=== PATIENT | female | born 1950 | race Asian ===

== ENCOUNTER 2016-12-03 19:16 | Inpatient (IN) | payer MEDICARE ==
[~2016-12-03] VITALS: Ht 165.1 cm; Wt 74.8 kg
[2016-12-04] VITALS: BP 133/72
[2016-12-04] MEDS ORDERED: TYLENOL EXTRA500 MG ORAL (02:49)
[2016-12-04] MEDS ORDERED: HYDROCORTISON28.4 G5 RC (02:49)
[2016-12-04] MEDS: D5 1/2NS w/KCl 20mEq 1,000 ML IV SCH ×3 (03:45→22:49)
[2016-12-04 04:00] VITALS: BP 123/64
[2016-12-04 07:41] LABS: MEAN CORPUSCULAR HEMOGLOBIN 27.9 PG (27.0-31.0); MEAN CORPUSCULAR HGB CONC 31.7 G/DL (32.0-36.0); MEAN CORPUSCULAR VOLUME 88 FL (80-99); MEAN PLATELET VOLUME 5.6 FL (6.5-10.1); PLATELET COUNT 205 K/UL (150-450); RED CELL DISTRIBUTION WIDTH 14.2 % (11.6-14.8); WHITE BLOOD COUNT 4.5 K/UL (4.8-10.8)
[2016-12-04 07:55] VITALS: BP 113/67
[2016-12-04 07:58] LABS: INR 1.1 (0.9-1.1); PROTHROMBIN TIME 10.9 SEC (9.30-11.50)
[2016-12-04 08:12] LABS: ALANINE AMINOTRANSFERASE 8 U/L (3-33); ALBUMIN/GLOBULIN RATIO 1.7 (1.0-2.7); ANION GAP 11 (5-15); ASPARTATE AMINO TRANSFERASE 11 U/L (5-40); CALCIUM 7.8 mg/dL (8.6-10.2); CARBON DIOXIDE 25 mEQ/L (20-30); CHLORIDE 109 mEQ/L (98-107); CREATININE 0.6 mg/dL (0.5-0.9); GLOMERULAR FILTRATION RATE > 60 mL/min (>60); HEMOLYSIS 6; MAGNESIUM 2.2 mg/dL (1.7-2.5); PHOSPHORUS 3.2 mg/dL (2.5-4.8); POTASSIUM 3.5 mEQ/L (3.4-4.9); SODIUM 145 mEQ/L (135-145); TOTAL PROTEIN 4.6 g/dL (6.6-8.7)
[2016-12-04] MEDS: Hydrocortisone 1% Cr 15gm TOPIC SCH ×2 (08:20→18:25)
[2016-12-04 09:39] LABS: BAND NEUTROPHILS % (MANUAL) 0 % (0-8); BASOPHILS % (MANUAL) 0 % (0-2); EOSINOPHILS % (MANUAL) 0 % (0-3); LYMPHOCYTES % (MANUAL) 36 % (20-45); NEUTROPHILS % (MANUAL) 61 % (45-75); PLATELET ESTIMATE ADEQUATE; PLATELET MORPHOLOGY NORMAL; TOTAL CELLS COUNTED 100
[2016-12-04 09:40] LABS: ANISOCYTOSIS 1+; HYPOCHROMASIA 1+
[2016-12-04 12:06] VITALS: BP 125/80
--- NOTE | 2016-12-04 13:20 | Consultation ---
History of Present Illness General Date patient seen: Dec 04, 2016 Chief Complaint: dizzines Referring physician: Dr. Corrigan Reason for Consultation: Inpatient management Present Illness HPI 66 year old female with hx of PUD, was taken to [facility] with CC of dizziness and bright red blood per rectum. After initial work-up she was transferred [place] [facility] [place]. Pt is currently asymptomatic and receiving blood. Allergies: Coded Allergies: No Known Allergies (Unverified , 12/04/16) Medication History Scheduled Hydrocortisone 1% cream (Hydrocortisone 1% cream), 28 GM RC TWICE A DAY, ( Reported) Scheduled PRN Acetaminophen* (Tylenol Extra Strength*), 500 MG ORAL Q8H PRN for Prn Headache/ Temp > 101, (Reported) Patient History Healthcare decision maker Resuscitation status Full Code Advanced Directive on File Past Medical/Surgical History Past Medical/Surgical History: (1) PUD (peptic ulcer disease) (2) Ex-smoker Review of Systems All Other Systems: negative except mentioned in HPI Physical Exam General Appearance: WD/WN, no apparent distress Lines, tubes and drains: peripheral HEENT: normocephalic, atraumatic Neck: non-tender, normal alignment Respiratory/Chest: chest wall non-tender, lungs clear Cardiovascular/Chest: normal peripheral pulses, normal rate Abdomen: non tender Genitourinary/Rectal: normal genital exam Last 24 Hour Vital Signs Date Time Temp Pulse Resp B/P Pulse Ox O2 Delivery O2 Flow Rate FiO2 12/04/16 12:06 97.5 84 18 125/80 100 Room Air 12/04/16 11:56 87 12/04/16 08:01 129 12/04/16 07:55 97.7 88 18 113/67 98 Room Air 12/04/16 04:00 97.4 87 18 123/64 99 Room Air 12/04/16 04:00 94 12/04/16 00:00 98.2 94 18 133/72 99 Room Air 12/04/16 00:00 99 Intake and Output 12/03/16 12/04/16 19:00 07:00 Intake Total 225 ml Balance 225 ml Intake IV Total 225 ml # Voids 1 # Bowel Movements 1 Laboratory Tests Test 12/04/16 06:05 White Blood Count 4.5 K/UL (4.8-10.8) L Red Blood Count 2.60 M/UL (4.20-5.40) L Hemoglobin 7.2 G/DL (12.0-16.0) L Hematocrit 22.8 % (37.0-47.0) L Mean Corpuscular Volume 88 FL (80-99) Mean Corpuscular Hemoglobin 27.9 PG (27.0-31.0) Mean Corpuscular Hemoglobin Concent 31.7 G/DL (32.0-36.0) L Red Cell Distribution Width 14.2 % (11.6-14.8) Platelet Count 205 K/UL (150-450) Mean Platelet Volume 5.6 FL (6.5-10.1) L Neutrophils (%) (Auto) % (45.0-75.0) Lymphocytes (%) (Auto) % (20.0-45.0) Monocytes (%) (Auto) % (1.0-10.0) Eosinophils (%) (Auto) % (0.0-3.0) Basophils (%) (Auto) % (0.0-2.0) Differential Total Cells Counted 100 Neutrophils % (Manual) 61 % (45-75) Lymphocytes % (Manual) 36 % (20-45) Monocytes % (Manual) 3 % (1-10) Eosinophils % (Manual) 0 % (0-3) Basophils % (Manual) 0 % (0-2) Band Neutrophils 0 % (0-8) Platelet Estimate Adequate Platelet Morphology Normal Hypochromasia 1+ Anisocytosis 1+ Prothrombin Time 10.9 SEC (9.30-11.50) Prothromb Time International Ratio 1.1 (0.9-1.1) Activated Partial Thromboplast Time 24 SEC (23-33) Sodium Level 145 mEQ/L (135-145) Potassium Level 3.5 mEQ/L (3.4-4.9) Chloride Level 109 mEQ/L (98-107) H Carbon Dioxide Level 25 mEQ/L (20-30) Anion Gap 11 (5-15) Blood Urea Nitrogen 12 mg/dL (7-23) Creatinine 0.6 mg/dL (0.5-0.9) Estimat Glomerular Filtration Rate > 60 mL/min (>60) Glucose Level 121 mg/dL (74-106) H Calcium Level 7.8 mg/dL (8.6-10.2) L Phosphorus Level 3.2 mg/dL (2.5-4.8) Magnesium Level 2.2 mg/dL (1.7-2.5) Total Bilirubin 0.3 mg/dL (0.0-1.2) Aspartate Amino Transf (AST/SGOT) 11 U/L (5-40) Alanine Aminotransferase (ALT/SGPT) 8 U/L (3-33) Alkaline Phosphatase 33 U/L (35-104) L Total Protein 4.6 g/dL (6.6-8.7) L Albumin 2.9 g/dL (3.5-5.2) L Globulin 1.7 g/dL Albumin/Globulin Ratio 1.7 (1.0-2.7) Height (Feet): 5 Height (Inches): 6.00 Weight (Pounds): 165 Medications Current Medications Medications (Trade) Dose Ordered Sig/Betty Route PRN Reason Start Time Stop Time Status Last Admin Dose Admin Acetaminophen (Tylenol) 650 mg Q6H PRN ORAL Mild Pain/Temp > 100.5 12/04/16 01:30 01/03/17 01:29 Dextrose (Dextrose 50%) STAT PRN IV Hypoglycemia 12/04/16 01:30 01/03/17 01:29 Dextrose/ Electrolytes (D5 0.45%NS W/ KCl 20mEq) 1,000 ml @ 75 mls/hr [id number] IV 12/04/16 03:00 01/03/17 02:59 12/04/16 03:45 Hydrocortisone (Hydrocortisone) 1 applic TWICE A DAY TOPIC 12/04/16 09:00 12/10/16 18:00 12/04/16 08:20 Ondansetron HCl (Zofran) 4 mg Q4H PRN IVP Nausea & Vomiting 12/04/16 01:30 01/03/17 01:29 Pantoprazole (Protonix) 40 mg BID ORAL 12/04/16 09:00 01/03/17 08:59 12/04/16 08:20 Assessment/Plan Problem List: (1) Symptomatic anemia ICD Codes: D64.9 - Anemia, unspecified SNOMED: 251264265 (2) GIB (gastrointestinal bleeding) ICD Codes: K92.2 - Gastrointestinal hemorrhage, unspecified SNOMED: 12949055 (3) PUD (peptic ulcer disease) ICD Codes: K27.9 - Peptic ulcer, site unspecified, unspecified as acute or chronic, without hemorrhage or perforation SNOMED: 98704625 (4) Ex-smoker ICD Codes: Z87.891 - Personal history of nicotine dependence SNOMED: 1833415 Assessment/Plan NPO IV hydration prbc prn anemia w/u GI evaluation dvt prophylaxis. TREVOR GONSALES Dec 04, 2016 13:20
[2016-12-04 13:29] LABS: PATH BLOOD SMEAR/OMC SENT TO PATHOLOGIST
--- NOTE | 2016-12-04 13:57 | History & Physical ---
History and Physical History & Physicial Dictated for Int Med-Dr Sánchez no. [id number]. MENDEZ YEUNG Dec 04, 2016 13:57
[2016-12-04 14:07] LABS: RETICULOCYTE COUNT 1.2 % (0.0-2.0)
[2016-12-04 16:15] VITALS: BP 131/67
[2016-12-04 16:57] LABS: EOSINOPHILS % (AUTO) 0.5 % (0.0-3.0); LYMPHOCYTES % (AUTO) 32.5 % (20.0-45.0); MEAN CORPUSCULAR HEMOGLOBIN 29.4 PG (27.0-31.0); MEAN CORPUSCULAR VOLUME 89 FL (80-99); MEAN PLATELET VOLUME 5.5 FL (6.5-10.1); MONOCYTES % (AUTO) 8.7 % (1.0-10.0); NEUTROPHILS % (AUTO) 57.3 % (45.0-75.0); PLATELET COUNT 193 K/UL (150-450); RED BLOOD COUNT 2.76 M/UL (4.20-5.40); RED CELL DISTRIBUTION WIDTH 14.3 % (11.6-14.8); WHITE BLOOD COUNT 4.4 K/UL (4.8-10.8)
[2016-12-04 17:10] LABS: INR 1.1 (0.9-1.1); PROTHROMBIN TIME 10.7 SEC (9.30-11.50)
[2016-12-04] MEDS ORDERED: D5NS 1000ml IV ONE ×2 (17:18→17:23)
[2016-12-04] MEDS ORDERED: Tubing Blood Filter IV ONE ×2 (17:18→17:23)
[2016-12-04] MEDS ORDERED: Sterile Water Irrig 1000ml IRRIG ONE ×2 (17:18→17:23)
[2016-12-04] MEDS ORDERED: NS 275ml ONE (17:23)
[2016-12-04 20:00] VITALS: BP 127/66
--- NOTE | 2016-12-04 21:08 | History and Physical Report ---
DATE OF ADMISSION: 12/03/2016 CHIEF COMPLAINT: The patient is a 66-year-old female, presents with chief complaint of dark stools. HISTORY OF PRESENT ILLNESS: The patient has a history of peptic ulcer disease 10 years ago. The patient states she has had dark stools for approximately two days. The patient was seen at [facility] on 12/01/2016. The patient apparently had a normal hemoglobin and hematocrit at that time. The patient was discharged home to follow up with her primary care physician. The patient states she had another dark stool yesterday, 12/03/2016. The patient presented to [place] emergency room. The patient was found to have a hemoglobin of 7.2. The patient is admitted for severe anemia and rectal bleeding. REVIEW OF SYSTEMS: Constitutional: The patient denies weight loss or weight gain. The patient denies fevers or chills. HEENT: The patient denies ear or throat pain. Cardiovascular: The patient denies palpitations or chest pain. Chest: The patient denies wheezes or shortness of breath. Abdominal: The patient denies nausea, vomiting, diarrhea, or constipation. The patient complains of dark stools as above. Neurologic: The patient denied seizure or generalized weakness. Genitourinary: The patient denies dysuria or increased frequency of urination. PAST MEDICAL HISTORY: Significant for peptic ulcer disease in 2005, status post endoscopy and colonoscopy. PAST SURGICAL HISTORY: The patient denies. CURRENT MEDICATIONS: 1. A p.r.n. Tylenol. 2. Over the counter vitamins. ALLERGIES: No known drug allergies. SOCIAL HISTORY: The patient is single and is retired. The patient denies tobacco use, having quit in 2005. The patient denies alcohol use. PHYSICAL EXAMINATION: VITAL SIGNS: Temperature 98.2 degrees, respirations 18, pulse 94, and blood pressure 133/72. GENERAL: The patient is a well-developed and well-nourished female, in no apparent distress. HEENT: Eyes, pupils are equal and responsive to light and accommodation. Extraocular movements are intact. NECK: Supple without lymphadenopathy. CHEST: Lungs are clear to auscultation bilaterally without wheezes or rales. CARDIOVASCULAR: Regular rhythm and rate. S1, S2 are normal without murmurs, rubs, or gallops. ABDOMEN: Soft, nondistended with positive bowel sounds. No evidence of hepatosplenomegaly. Currently, no rebound or guarding noted. EXTREMITIES: Negative for clubbing, cyanosis, or edema. RECTAL/GENITAL: Refused. NEUROLOGIC: Cranial nerves II through XII are grossly intact without focal deficits. Motor strength is 5/5 bilaterally. Deep tendon reflexes are 2+ plantar. LABORATORY STUDIES: WBC 4.5, hemoglobin 10.2, hematocrit 22.8, and platelets 205,000. Sodium 145, potassium 3.5, chloride 109, CO2 25, BUN 12, creatinine 0.6, and glucose 121. ProTime 10.9, INR 1.1, and PTT 24. ASSESSMENT: This is a 66-year-old female with: 1. Rectal hemorrhage. 2. Syncope. 3. Severe anemia. 4. Peptic ulcer disease. TREATMENT: 1. Rectal hemorrhage. A Gastroenterology consultation was obtained with Dr. Gertrudis Nash. The patient is currently on a clear liquid diet. The patient may need endoscopy and colonoscopy to rule out upper gastrointestinal versus lower gastrointestinal bleeding. We will follow the recommendations of Gastroenterology. 2. Syncope, this is probably secondary to severe anemia. 3. Severe anemia. The patient is currently receiving two units of packed RBCs. Serial hemoglobins will be performed. Transfuse as needed for hemoglobin less than 7. 4. Peptic ulcer disease. The patient has been started empirically on intravenous Protonix. Naeem Corrigan M.D. DR: Ruben JOB#: [id number] CC:
--- NOTE | 2016-12-04 23:22 | Pulmonology Progress Note ---
Assessment/Plan Problems: (1) Symptomatic anemia (2) GIB (gastrointestinal bleeding) (3) PUD (peptic ulcer disease) (4) Ex-smoker Assessment/Plan npo IV fluids check h/h H2 reyna symptomatic treatment Subjective ROS Limited/Unobtainable: No Interval Events: no new complains, no BM Allergies: Coded Allergies: No Known Allergies (Unverified , 12/04/16) Objective Last 24 Hour Vital Signs Date Time Temp Pulse Resp B/P Pulse Ox O2 Delivery O2 Flow Rate FiO2 12/04/16 20:00 76 12/04/16 20:00 97.6 80 19 127/66 97 12/04/16 16:15 98.8 82 20 131/67 100 Room Air 12/04/16 16:07 83 12/04/16 12:06 97.5 84 18 125/80 100 Room Air 12/04/16 11:56 87 12/04/16 08:01 129 12/04/16 07:55 97.7 88 18 113/67 98 Room Air 12/04/16 04:00 97.4 87 18 123/64 99 Room Air 12/04/16 04:00 94 12/04/16 00:00 98.2 94 18 133/72 99 Room Air 12/04/16 00:00 99 Intake and Output 12/03/16 12/04/16 19:00 07:00 Intake Total 225 ml Balance 225 ml Intake IV Total 225 ml # Voids 1 # Bowel Movements 1 General Appearance: WD/WN HEENT: normocephalic, atraumatic Respiratory/Chest: chest wall non-tender, lungs clear Cardiovascular: normal peripheral pulses, normal rate Abdomen: normal bowel sounds, no organomegaly Extremities: no cyanosis, no clubbing Skin: no rash Laboratory Tests 12/04/16 06:05: White Blood Count 4.5L, Red Blood Count 2.60L, Hemoglobin 7.2L, Hematocrit 22.8L , Mean Corpuscular Volume 88, Mean Corpuscular Hemoglobin 27.9, Mean Corpuscular Hemoglobin Concent 31.7L, Red Cell Distribution Width 14.2, Platelet Count 205, Mean Platelet Volume 5.6L, Neutrophils (%) (Auto) , Lymphocytes (%) (Auto) , Monocytes (%) (Auto) , Eosinophils (%) (Auto) , Basophils (%) (Auto) , Differential Total Cells Counted 100, Neutrophils % ( Manual) 61, Lymphocytes % (Manual) 36, Monocytes % (Manual) 3, Eosinophils % ( Manual) 0, Basophils % (Manual) 0, Band Neutrophils 0, Platelet Estimate Adequate, Platelet Morphology Normal, Hypochromasia 1+, Anisocytosis 1+, Erythrocyte Sedimentation Rate 9, Reticulocyte Count 1.2, Prothrombin Time 10.9 , Prothromb Time International Ratio 1.1, Activated Partial Thromboplast Time 24 , Sodium Level 145, Potassium Level 3.5, Chloride Level 109H, Carbon Dioxide Level 25, Anion Gap 11, Blood Urea Nitrogen 12, Creatinine 0.6, Estimat Glomerular Filtration Rate > 60, Glucose Level 121H, Calcium Level 7.8L, Phosphorus Level 3.2, Magnesium Level 2.2, Iron Level 81, Total Iron Binding Capacity 216L, Percent Iron Saturation 38, Unsaturated Iron Binding 135, Total Bilirubin 0.3, Aspartate Amino Transf (AST/SGOT) 11, Alanine Aminotransferase ( ALT/SGPT) 8, Alkaline Phosphatase 33L, Lactate Dehydrogenase 153, Total Protein 4.6L, Albumin 2.9L, Globulin 1.7, Albumin/Globulin Ratio 1.7, Carcinoembryonic Antigen 1.1, Vitamin B12 Level 174L, Folate [Pending] 12/04/16 16:35: White Blood Count 4.4L, Red Blood Count 2.76L, Hemoglobin 8.1L, Hematocrit 24.6L , Mean Corpuscular Volume 89, Mean Corpuscular Hemoglobin 29.4, Mean Corpuscular Hemoglobin Concent 33.0, Red Cell Distribution Width 14.3, Platelet Count 193, Mean Platelet Volume 5.5L, Neutrophils (%) (Auto) 57.3, Lymphocytes ( %) (Auto) 32.5, Monocytes (%) (Auto) 8.7, Eosinophils (%) (Auto) 0.5, Basophils (%) (Auto) 1.0, Prothrombin Time 10.7, Prothromb Time International Ratio 1.1, Activated Partial Thromboplast Time 22L Current Medications Medications (Trade) Dose Ordered Sig/Betty Route PRN Reason Start Time Stop Time Status Last Admin Dose Admin Acetaminophen (Tylenol) 650 mg Q6H PRN ORAL Mild Pain/Temp > 100.5 12/04/16 01:30 01/03/17 01:29 Dextrose (Dextrose 50%) STAT PRN IV Hypoglycemia 12/04/16 01:30 01/03/17 01:29 Dextrose/ Electrolytes (D5 0.45%NS W/ KCl 20mEq) 1,000 ml @ 75 mls/hr [id number] IV 12/04/16 03:00 01/03/17 02:59 12/04/16 22:49 Hydrocortisone (Hydrocortisone) 1 applic TWICE A DAY TOPIC 12/04/16 09:00 12/10/16 18:00 12/04/16 18:25 Ondansetron HCl (Zofran) 4 mg Q4H PRN IVP Nausea & Vomiting 12/04/16 01:30 01/03/17 01:29 Pantoprazole (Protonix) 40 mg BID ORAL 12/04/16 09:00 01/03/17 08:59 12/04/16 18:24 TREVOR GONSALES Dec 04, 2016 23:22
[2016-12-05] VITALS (16 sets, daily range): BP systolic 70–133; BP diastolic 38–73
[2016-12-05 07:14] LABS: INR 1.1 (0.9-1.1); PROTHROMBIN TIME 10.8 SEC (9.30-11.50)
[2016-12-05 07:43] LABS: ALANINE AMINOTRANSFERASE 10 U/L (3-33); ALBUMIN/GLOBULIN RATIO 1.9 (1.0-2.7); ANION GAP 11 (5-15); ASPARTATE AMINO TRANSFERASE 17 U/L (5-40); CALCIUM 7.8 mg/dL (8.6-10.2); CARBON DIOXIDE 27 mEQ/L (20-30); CHLORIDE 107 mEQ/L (98-107); CREATININE 0.6 mg/dL (0.5-0.9); GLOMERULAR FILTRATION RATE > 60 mL/min (>60); HEMOLYSIS 2; MEAN CORPUSCULAR HEMOGLOBIN 29.1 PG (27.0-31.0); MEAN CORPUSCULAR VOLUME 88 FL (80-99); MEAN PLATELET VOLUME 5.6 FL (6.5-10.1); PLATELET COUNT 209 K/UL (150-450); POTASSIUM 3.7 mEQ/L (3.4-4.9); RED BLOOD COUNT 2.64 M/UL (4.20-5.40); RED CELL DISTRIBUTION WIDTH 14.5 % (11.6-14.8); SODIUM 145 mEQ/L (135-145); TOTAL PROTEIN 4.4 g/dL (6.6-8.7); WHITE BLOOD COUNT 4.4 K/UL (4.8-10.8)
[2016-12-05] MEDS: Hydrocortisone 1% Cr 15gm TOPIC SCH ×2 (08:24→17:35)
--- NOTE | 2016-12-05 09:35 | General Progress Note ---
Assessment/Plan Assessment/Plan GI Consult Dictated EGD/Colon in am Thank you Mayte Nash Subjective Allergies: Coded Allergies: No Known Allergies (Unverified , 12/04/16) Objective Last 24 Hour Vital Signs Date Time Temp Pulse Resp B/P Pulse Ox O2 Delivery O2 Flow Rate FiO2 12/05/16 08:27 97.7 87 18 120/73 98 Room Air 12/05/16 04:00 76 12/05/16 04:00 97.7 88 20 126/73 96 Room Air 12/05/16 00:00 98.2 87 20 133/64 97 Room Air 12/05/16 00:00 76 12/04/16 20:00 76 12/04/16 20:00 97.6 80 19 127/66 97 12/04/16 16:15 98.8 82 20 131/67 100 Room Air 12/04/16 16:07 83 12/04/16 12:06 97.5 84 18 125/80 100 Room Air 12/04/16 11:56 87 Intake and Output 12/04/16 12/05/16 19:00 07:00 Intake Total 675 ml 825 ml Output Total 250 ml 100 ml Balance 425 ml 725 ml Intake IV Total 675 ml 825 ml Output Urine Total 200 ml 100 ml Stool Total 50 ml # Voids 3 3 # Bowel Movements 1 2 Laboratory Tests 12/04/16 16:35: White Blood Count 4.4L, Red Blood Count 2.76L, Hemoglobin 8.1L, Hematocrit 24.6L , Mean Corpuscular Volume 89, Mean Corpuscular Hemoglobin 29.4, Mean Corpuscular Hemoglobin Concent 33.0, Red Cell Distribution Width 14.3, Platelet Count 193, Mean Platelet Volume 5.5L, Neutrophils (%) (Auto) 57.3, Lymphocytes ( %) (Auto) 32.5, Monocytes (%) (Auto) 8.7, Eosinophils (%) (Auto) 0.5, Basophils (%) (Auto) 1.0, Prothrombin Time 10.7, Prothromb Time International Ratio 1.1, Activated Partial Thromboplast Time 22L 12/05/16 03:50: Stool Occult Blood [Pending] 12/05/16 05:20: White Blood Count 4.4L, Red Blood Count 2.64L, Hemoglobin 7.7L, Hematocrit 23.3L , Mean Corpuscular Volume 88, Mean Corpuscular Hemoglobin 29.1, Mean Corpuscular Hemoglobin Concent 33.0, Red Cell Distribution Width 14.5, Platelet Count 209, Mean Platelet Volume 5.6L, Neutrophils (%) (Auto) , Lymphocytes (%) ( Auto) , Monocytes (%) (Auto) , Eosinophils (%) (Auto) , Basophils (%) (Auto) , Prothrombin Time 10.8, Prothromb Time International Ratio 1.1, Activated Partial Thromboplast Time 23, Neutrophils % (Manual) [Pending], Lymphocytes % ( Manual) [Pending], Platelet Estimate [Pending], Platelet Morphology [Pending], Sodium Level 145, Potassium Level 3.7, Chloride Level 107, Carbon Dioxide Level 27, Anion Gap 11, Blood Urea Nitrogen 6L, Creatinine 0.6, Estimat Glomerular Filtration Rate > 60, Glucose Level 125H, Calcium Level 7.8L, Phosphorus Level 3.0, Magnesium Level 2.0, Total Bilirubin 0.2, Aspartate Amino Transf (AST/SGOT ) 17, Alanine Aminotransferase (ALT/SGPT) 10, Alkaline Phosphatase 33L, Total Protein 4.4L, Albumin 2.9L, Globulin 1.5, Albumin/Globulin Ratio 1.9 Height (Feet): 5 Height (Inches): 6.00 Weight (Pounds): 165 NINAVINODTRENTANTONELLA Dec 05, 2016 09:35
[2016-12-05] MEDS ORDERED: Nulytely 4L ORAL ONE (10:30)
[2016-12-05] MEDS ORDERED: Bisacodyl EC 5mg tab ORAL ONE (10:30)
[2016-12-05 10:51] LABS: ANISOCYTOSIS 1+; BAND NEUTROPHILS % (MANUAL) 0 % (0-8); BASOPHILS % (MANUAL) 0 % (0-2); EOSINOPHILS % (MANUAL) 1 % (0-3); HYPOCHROMASIA 1+; LYMPHOCYTES % (MANUAL) 24 % (20-45); NEUTROPHILS % (MANUAL) 64 % (45-75); PLATELET ESTIMATE ADEQUATE; PLATELET MORPHOLOGY NORMAL; TOTAL CELLS COUNTED 100
[2016-12-05 12:06] LABS: MEAN CORPUSCULAR HEMOGLOBIN 28.5 PG (27.0-31.0); MEAN CORPUSCULAR HGB CONC 32.4 G/DL (32.0-36.0); MEAN CORPUSCULAR VOLUME 88 FL (80-99); MEAN PLATELET VOLUME 5.5 FL (6.5-10.1); PLATELET COUNT 198 K/UL (150-450); RED BLOOD COUNT 2.34 M/UL (4.20-5.40); RED CELL DISTRIBUTION WIDTH 14.3 % (11.6-14.8); WHITE BLOOD COUNT 5.3 K/UL (4.8-10.8)
[2016-12-05 12:53] LABS: BAND NEUTROPHILS % (MANUAL) 0 % (0-8); BASOPHILS % (MANUAL) 0 % (0-2); EOSINOPHILS % (MANUAL) 0 % (0-3); LYMPHOCYTES % (MANUAL) 15 % (20-45); NEUTROPHILS % (MANUAL) 82 % (45-75); PLATELET ESTIMATE ADEQUATE; PLATELET MORPHOLOGY NORMAL; TOTAL CELLS COUNTED 100
[2016-12-05 12:54] LABS: ANISOCYTOSIS 1+; HYPOCHROMASIA 1+
--- NOTE | 2016-12-05 14:17 | Internal Med Progress Note ---
Subjective Date of Service: Dec 05, 2016 Physician Name Naeem Yeung Attending Physician Brian Sánchez MD Current Medications Medications (Trade) Dose Ordered Sig/Betty Route PRN Reason Start Time Stop Time Status Last Admin Dose Admin Acetaminophen (Tylenol) 650 mg Q6H PRN ORAL Mild Pain/Temp > 100.5 12/05/16 14:00 01/04/17 13:59 Dextrose (Dextrose 50%) STAT PRN IV Hypoglycemia 12/05/16 14:00 01/04/17 13:59 Dextrose/ Electrolytes (D5 0.45%NS W/ KCl 20mEq) 1,000 ml @ 75 mls/hr [id number] IV 12/05/16 14:30 01/04/17 14:29 Hydrocortisone (Hydrocortisone) 1 applic TWICE A DAY TOPIC 12/05/16 18:00 01/04/17 17:59 Ondansetron HCl (Zofran) 4 mg Q4H PRN IVP Nausea & Vomiting 12/05/16 14:00 01/04/17 13:59 Pantoprazole (Protonix) 40 mg BID ORAL 12/05/16 18:00 01/04/17 17:59 Allergies: Coded Allergies: No Known Allergies (Unverified , 12/04/16) ROS Limited/Unobtainable: No Constitutional: Reports: no symptoms HEENT: Reports: no symptoms Cardiovascular: Reports: no symptoms Respiratory: Reports: no symptoms Gastrointestinal/Abdominal: Reports: no symptoms Genitourinary: Reports: no symptoms Neurologic/Psychiatric: Reports: no symptoms Subjective 66 YO F admitted for rectal bleeding. Endoscopy and colonoscopy scheduled for 12/06/16. Objective Last Vital Signs Date Time Temp Pulse Resp B/P Pulse Ox O2 Delivery O2 Flow Rate FiO2 12/05/16 13:30 97.9 89 18 132/71 98 Room Air Laboratory Tests Test 12/04/16 16:35 12/05/16 03:50 12/05/16 05:20 12/05/16 12:00 White Blood Count 4.4 K/UL (4.8-10.8) L 4.4 K/UL (4.8-10.8) L 5.3 K/UL (4.8-10.8) Red Blood Count 2.76 M/UL (4.20-5.40) L 2.64 M/UL (4.20-5.40) L 2.34 M/UL (4.20-5.40) L Hemoglobin 8.1 G/DL (12.0-16.0) L 7.7 G/DL (12.0-16.0) L 6.7 G/DL (12.0-16.0) *L Hematocrit 24.6 % (37.0-47.0) L 23.3 % (37.0-47.0) L 20.6 % (37.0-47.0) L Mean Corpuscular Volume 89 FL (80-99) 88 FL (80-99) 88 FL (80-99) Mean Corpuscular Hemoglobin 29.4 PG (27.0-31.0) 29.1 PG (27.0-31.0) 28.5 PG (27.0-31.0) Mean Corpuscular Hemoglobin Concent 33.0 G/DL (32.0-36.0) 33.0 G/DL (32.0-36.0) 32.4 G/DL (32.0-36.0) Red Cell Distribution Width 14.3 % (11.6-14.8) 14.5 % (11.6-14.8) 14.3 % (11.6-14.8) Platelet Count 193 K/UL (150-450) 209 K/UL (150-450) 198 K/UL (150-450) Mean Platelet Volume 5.5 FL (6.5-10.1) L 5.6 FL (6.5-10.1) L 5.5 FL (6.5-10.1) L Neutrophils (%) (Auto) 57.3 % (45.0-75.0) % (45.0-75.0) % (45.0-75.0) Lymphocytes (%) (Auto) 32.5 % (20.0-45.0) % (20.0-45.0) % (20.0-45.0) Monocytes (%) (Auto) 8.7 % (1.0-10.0) % (1.0-10.0) % (1.0-10.0) Eosinophils (%) (Auto) 0.5 % (0.0-3.0) % (0.0-3.0) % (0.0-3.0) Basophils (%) (Auto) 1.0 % (0.0-2.0) % (0.0-2.0) % (0.0-2.0) Prothrombin Time 10.7 SEC (9.30-11.50) 10.8 SEC (9.30-11.50) Prothromb Time International Ratio 1.1 (0.9-1.1) 1.1 (0.9-1.1) Activated Partial Thromboplast Time 22 SEC (23-33) L 23 SEC (23-33) Stool Occult Blood Positive (NEGATIVE) Differential Total Cells Counted 100 100 Neutrophils % (Manual) 64 % (45-75) 82 % (45-75) H Lymphocytes % (Manual) 24 % (20-45) 15 % (20-45) L Monocytes % (Manual) 11 % (1-10) H 3 % (1-10) Eosinophils % (Manual) 1 % (0-3) 0 % (0-3) Basophils % (Manual) 0 % (0-2) 0 % (0-2) Band Neutrophils 0 % (0-8) 0 % (0-8) Platelet Estimate Adequate Adequate Platelet Morphology Normal Normal Hypochromasia 1+ 1+ Anisocytosis 1+ 1+ Sodium Level 145 mEQ/L (135-145) Potassium Level 3.7 mEQ/L (3.4-4.9) Chloride Level 107 mEQ/L (98-107) Carbon Dioxide Level 27 mEQ/L (20-30) Anion Gap 11 (5-15) Blood Urea Nitrogen 6 mg/dL (7-23) L Creatinine 0.6 mg/dL (0.5-0.9) Estimat Glomerular Filtration Rate > 60 mL/min (>60) Glucose Level 125 mg/dL (74-106) H Calcium Level 7.8 mg/dL (8.6-10.2) L Phosphorus Level 3.0 mg/dL (2.5-4.8) Magnesium Level 2.0 mg/dL (1.7-2.5) Total Bilirubin 0.2 mg/dL (0.0-1.2) Aspartate Amino Transf (AST/SGOT) 17 U/L (5-40) Alanine Aminotransferase (ALT/SGPT) 10 U/L (3-33) Alkaline Phosphatase 33 U/L (35-104) L Total Protein 4.4 g/dL (6.6-8.7) L Albumin 2.9 g/dL (3.5-5.2) L Globulin 1.5 g/dL Albumin/Globulin Ratio 1.9 (1.0-2.7) Intake and Output 12/04/16 12/05/16 19:00 07:00 Intake Total 675 ml 825 ml Output Total 250 ml 100 ml Balance 425 ml 725 ml IV Total 675 ml 825 ml Output Urine Total 200 ml 100 ml Stool Total 50 ml # Voids 3 3 # Bowel Movements 1 2 Objective General: alert, cooperative, no distress, appears stated age Head: normocephalic, without obvious abnormality, atraumatic Eyes: conjunctivae/corneas clear. PERRL, EOM's intact Throat: lips, mucosa, and tongue normal. MMM Neck: supple, symmetrical, trachea midline, and no JVD Lungs: clear to auscultation bilaterally Heart: regular rate and rhythm, S1, S2 normal, no murmur, click, rub or gallop Abdomen: soft, non-tender, non-distended, bowel sounds normal; no masses or organomegaly Extremities: extremities normal, atraumatic, no cyanosis or edema Pulses: 2+ and symmetric Skin: skin color, texture, turgor normal; no rashes or lesions Neurologic: grossly normal, no focal deficits Assessment/Plan Problem List: (1) Hematochezia (2) Severe anemia Assessment & Plan: S/P 3 units PRBC total transfusion. Await endoscopy and colonoscopy on Tue12/06/16 (3) GIB (gastrointestinal bleeding) Assessment & Plan: see GI note. S/P transfusion 1 unit packed red blood cells today (3 total). Endoscopy and colonoscopy Tue12/06/16. (4) PUD (peptic ulcer disease) Status: not improved NAEEM YEUNG Dec 05, 2016 14:17
[2016-12-05] MEDS: D5 1/2NS w/KCl 20mEq 1,000 ML IV SCH (14:49)
--- NOTE | 2016-12-05 21:28 | Consultation ---
DATE OF CONSULTATION: 12/05/2016 GASTROLOGY CONSULTATION CHIEF COMPLAINT: I was asked to see this patient by Dr. Brian Sánchez for evaluation of gastrointestinal bleeding. HISTORY OF PRESENT ILLNESS: The patient is a pleasant 66-year-old woman, who was in her usual state of health until about two days prior to admission when she felt dizzy and lightheaded. She initially was at an outside hospital for concern for bleeding was noted, but her blood levels were apparently normal. She was sent home, but last night and went to [facility] where she was found to have significant bleeding. There was a drop in hematocrit. The patient received a blood transfusion and was sent to [facility] when she received a second unit of blood. She now has had no more bleeding. There has been no nausea, vomiting or abdominal pain. She had an episode of peptic ulcer disease in 2005 and at that time, she underwent endoscopy and colonoscopy. PAST MEDICAL HISTORY: Otherwise, negative except for the history of peptic ulcer disease. MEDICATIONS: None including no use of nonsteroidal antiinflammatory drugs. SOCIAL HISTORY: The patient does not smoke or drink alcohol. She lives here with her sister. FAMILY HISTORY: Noncontributory. REVIEW OF SYSTEMS: Otherwise, negative. PHYSICAL EXAMINATION: GENERAL: This is a pleasant woman, seen in her room. HEENT: Normocephalic and atraumatic. Sclerae anicteric. Oropharynx clear. NECK: Supple. CHEST: Clear to auscultation. CARDIOVASCULAR: Regular rate. ABDOMEN: Soft with good bowel sounds. There is no organomegaly or tenderness. EXTREMITIES: Revealed no edema. NEUROLOGIC: Nonfocal. LABORATORY AND DIAGNOSTIC DATA: Laboratory data was noted. ASSESSMENT: This patient presents with excessive bleeding, which may be upper or lower in nature with a degree of blood loss. The patient should have a third unit of blood to volume and resuscitate her and make sure she has stable hematocrit. The patient will undergo a GI tract preparation and will undergo an endoscopy and colonoscopy tomorrow. Serial CBCs should be done and the patient will be kept on clear liquids today and NPO after midnight. Proton pump inhibitor twice daily has been suggested. RECOMMENDATIONS: Per above discussion and per orders written in the chart. Thank you for asking me to participate in the care of this patient. Gertrudis Nash M.D. DR: BRIANA JOB#: [id number] CC:
[2016-12-06] VITALS (24 sets, daily range): BP systolic 99–137; BP diastolic 0–78
[2016-12-06] MEDS: D5 1/2NS w/KCl 20mEq 1,000 ML IV SCH ×2 (04:14→17:25)
[2016-12-06 05:03] LABS: BASOPHILS % (AUTO) 0.7 % (0.0-2.0); LYMPHOCYTES % (AUTO) 27.7 % (20.0-45.0); MEAN CORPUSCULAR HEMOGLOBIN 29.8 PG (27.0-31.0); MEAN CORPUSCULAR HGB CONC 33.8 G/DL (32.0-36.0); MEAN CORPUSCULAR VOLUME 88 FL (80-99); MEAN PLATELET VOLUME 5.2 FL (6.5-10.1); MONOCYTES % (AUTO) 7.6 % (1.0-10.0); PLATELET COUNT 221 K/UL (150-450); RED BLOOD COUNT 3.13 M/UL (4.20-5.40)
[2016-12-06 05:27] LABS: ANION GAP 12 (5-15); CALCIUM 8.1 mg/dL (8.6-10.2); CARBON DIOXIDE 25 mEQ/L (20-30); CHLORIDE 105 mEQ/L (98-107); CREATININE 0.6 mg/dL (0.5-0.9); GLOMERULAR FILTRATION RATE > 60 mL/min (>60); HEMOLYSIS 3; SODIUM 142 mEQ/L (135-145)
[2016-12-06] MEDS ORDERED: NS 275ml ONE (08:33)
[2016-12-06] MEDS ORDERED: Tubing Blood Filter IV ONE (08:33)
[2016-12-06] MEDS: Hydrocortisone 1% Cr 15gm TOPIC SCH ×2 (08:58→17:25)
--- NOTE | 2016-12-06 10:59 | Pulmonology Progress Note ---
Assessment/Plan Problems: (1) Symptomatic anemia (2) GIB (gastrointestinal bleeding) (3) PUD (peptic ulcer disease) (4) Ex-smoker Assessment/Plan transfer to [facility] pt getting blood right now, npo IV fluids check h/h H2 reyna symptomatic treatment Subjective ROS Limited/Unobtainable: No Interval Events: late note for 12/05/16 Pt seen around noon yesterday. H/H dropping. Allergies: Coded Allergies: No Known Allergies (Unverified , 12/04/16) Objective Last 24 Hour Vital Signs Date Time Temp Pulse Resp B/P Pulse Ox O2 Delivery O2 Flow Rate FiO2 12/06/16 10:00 78 16 101/49 98 Room Air 12/06/16 09:00 81 16 124/57 99 Room Air 12/06/16 08:00 98.0 82 18 106/48 98 Room Air 12/06/16 08:00 90 12/06/16 07:00 74 13 100/50 95 Room Air 12/06/16 06:00 84 18 121/78 98 Room Air 12/06/16 05:00 98.2 75 15 108/50 96 Room Air 12/06/16 04:00 84 18 121/78 98 Room Air 12/06/16 04:00 84 12/06/16 03:00 73 13 115/52 97 Room Air 12/06/16 02:00 72 12 100/48 97 Room Air 12/06/16 01:00 98.6 76 15 129/65 98 Room Air 12/06/16 00:00 72 12 124/48 97 Room Air 12/06/16 00:00 74 12/05/16 23:00 75 14 108/43 97 Room Air 12/05/16 22:00 80 15 89/52 98 Room Air 12/05/16 21:00 79 19 119/47 99 Room Air 12/05/16 20:00 83 12/05/16 20:00 98.8 82 17 110/43 99 Room Air 12/05/16 19:00 81 17 108/54 100 Room Air 12/05/16 18:00 78 17 107/43 100 Room Air 12/05/16 17:00 80 17 101/43 100 Room Air 12/05/16 16:00 98.0 82 16 104/40 100 Room Air 12/05/16 16:00 76 12/05/16 15:00 85 17 104/38 100 Room Air 12/05/16 14:00 86 17 97/43 98 Room Air 12/05/16 13:30 97.9 89 18 132/71 98 Room Air 12/05/16 12:07 88 12/05/16 11:52 97.9 87 18 91/53 95 Room Air 12/05/16 11:30 70/38 Intake and Output 12/05/16 12/06/16 19:00 07:00 Intake Total 965 ml 1116 ml Balance 965 ml 1116 ml Intake Oral 120 ml 0 ml IV Total 595 ml 806 ml Blood Product 250 ml 250 ml Other 60 ml # Voids 1 1 # Bowel Movements 1 General Appearance: WD/WN HEENT: normocephalic, atraumatic Respiratory/Chest: chest wall non-tender, lungs clear Cardiovascular: normal peripheral pulses, normal rate Abdomen: normal bowel sounds, soft, non tender Extremities: no cyanosis, no clubbing Skin: no rash, no lesions Laboratory Tests 12/05/16 12:00: White Blood Count 5.3, Red Blood Count 2.34L, Hemoglobin 6.7*L, Hematocrit 20.6L , Mean Corpuscular Volume 88, Mean Corpuscular Hemoglobin 28.5, Mean Corpuscular Hemoglobin Concent 32.4, Red Cell Distribution Width 14.3, Platelet Count 198, Mean Platelet Volume 5.5L, Neutrophils (%) (Auto) , Lymphocytes (%) ( Auto) , Monocytes (%) (Auto) , Eosinophils (%) (Auto) , Basophils (%) (Auto) , Differential Total Cells Counted 100, Neutrophils % (Manual) 82H, Lymphocytes % (Manual) 15L, Monocytes % (Manual) 3, Eosinophils % (Manual) 0, Basophils % ( Manual) 0, Band Neutrophils 0, Platelet Estimate Adequate, Platelet Morphology Normal, Hypochromasia 1+, Anisocytosis 1+ 12/06/16 04:03: White Blood Count 5.0, Red Blood Count 3.13L, Hemoglobin 9.3#L, Hematocrit 27.6# L, Mean Corpuscular Volume 88, Mean Corpuscular Hemoglobin 29.8, Mean Corpuscular Hemoglobin Concent 33.8, Red Cell Distribution Width 14.0, Platelet Count 221, Mean Platelet Volume 5.2L, Neutrophils (%) (Auto) 63.0, Lymphocytes ( %) (Auto) 27.7, Monocytes (%) (Auto) 7.6, Eosinophils (%) (Auto) 1.0, Basophils (%) (Auto) 0.7, Sodium Level 142, Potassium Level 4.0, Chloride Level 105, Carbon Dioxide Level 25, Anion Gap 12, Blood Urea Nitrogen 4L, Creatinine 0.6, Estimat Glomerular Filtration Rate > 60, Glucose Level 114H, Calcium Level 8.1L Current Medications Medications (Trade) Dose Ordered Sig/Betty Route PRN Reason Start Time Stop Time Status Last Admin Dose Admin Acetaminophen (Tylenol) 650 mg Q6H PRN ORAL Mild Pain/Temp > 100.5 12/05/16 14:00 01/04/17 13:59 Dextrose (Dextrose 50%) STAT PRN IV Hypoglycemia 12/05/16 14:00 01/04/17 13:59 Dextrose/ Electrolytes (D5 0.45%NS W/ KCl 20mEq) 1,000 ml @ 75 mls/hr [id number] IV 12/05/16 14:30 01/04/17 14:29 12/06/16 04:14 Hydrocortisone (Hydrocortisone) 1 applic TWICE A DAY TOPIC 12/05/16 18:00 01/04/17 17:59 12/06/16 08:58 Ondansetron HCl (Zofran) 4 mg Q4H PRN IVP Nausea & Vomiting 12/05/16 14:00 01/04/17 13:59 Pantoprazole (Protonix) 40 mg BID ORAL 12/05/16 18:00 01/04/17 17:59 12/06/16 08:58 TREVOR GONSALES Dec 06, 2016 10:59
--- NOTE | 2016-12-06 11:02 | Pulmonolgy Critical Care Note ---
Critical Care - Asmt/Plan Problems: (1) Hemorrhagic shock (2) GIB (gastrointestinal bleeding) (3) PUD (peptic ulcer disease) (4) Symptomatic anemia Respiratory: monitor respiratory rate, adjust FIO2 Cardiac: continue to monitor HR/BP Renal: F/U I&O, keep IV fluid, check electrolytes Gastrointestinal: hold feedings, other - prep for colonoscopy Endocrine: monitor blood sugar, check HgA1C, continue sliding scale insulin Hematologic: monitor H/H, transfuse if hgb<8.5 Neurologic: PRN Ativan, keep patient comfortable Affect: PRN ativan Prophylaxis: Protonix, Heparin Notes Reviewed: renal Discussed with: nurses, consultants, case work aidefitness services manager - Objective Last 24 Hour Vital Signs Date Time Temp Pulse Resp B/P Pulse Ox O2 Delivery O2 Flow Rate FiO2 12/06/16 10:00 78 16 101/49 98 Room Air 12/06/16 09:00 81 16 124/57 99 Room Air 12/06/16 08:00 98.0 82 18 106/48 98 Room Air 12/06/16 08:00 90 12/06/16 07:00 74 13 100/50 95 Room Air 12/06/16 06:00 84 18 121/78 98 Room Air 12/06/16 05:00 98.2 75 15 108/50 96 Room Air 12/06/16 04:00 84 18 121/78 98 Room Air 12/06/16 04:00 84 12/06/16 03:00 73 13 115/52 97 Room Air 12/06/16 02:00 72 12 100/48 97 Room Air 12/06/16 01:00 98.6 76 15 129/65 98 Room Air 12/06/16 00:00 72 12 124/48 97 Room Air 12/06/16 00:00 74 12/05/16 23:00 75 14 108/43 97 Room Air 12/05/16 22:00 80 15 89/52 98 Room Air 12/05/16 21:00 79 19 119/47 99 Room Air 12/05/16 20:00 83 12/05/16 20:00 98.8 82 17 110/43 99 Room Air 12/05/16 19:00 81 17 108/54 100 Room Air 12/05/16 18:00 78 17 107/43 100 Room Air 12/05/16 17:00 80 17 101/43 100 Room Air 12/05/16 16:00 98.0 82 16 104/40 100 Room Air 12/05/16 16:00 76 12/05/16 15:00 85 17 104/38 100 Room Air 12/05/16 14:00 86 17 97/43 98 Room Air 12/05/16 13:30 97.9 89 18 132/71 98 Room Air 12/05/16 12:07 88 12/05/16 11:52 97.9 87 18 91/53 95 Room Air 12/05/16 11:30 70/38 Status: awake Condition: critical HEENT: normocephalic Lungs: clear, chest wall tender Heart: HR/BP stable Abdomen: soft, non-tender Extremities: no C/C/E, edema Decubiti: location Critical Care - Subjective ROS Limited/Unobtainable: No ICU Day: 2, transferred to ICU because of dropping H/H Condition: critical Fluids: d5 1/2 K 20 at 75 cc.hour I&O: Intake and Output 12/05/16 12/06/16 19:00 07:00 Intake Total 965 ml 1116 ml Balance 965 ml 1116 ml Intake Oral 120 ml 0 ml IV Total 595 ml 806 ml Blood Product 250 ml 250 ml Other 60 ml # Voids 1 1 # Bowel Movements 1 CXR: negative Labs: Laboratory Tests Test 12/05/16 12:00 12/06/16 04:03 White Blood Count 5.3 K/UL (4.8-10.8) 5.0 K/UL (4.8-10.8) Red Blood Count 2.34 M/UL (4.20-5.40) L 3.13 M/UL (4.20-5.40) L Hemoglobin 6.7 G/DL (12.0-16.0) *L 9.3 G/DL (12.0-16.0) #L Hematocrit 20.6 % (37.0-47.0) L 27.6 % (37.0-47.0) #L Mean Corpuscular Volume 88 FL (80-99) 88 FL (80-99) Mean Corpuscular Hemoglobin 28.5 PG (27.0-31.0) 29.8 PG (27.0-31.0) Mean Corpuscular Hemoglobin Concent 32.4 G/DL (32.0-36.0) 33.8 G/DL (32.0-36.0) Red Cell Distribution Width 14.3 % (11.6-14.8) 14.0 % (11.6-14.8) Platelet Count 198 K/UL (150-450) 221 K/UL (150-450) Mean Platelet Volume 5.5 FL (6.5-10.1) L 5.2 FL (6.5-10.1) L Neutrophils (%) (Auto) % (45.0-75.0) 63.0 % (45.0-75.0) Lymphocytes (%) (Auto) % (20.0-45.0) 27.7 % (20.0-45.0) Monocytes (%) (Auto) % (1.0-10.0) 7.6 % (1.0-10.0) Eosinophils (%) (Auto) % (0.0-3.0) 1.0 % (0.0-3.0) Basophils (%) (Auto) % (0.0-2.0) 0.7 % (0.0-2.0) Differential Total Cells Counted 100 Neutrophils % (Manual) 82 % (45-75) H Lymphocytes % (Manual) 15 % (20-45) L Monocytes % (Manual) 3 % (1-10) Eosinophils % (Manual) 0 % (0-3) Basophils % (Manual) 0 % (0-2) Band Neutrophils 0 % (0-8) Platelet Estimate Adequate Platelet Morphology Normal Hypochromasia 1+ Anisocytosis 1+ Sodium Level 142 mEQ/L (135-145) Potassium Level 4.0 mEQ/L (3.4-4.9) Chloride Level 105 mEQ/L (98-107) Carbon Dioxide Level 25 mEQ/L (20-30) Anion Gap 12 (5-15) Blood Urea Nitrogen 4 mg/dL (7-23) L Creatinine 0.6 mg/dL (0.5-0.9) Estimat Glomerular Filtration Rate > 60 mL/min (>60) Glucose Level 114 mg/dL (74-106) H Calcium Level 8.1 mg/dL (8.6-10.2) L TREVOR GONSALES Dec 06, 2016 11:02
[2016-12-06] MEDS ORDERED: Propofol 10mg/ml 20ml IV ONE (11:45)
[2016-12-06] MEDS ORDERED: Ketamine 500mg Inj ONE (11:45)
[2016-12-06] MEDS ORDERED: Alfentanil 2ml Inj ONE (11:45)
[2016-12-06] MEDS ORDERED: Lidocaine 1% MPF 10mg/ml 5ml ONE (11:45)
[2016-12-06] MEDS ORDERED: Midazolam 2mg/2ml Inj ONE (11:45)
[2016-12-06] MEDS ORDERED: NS 550ML IV ONE (11:52)
[2016-12-06] MEDS ORDERED: Meperidine 25mg/ml Inj IV PRN (12:00)
[2016-12-06] MEDS ORDERED: Ketorolac 60mg Inj IV PRN (12:00)
[2016-12-06] MEDS ORDERED: LR 1000ml 1,000 ML IVLG SCH (12:00)
[2016-12-06] MEDS ORDERED: Hydromorphone 0.5mg/0.5ml inj IVP PRN (12:00)
[2016-12-06] MEDS ORDERED: Ketorolac 30mg Inj IV PRN (12:00)
[2016-12-06] MEDS ORDERED: Oxycodone/Acetaminophen 5-325 ORAL PRN (12:00)
[2016-12-06] MEDS ORDERED: fentaNYL 100 mcg/2 mL IV PRN (12:00)
[2016-12-06] MEDS ORDERED: Midazolam 2mg/2ml Inj IVP PRN (12:00)
[2016-12-06] MEDS ORDERED: Norco 5mg/325mg tab ORAL PRN (12:00)
[2016-12-06] MEDS ORDERED: LORazepam Inj 2mg/ml 1ml IV PRN (12:00)
[2016-12-06] MEDS ORDERED: Atropine Inj 1mg/10ml Syr IV PRN (12:00)
[2016-12-06] MEDS ORDERED: Labetalol 5mg/ml 20ml vial IV PRN (12:00)
[2016-12-06] MEDS ORDERED: Metoclopramide 10mg/2ml Inj IVP PRN (12:00)
[2016-12-06] MEDS ORDERED: DiphenhydrAMINE 50mg/ml Inj IVP PRN (12:00)
[2016-12-06] MEDS ORDERED: Norco 7.5mg/325mg tab ORAL PRN (12:00)
--- NOTE | 2016-12-06 12:00 | Anethesia Preoperative Eval ---
Anesthesia Pre-op PMH/ROS General Date of Evaluation: Dec 06, 2016 Time of Evaluation: 11:41 Anesthesiologist: Nicole ASA Score: ASA 3 Mallampati Score Class I : Soft palate, uvula, fauces, pillars visible Class II: Soft palate, uvula, fauces visible Class III: Soft palate, base of uvula visible Class IV: Only hard plate visible Mallampati Classification: Class II Surgeon: Saad Diagnosis: Acute GI Bleed Surgical Procedure: EGD Anesthesia History: none Social History: smoking Family History: no anesthesia problems Allergies: Coded Allergies: No Known Allergies (Unverified , 12/04/16) Medications: see eMAR Past Medical History Pulmonary: Reports: COPD - Emphysema Gastrointestinal/Genitourinary: Reports: other - GI Bleed HEENT: Reports: other - Macular Degeneration Hematology/Immune: Reports: anemia Anesthesia Pre-op Phys. Exam Physician Exam Last Vital Signs Date Time Temp Pulse Resp B/P Pulse Ox O2 Delivery O2 Flow Rate FiO2 12/06/16 11:00 77 16 115/53 99 Room Air 12/06/16 08:00 98.0 Constitutional: NAD Neurologic: CN 2-12 intact Cardiovascular: RRR Respiratory: CTA Gastrointestinal: S/NT/ND Airway Exam Mallampati Score: Class II MO: limited ROM: limited Teeth: intact Anesthesia Pre-op A/P Labs Hematology Test 12/05/16 12:00 12/06/16 04:03 White Blood Count 5.3 K/UL (4.8-10.8) 5.0 K/UL (4.8-10.8) Red Blood Count 2.34 M/UL (4.20-5.40) L 3.13 M/UL (4.20-5.40) L Hemoglobin 6.7 G/DL (12.0-16.0) *L 9.3 G/DL (12.0-16.0) #L Hematocrit 20.6 % (37.0-47.0) L 27.6 % (37.0-47.0) #L Mean Corpuscular Volume 88 FL (80-99) 88 FL (80-99) Mean Corpuscular Hemoglobin 28.5 PG (27.0-31.0) 29.8 PG (27.0-31.0) Mean Corpuscular Hemoglobin Concent 32.4 G/DL (32.0-36.0) 33.8 G/DL (32.0-36.0) Red Cell Distribution Width 14.3 % (11.6-14.8) 14.0 % (11.6-14.8) Platelet Count 198 K/UL (150-450) 221 K/UL (150-450) Mean Platelet Volume 5.5 FL (6.5-10.1) L 5.2 FL (6.5-10.1) L Neutrophils (%) (Auto) % (45.0-75.0) 63.0 % (45.0-75.0) Lymphocytes (%) (Auto) % (20.0-45.0) 27.7 % (20.0-45.0) Monocytes (%) (Auto) % (1.0-10.0) 7.6 % (1.0-10.0) Eosinophils (%) (Auto) % (0.0-3.0) 1.0 % (0.0-3.0) Basophils (%) (Auto) % (0.0-2.0) 0.7 % (0.0-2.0) Differential Total Cells Counted 100 Neutrophils % (Manual) 82 % (45-75) H Lymphocytes % (Manual) 15 % (20-45) L Monocytes % (Manual) 3 % (1-10) Eosinophils % (Manual) 0 % (0-3) Basophils % (Manual) 0 % (0-2) Band Neutrophils 0 % (0-8) Platelet Estimate Adequate Platelet Morphology Normal Hypochromasia 1+ Anisocytosis 1+ Chemistry Test 12/06/16 04:03 Sodium Level 142 mEQ/L (135-145) Potassium Level 4.0 mEQ/L (3.4-4.9) Chloride Level 105 mEQ/L (98-107) Carbon Dioxide Level 25 mEQ/L (20-30) Anion Gap 12 (5-15) Blood Urea Nitrogen 4 mg/dL (7-23) L Creatinine 0.6 mg/dL (0.5-0.9) Estimat Glomerular Filtration Rate > 60 mL/min (>60) Glucose Level 114 mg/dL (74-106) H Calcium Level 8.1 mg/dL (8.6-10.2) L Risk Assessment & Plan Assessment: ASA 3 Plan: GA Status Change Before Surgery: Joey Tanner MD Dec 06, 2016 12:00
--- NOTE | 2016-12-06 12:02 | Immediate Post-Op Evaluation ---
Immediate Post-Op Evalulation Immediate Post-Op Evalulation Procedure: EGD Date of Evaluation: Dec 06, 2016 Time of Evaluation: 12:45 IV Fluids: 500 NS Blood Products: 0 Estimated Blood Loss: 1 Urinary Output: 0 Blood Pressure Systolic: 134 Blood Pressure Diastolic: 78 Pulse Rate: 88 Respiratory Rate: 16 O2 Sat by Pulse Oximetry: 99 Temperature (Fahrenheit): 98.6 Pain Score (1-10): 1 Nausea: No Vomiting: No Complications 0 Patient Status: awake, reacts, patent, none Hydration Status: adequate Joey Rivera MD Dec 06, 2016 12:02
--- NOTE | 2016-12-06 12:03 | 48 Hour Post Anesthesia Eval ---
Post Anesthesia Evaluation Procedure: EGD Date of Evaluation: Dec 06, 2016 Time of Evaluation: 14:54 Blood Pressure Systolic: 145 0: 82 Pulse Rate: 89 Respiratory Rate: 18 Temperature (Fahrenheit): 98.6 O2 Sat by Pulse Oximetry: 99 Airway: patent Nausea: No Vomiting: No Pain Intensity: 1 Hydration Status: adequate Cardiopulmonary Status: Stable Mental Status/LOC: patient returned to baseline Follow-up Care/Observations: 0 Post-Anesthesia Complications: 0 Follow-up care needed: N/A Joey Rivera MD Dec 06, 2016 12:03
--- NOTE | 2016-12-06 12:04 | General Progress Note ---
Assessment/Plan Assessment/Plan GI Consult Dictated EGD/Colon in am Thank you Mayte Nash Subjective Allergies: Coded Allergies: No Known Allergies (Unverified , 12/04/16) Objective Last 24 Hour Vital Signs Date Time Temp Pulse Resp B/P Pulse Ox O2 Delivery O2 Flow Rate FiO2 12/06/16 11:00 77 16 115/53 99 Room Air 12/06/16 10:00 78 16 101/49 98 Room Air 12/06/16 09:00 81 16 124/57 99 Room Air 12/06/16 08:00 98.0 82 18 106/48 98 Room Air 12/06/16 08:00 90 12/06/16 07:00 74 13 100/50 95 Room Air 12/06/16 06:00 84 18 121/78 98 Room Air 12/06/16 05:00 98.2 75 15 108/50 96 Room Air 12/06/16 04:00 84 18 121/78 98 Room Air 12/06/16 04:00 84 12/06/16 03:00 73 13 115/52 97 Room Air 12/06/16 02:00 72 12 100/48 97 Room Air 12/06/16 01:00 98.6 76 15 129/65 98 Room Air 12/06/16 00:00 72 12 124/48 97 Room Air 12/06/16 00:00 74 12/05/16 23:00 75 14 108/43 97 Room Air 12/05/16 22:00 80 15 89/52 98 Room Air 12/05/16 21:00 79 19 119/47 99 Room Air 12/05/16 20:00 83 12/05/16 20:00 98.8 82 17 110/43 99 Room Air 12/05/16 19:00 81 17 108/54 100 Room Air 12/05/16 18:00 78 17 107/43 100 Room Air 12/05/16 17:00 80 17 101/43 100 Room Air 12/05/16 16:00 98.0 82 16 104/40 100 Room Air 12/05/16 16:00 76 12/05/16 15:00 85 17 104/38 100 Room Air 12/05/16 14:00 86 17 97/43 98 Room Air 12/05/16 13:30 97.9 89 18 132/71 98 Room Air 12/05/16 12:07 88 Intake and Output 12/05/16 12/06/16 19:00 07:00 Intake Total 965 ml 1116 ml Balance 965 ml 1116 ml Intake Oral 120 ml 0 ml IV Total 595 ml 806 ml Blood Product 250 ml 250 ml Other 60 ml # Voids 1 1 # Bowel Movements 1 Laboratory Tests 12/06/16 04:03: White Blood Count 5.0, Red Blood Count 3.13L, Hemoglobin 9.3#L, Hematocrit 27.6# L, Mean Corpuscular Volume 88, Mean Corpuscular Hemoglobin 29.8, Mean Corpuscular Hemoglobin Concent 33.8, Red Cell Distribution Width 14.0, Platelet Count 221, Mean Platelet Volume 5.2L, Neutrophils (%) (Auto) 63.0, Lymphocytes ( %) (Auto) 27.7, Monocytes (%) (Auto) 7.6, Eosinophils (%) (Auto) 1.0, Basophils (%) (Auto) 0.7, Sodium Level 142, Potassium Level 4.0, Chloride Level 105, Carbon Dioxide Level 25, Anion Gap 12, Blood Urea Nitrogen 4L, Creatinine 0.6, Estimat Glomerular Filtration Rate > 60, Glucose Level 114H, Calcium Level 8.1L Height (Feet): 5 Height (Inches): 6.00 Weight (Pounds): 165 ANTON NASH Dec 06, 2016 12:04
--- NOTE | 2016-12-06 12:04 | Pre-Procedure Note/Attestation ---
Pre-Procedure Note/Attestation Complete Prior to Procedure Planned Procedure: not applicable Procedure Narrative: egd Indications for Procedure Pre-Operative Diagnosis: gib Attestation I attest that I discussed the nature of the procedure; its benefits; risks and complications; and alternatives (and the risks and benefits of such alternatives ), prior to the procedure, with the patient (or the patient's legal patient account representative). I attest that, if there was a reasonable possibility of needing a blood transfusion, the patient (or the patient's legal patient account representative) was given the [facility] standardized written summary, pursuant to the Marcio George Blood Safety Act ([place] Health and Safety Code # 1645, as amended). I attest that I re-evaluated the patient just prior to the surgery and that there has been no change in the patient's H&P, except as documented below: ANTON WYATT Dec 06, 2016 12:04
--- NOTE | 2016-12-06 12:19 | Endoscopy Procedure Note ---
Endoscopy Procedure Note Indication for Procedure: UGIB Procedures Performed: EGD Operative Findings/Diagnosis: old mid body scar, Specimen: yes Pt Tolerated Procedure Well: Yes Estimated Blood Loss: none Anesthesia: MAC Medication Given: see anesthesia record Implant(s) used?: No 50 yrs or older w/o bx or poly: Not Applicable 10yrs. F/U not recommended: Not Applicable If not recommended, why?: ANTON WYATT Dec 06, 2016 12:19
--- NOTE | 2016-12-06 12:21 | Brief Operative Note ---
Immediate Post Operative Note Operative Note Chief Complaint: GIB Pre-op Diagnosis: gib Procedure: EGD Post-op Diagnosis: scar Additional Surgeons: martine Anesthesia: MAC, moderate sedation Specimen: yes Complications: none Estimated Blood Loss: none Drains: none Implant(s) used?: No ANTON WYATT Dec 06, 2016 12:20
[2016-12-06] MEDS ORDERED: Nulytely 4L ORAL ONE (13:00)
--- NOTE | 2016-12-06 17:25 | General Progress Note ---
Assessment/Plan Assessment/Plan Assessment - GIB - anemia - EGD negative except for a scar from an old/healed ulcer Recommendations - GI prep today - Colonoscopy in am Subjective Allergies: Coded Allergies: No Known Allergies (Unverified , 12/04/16) Subjective patient seen in GI lab prior to EGD golytely prep not given by staff psychologist NPO for EGD no abd pain Objective Last 24 Hour Vital Signs Date Time Temp Pulse Resp B/P Pulse Ox O2 Delivery O2 Flow Rate FiO2 12/06/16 17:00 75 20 115/44 100 Room Air 12/06/16 16:00 98.0 87 18 128/58 100 Room Air 12/06/16 16:00 80 12/06/16 15:00 99 20 137/60 100 Room Air 12/06/16 14:00 77 20 135/60 100 Room Air 12/06/16 13:00 97.9 82 16 109/53 99 Room Air 12/06/16 12:28 89 18 99 12/06/16 12:27 88 16 99 12/06/16 12:00 82 12/06/16 11:00 77 16 115/53 99 Room Air 12/06/16 10:00 78 16 101/49 98 Room Air 12/06/16 09:00 81 16 124/57 99 Room Air 12/06/16 08:00 98.0 82 18 106/48 98 Room Air 12/06/16 08:00 90 12/06/16 07:00 74 13 100/50 95 Room Air 12/06/16 06:00 84 18 121/78 98 Room Air 12/06/16 05:00 98.2 75 15 108/50 96 Room Air 12/06/16 04:00 84 18 121/78 98 Room Air 12/06/16 04:00 84 12/06/16 03:00 73 13 115/52 97 Room Air 12/06/16 02:00 72 12 100/48 97 Room Air 12/06/16 01:00 98.6 76 15 129/65 98 Room Air 12/06/16 00:00 72 12 124/48 97 Room Air 12/06/16 00:00 74 12/05/16 23:00 75 14 108/43 97 Room Air 12/05/16 22:00 80 15 89/52 98 Room Air 12/05/16 21:00 79 19 119/47 99 Room Air 12/05/16 20:00 83 12/05/16 20:00 98.8 82 17 110/43 99 Room Air 12/05/16 19:00 81 17 108/54 100 Room Air 12/05/16 18:00 78 17 107/43 100 Room Air Intake and Output 12/05/16 12/06/16 19:00 07:00 Intake Total 965 ml 1116 ml Balance 965 ml 1116 ml Intake Oral 120 ml 0 ml IV Total 595 ml 806 ml Blood Product 250 ml 250 ml Other 60 ml # Voids 1 1 # Bowel Movements 1 Laboratory Tests 12/06/16 04:03: White Blood Count 5.0, Red Blood Count 3.13L, Hemoglobin 9.3#L, Hematocrit 27.6# L, Mean Corpuscular Volume 88, Mean Corpuscular Hemoglobin 29.8, Mean Corpuscular Hemoglobin Concent 33.8, Red Cell Distribution Width 14.0, Platelet Count 221, Mean Platelet Volume 5.2L, Neutrophils (%) (Auto) 63.0, Lymphocytes ( %) (Auto) 27.7, Monocytes (%) (Auto) 7.6, Eosinophils (%) (Auto) 1.0, Basophils (%) (Auto) 0.7, Sodium Level 142, Potassium Level 4.0, Chloride Level 105, Carbon Dioxide Level 25, Anion Gap 12, Blood Urea Nitrogen 4L, Creatinine 0.6, Estimat Glomerular Filtration Rate > 60, Glucose Level 114H, Calcium Level 8.1L Height (Feet): 5 Height (Inches): 6.00 Weight (Pounds): 165 Objective WDWN NCAT supple CTA RRR soft ND NT no edema non focal ANTON WYATT Dec 06, 2016 17:25
--- NOTE | 2016-12-06 17:50 | Internal Med Progress Note ---
Subjective Date of Service: Dec 06, 2016 Physician Name Naeem Yeung Attending Physician Brian Sánchez MD Current Medications Medications (Trade) Dose Ordered Sig/Betty Route PRN Reason Start Time Stop Time Status Last Admin Dose Admin Acetaminophen (Tylenol) 650 mg Q6H PRN ORAL Mild Pain/Temp > 100.5 12/05/16 14:00 01/04/17 13:59 Dextrose (Dextrose 50%) STAT PRN IV Hypoglycemia 12/05/16 14:00 01/04/17 13:59 Dextrose/ Electrolytes (D5 0.45%NS W/ KCl 20mEq) 1,000 ml @ 75 mls/hr [id number] IV 12/05/16 14:30 01/04/17 14:29 12/06/16 17:25 Hydrocortisone (Hydrocortisone) 1 applic TWICE A DAY TOPIC 12/05/16 18:00 01/04/17 17:59 12/06/16 17:25 Ondansetron HCl (Zofran) 4 mg Q4H PRN IVP Nausea & Vomiting 12/05/16 14:00 01/04/17 13:59 Pantoprazole (Protonix) 40 mg BID ORAL 12/05/16 18:00 01/04/17 17:59 12/06/16 17:25 Allergies: Coded Allergies: No Known Allergies (Unverified , 12/04/16) ROS Limited/Unobtainable: No Constitutional: Reports: no symptoms HEENT: Reports: no symptoms Cardiovascular: Reports: no symptoms Respiratory: Reports: no symptoms Gastrointestinal/Abdominal: Reports: rectal bleeding Genitourinary: Reports: no symptoms Neurologic/Psychiatric: Reports: no symptoms Subjective 66 YO F admitted for rectal bleeding. Cover for Int Med-Dr Sánchez. ICU. S/P Endoscopy 12/06/16. Objective Last Vital Signs Date Time Temp Pulse Resp B/P Pulse Ox O2 Delivery O2 Flow Rate FiO2 12/06/16 17:00 75 20 115/44 100 Room Air 12/06/16 16:00 98.0 Laboratory Tests Test 12/06/16 04:03 White Blood Count 5.0 K/UL (4.8-10.8) Red Blood Count 3.13 M/UL (4.20-5.40) L Hemoglobin 9.3 G/DL (12.0-16.0) #L Hematocrit 27.6 % (37.0-47.0) #L Mean Corpuscular Volume 88 FL (80-99) Mean Corpuscular Hemoglobin 29.8 PG (27.0-31.0) Mean Corpuscular Hemoglobin Concent 33.8 G/DL (32.0-36.0) Red Cell Distribution Width 14.0 % (11.6-14.8) Platelet Count 221 K/UL (150-450) Mean Platelet Volume 5.2 FL (6.5-10.1) L Neutrophils (%) (Auto) 63.0 % (45.0-75.0) Lymphocytes (%) (Auto) 27.7 % (20.0-45.0) Monocytes (%) (Auto) 7.6 % (1.0-10.0) Eosinophils (%) (Auto) 1.0 % (0.0-3.0) Basophils (%) (Auto) 0.7 % (0.0-2.0) Sodium Level 142 mEQ/L (135-145) Potassium Level 4.0 mEQ/L (3.4-4.9) Chloride Level 105 mEQ/L (98-107) Carbon Dioxide Level 25 mEQ/L (20-30) Anion Gap 12 (5-15) Blood Urea Nitrogen 4 mg/dL (7-23) L Creatinine 0.6 mg/dL (0.5-0.9) Estimat Glomerular Filtration Rate > 60 mL/min (>60) Glucose Level 114 mg/dL (74-106) H Calcium Level 8.1 mg/dL (8.6-10.2) L Intake and Output 12/05/16 12/06/16 19:00 07:00 Intake Total 965 ml 1116 ml Balance 965 ml 1116 ml Intake Oral 120 ml 0 ml IV Total 595 ml 806 ml Blood Product 250 ml 250 ml Other 60 ml # Voids 1 1 # Bowel Movements 1 Objective General: alert, cooperative, no distress, appears stated age Head: normocephalic, without obvious abnormality, atraumatic Eyes: conjunctivae/corneas clear. PERRL, EOM's intact Throat: lips, mucosa, and tongue normal. MMM Neck: supple, symmetrical, trachea midline, and no JVD Lungs: clear to auscultation bilaterally Heart: regular rate and rhythm, S1, S2 normal, no murmur, click, rub or gallop Abdomen: soft, non-tender, non-distended, bowel sounds normal; no masses or organomegaly Extremities: extremities normal, atraumatic, no cyanosis or edema Pulses: 2+ and symmetric Skin: skin color, texture, turgor normal; no rashes or lesions Neurologic: grossly normal, no focal deficits Assessment/Plan Problem List: (1) Hematochezia (2) Severe anemia Assessment & Plan: S/P 3 units PRBC total transfusion. S/P endoscopy Mon . Colonoscopy not performed due to Poor prep. See GI note (3) GIB (gastrointestinal bleeding) Assessment & Plan: see GI note. S/P transfusion 1 unit packed red blood cells today (3 total). Endoscopy and colonoscopy Tue12/06/16. (4) PUD (peptic ulcer disease) Assessment & Plan: Cont protonix. Status: not improved NAEEM YEUNG Dec 06, 2016 17:50
--- NOTE | 2016-12-06 21:18 | Operative Note - Dictated ---
GASTROENTEROLOGY PROCEDURE REPORT: DATE OF PROCEDURE: 12/06/2016 PROCEDURE: Upper gastroendoscopy with biopsy. SURGEON: Gertrudis Nash M.D. ANESTHESIA: Please see the separate anesthesiologist's notes for details. PRE-ENDOSCOPIC DIAGNOSIS: Gastrointestinal bleeding. POST-ENDOSCOPIC DIAGNOSES: 1. Scar like deformity in the mid body of the stomach consistent with an old healed ulcer in that location status post biopsy. 2. Otherwise normal endoscopy. PROCEDURE: The procedure, its risks, indications, alternatives, and possible complications were explained to the patient. Informed consent was obtained. The patient was then sedated. A diagnostic upper endoscope was introduced through the oropharynx and advanced to the duodenum without difficulty. The endoscope was then gradually withdrawn. The mucosa examined carefully. Examination of the upper gastric mucosa was notable for a bowel abnormalities. The endoscope was removed. biopsy was obtained and the patient was sent to recovery in good condition. COMPLICATIONS: None. RECOMMENDATIONS: 1. Continue clear liquid diet. 2. Gastrointestinal tract preparation. 3. Colonoscopy tomorrow. Gertrudis Nash M.D. DR: Annalise JOB#: [id number] CC:
[2016-12-07] VITALS (13 sets, daily range): BP systolic 92–123; BP diastolic 40–71
[2016-12-07 05:19] LABS: MEAN CORPUSCULAR HEMOGLOBIN 29.9 PG (27.0-31.0); MEAN CORPUSCULAR HGB CONC 33.1 G/DL (32.0-36.0); MEAN CORPUSCULAR VOLUME 90 FL (80-99); MEAN PLATELET VOLUME 5.8 FL (6.5-10.1); PLATELET COUNT 212 K/UL (150-450); RED BLOOD COUNT 2.58 M/UL (4.20-5.40); RED CELL DISTRIBUTION WIDTH 15.1 % (11.6-14.8); WHITE BLOOD COUNT 5.2 K/UL (4.8-10.8)
[2016-12-07 05:28] LABS: PROTHROMBIN TIME 10.6 SEC (9.30-11.50)
[2016-12-07 05:43] LABS: ALANINE AMINOTRANSFERASE 21 U/L (3-33); ALBUMIN/GLOBULIN RATIO 1.5 (1.0-2.7); ANION GAP 10 (5-15); ASPARTATE AMINO TRANSFERASE 18 U/L (5-40); CALCIUM 7.8 mg/dL (8.6-10.2); CARBON DIOXIDE 25 mEQ/L (20-30); CHLORIDE 109 mEQ/L (98-107); CREATININE 0.5 mg/dL (0.5-0.9); GLOMERULAR FILTRATION RATE > 60 mL/min (>60); HEMOLYSIS 4; MAGNESIUM 1.7 mg/dL (1.7-2.5); PHOSPHORUS 3.3 mg/dL (2.5-4.8); POTASSIUM 3.7 mEQ/L (3.4-4.9); SODIUM 144 mEQ/L (135-145); TOTAL PROTEIN 4.3 g/dL (6.6-8.7)
[2016-12-07] MEDS: D5 1/2NS w/KCl 20mEq 1,000 ML IV SCH ×2 (06:11→18:50)
[2016-12-07] MEDS ORDERED: NS 550ML IV ONE (06:52)
[2016-12-07] MEDS ORDERED: Propofol 10mg/ml 20ml IV ONE (07:00)
[2016-12-07] MEDS ORDERED: NS 110ml ONE (07:00)
[2016-12-07] MEDS ORDERED: Midazolam 2mg/2ml Inj ONE (07:00)
--- NOTE | 2016-12-07 07:19 | Anethesia Preoperative Eval ---
Anesthesia Pre-op PMH/ROS General Date of Evaluation: Dec 07, 2016 Time of Evaluation: 06:52 Anesthesiologist: Maria Elena ASA Score: ASA 2 Mallampati Score Class I : Soft palate, uvula, fauces, pillars visible Class II: Soft palate, uvula, fauces visible Class III: Soft palate, base of uvula visible Class IV: Only hard plate visible Mallampati Classification: Class II Surgeon: Bon Diagnosis: GI bleed Surgical Procedure: Colonoscopy Anesthesia History: none Social History: smoking - h/o Allergies: Coded Allergies: No Known Allergies (Unverified , 12/04/16) Medications: see eMAR Past Medical History Cardiovascular: Reports: HTN - borderline, Denies: CAD, [place], arrhythmia, other, valve dz Pulmonary: Denies: COPD, CATY, asthma, other Gastrointestinal/Genitourinary: Reports: GERD, Denies: CRI, ESRD, other Neurologic/Psychiatric: Denies: CVA, TIA, dementia, depression/anxiety, other Endocrine: Denies: DM, hypothyroidism, other, steroids HEENT: Denies: ALTURAS (L), ALTURAS (R), cataract (L), cataract (R), glaucoma, other Hematology/Immune: Reports: anemia, Denies: DVT, bleeding disorder, other Musculoskeletal/Integumentary: Reports: DJD, Denies: DDD, OA, RA, edema, other PMH Narrative: as above PSxH Narrative: upper GI Anesthesia Pre-op Phys. Exam Physician Exam Last Vital Signs Date Time Temp Pulse Resp B/P Pulse Ox O2 Delivery O2 Flow Rate FiO2 12/07/16 04:00 98.0 108 18 112/48 100 Room Air Constitutional: NAD Neurologic: CN 2-12 intact Cardiovascular: RRR, no M/R/G Respiratory: CTA Gastrointestinal: S/NT/ND Airway Exam Mallampati Score: Class II MO: limited Neck: stiff ROM: limited Teeth: missing Dentures: lower, upper Anesthesia Pre-op A/P Labs Hematology Test 12/07/16 03:44 White Blood Count 5.2 K/UL (4.8-10.8) Red Blood Count 2.58 M/UL (4.20-5.40) L Hemoglobin 7.7 G/DL (12.0-16.0) L Hematocrit 23.3 % (37.0-47.0) L Mean Corpuscular Volume 90 FL (80-99) Mean Corpuscular Hemoglobin 29.9 PG (27.0-31.0) Mean Corpuscular Hemoglobin Concent 33.1 G/DL (32.0-36.0) Red Cell Distribution Width 15.1 % (11.6-14.8) H Platelet Count 212 K/UL (150-450) Mean Platelet Volume 5.8 FL (6.5-10.1) L Neutrophils (%) (Auto) % (45.0-75.0) Lymphocytes (%) (Auto) % (20.0-45.0) Monocytes (%) (Auto) % (1.0-10.0) Eosinophils (%) (Auto) % (0.0-3.0) Basophils (%) (Auto) % (0.0-2.0) Neutrophils % (Manual) Pending Lymphocytes % (Manual) Pending Platelet Estimate Pending Platelet Morphology Pending Coagulation Test 12/07/16 03:44 Prothrombin Time 10.6 SEC (9.30-11.50) Prothromb Time International Ratio 1.0 (0.9-1.1) Activated Partial Thromboplast Time 24 SEC (23-33) Chemistry Test 12/07/16 03:44 Sodium Level 144 mEQ/L (135-145) Potassium Level 3.7 mEQ/L (3.4-4.9) Chloride Level 109 mEQ/L (98-107) H Carbon Dioxide Level 25 mEQ/L (20-30) Anion Gap 10 (5-15) Blood Urea Nitrogen 3 mg/dL (7-23) L Creatinine 0.5 mg/dL (0.5-0.9) Estimat Glomerular Filtration Rate > 60 mL/min (>60) Glucose Level 117 mg/dL (74-106) H Calcium Level 7.8 mg/dL (8.6-10.2) L Phosphorus Level 3.3 mg/dL (2.5-4.8) Magnesium Level 1.7 mg/dL (1.7-2.5) Total Bilirubin 0.3 mg/dL (0.0-1.2) Aspartate Amino Transf (AST/SGOT) 18 U/L (5-40) Alanine Aminotransferase (ALT/SGPT) 21 U/L (3-33) Alkaline Phosphatase 34 U/L (35-104) L Total Protein 4.3 g/dL (6.6-8.7) L Albumin 2.6 g/dL (3.5-5.2) L Globulin 1.7 g/dL Albumin/Globulin Ratio 1.5 (1.0-2.7) Studies Pre-op Studies: EKG - NR Risk Assessment & Plan Assessment: ASA 2 Plan: MAC Status Change Before Surgery: No Pre-Antibiotics Drug: none IVANA CARCAMO M.D. Dec 07, 2016 07:19
[2016-12-07] MEDS ORDERED: DiphenhydrAMINE 50mg/ml Inj IVP PRN (07:30)
[2016-12-07] MEDS ORDERED: fentaNYL 100 mcg/2 mL IV PRN (07:30)
--- NOTE | 2016-12-07 07:47 | Pre-Procedure Note/Attestation ---
Pre-Procedure Note/Attestation Complete Prior to Procedure Planned Procedure: not applicable Procedure Narrative: colonoscopy Indications for Procedure Pre-Operative Diagnosis: gib Attestation I attest that I discussed the nature of the procedure; its benefits; risks and complications; and alternatives (and the risks and benefits of such alternatives ), prior to the procedure, with the patient (or the patient's legal small business representative). I attest that, if there was a reasonable possibility of needing a blood transfusion, the patient (or the patient's legal small business representative) was given the [facility] standardized written summary, pursuant to the Marcio George Blood Safety Act ([place] Health and Safety Code # 1645, as amended). I attest that I re-evaluated the patient just prior to the surgery and that there has been no change in the patient's H&P, except as documented below: ANTON WYATT Dec 07, 2016 07:47
--- NOTE | 2016-12-07 07:51 | Brief Operative Note ---
Immediate Post Operative Note Operative Note Chief Complaint: GIB Pre-op Diagnosis: gib Procedure: Colon Post-op Diagnosis: scar Post-op Diagnosis: same as pre-op plus Surgeon: martine Anesthesiologist: see report Anesthesia: MAC Specimen: yes Condition: stable Estimated Blood Loss: none Drains: none Implant(s) used?: No ANTON WYATT Dec 07, 2016 07:51
--- NOTE | 2016-12-07 07:51 | Endoscopy Procedure Note ---
Endoscopy Procedure Note Indication for Procedure: GIB Procedures Performed: colonoscopy Operative Findings/Diagnosis: fresh blood entire colon , no TI blood, pancol tics , 8 mm polyp @ 20 in si Specimen: none Pt Tolerated Procedure Well: Yes Estimated Blood Loss: none Anesthesia: MAC Medication Given: see anesthesia record 50 yrs or older w/o bx or poly: Not Applicable 10yrs. F/U not recommended: Not Applicable If not recommended, why?: ANTON WYATT Dec 07, 2016 07:51
--- NOTE | 2016-12-07 07:57 | General Progress Note ---
Assessment/Plan Assessment/Plan Assessment - Lower GIB - likely diverticular, location unknown - anemia - EGD negative except for a scar from an old/healed ulcer - Colon - extensive diverticulosis and pedunculated polyp Recommendations - clear liquids - monitor CBC - bleeding scan - consider surgical opinion Subjective Allergies: Coded Allergies: No Known Allergies (Unverified , 12/04/16) Subjective patient seen in GI lab prior to colonoscopy (+) red blood clots per rectum overnight Colonoscopy this am: - extensive diverticulosis, L>R colon - one 8 mm pedunculated polyp seen in sigmoid at 20 - not removed due to active GI Bleed - mild internal hemorrhoids - likely diverticular bleeding, but site not clear Objective Last 24 Hour Vital Signs Date Time Temp Pulse Resp B/P Pulse Ox O2 Delivery O2 Flow Rate FiO2 12/07/16 04:00 98.0 108 18 112/48 100 Room Air 12/07/16 04:00 101 12/07/16 03:00 72 18 96/40 100 Room Air 12/07/16 02:00 81 18 105/42 100 Room Air 12/07/16 01:00 89 18 114/62 100 Room Air 12/07/16 00:00 111 12/07/16 00:00 98.0 111 18 98/45 100 Room Air 12/06/16 23:00 89 18 99/47 100 Room Air 12/06/16 22:00 82 18 100/40 100 Room Air 12/06/16 21:00 81 18 118/59 100 Room Air 12/06/16 20:00 98.3 85 18 124/58 100 Room Air 12/06/16 20:00 81 12/06/16 19:00 72 18 136/58 100 Room Air 12/06/16 18:00 94 20 134/73 100 Room Air 12/06/16 17:00 75 20 115/44 100 Room Air 12/06/16 16:00 98.0 87 18 128/58 100 Room Air 12/06/16 16:00 80 12/06/16 15:00 99 20 137/60 100 Room Air 12/06/16 14:00 77 20 135/60 100 Room Air 12/06/16 13:00 97.9 82 16 109/53 99 Room Air 12/06/16 12:28 89 18 99 12/06/16 12:27 88 16 99 12/06/16 12:00 82 12/06/16 11:00 77 16 115/53 99 Room Air 12/06/16 10:00 78 16 101/49 98 Room Air 12/06/16 09:00 81 16 124/57 99 Room Air 12/06/16 08:00 98.0 82 18 106/48 98 Room Air 12/06/16 08:00 90 Intake and Output 12/06/16 12/07/16 19:00 07:00 Intake Total 3030 ml 675 ml Balance 3030 ml 675 ml Intake Oral 0 ml 0 ml IV Total 900 ml 675 ml Other 2130 ml # Voids 10 7 # Bowel Movements 3 10 Laboratory Tests 12/07/16 03:44: White Blood Count 5.2, Red Blood Count 2.58L, Hemoglobin 7.7L, Hematocrit 23.3L , Mean Corpuscular Volume 90, Mean Corpuscular Hemoglobin 29.9, Mean Corpuscular Hemoglobin Concent 33.1, Red Cell Distribution Width 15.1H, Platelet Count 212, Mean Platelet Volume 5.8L, Neutrophils (%) (Auto) , Lymphocytes (%) (Auto) , Monocytes (%) (Auto) , Eosinophils (%) (Auto) , Basophils (%) (Auto) , Neutrophils % (Manual) [Pending], Lymphocytes % (Manual) [Pending], Platelet Estimate [Pending], Platelet Morphology [Pending], Prothrombin Time 10.6, Prothromb Time International Ratio 1.0, Activated Partial Thromboplast Time 24, Sodium Level 144, Potassium Level 3.7, Chloride Level 109H, Carbon Dioxide Level 25, Anion Gap 10, Blood Urea Nitrogen 3L, Creatinine 0.5, Estimat Glomerular Filtration Rate > 60, Glucose Level 117H, Calcium Level 7.8L, Phosphorus Level 3.3, Magnesium Level 1.7, Total Bilirubin 0.3, Aspartate Amino Transf (AST/SGOT) 18, Alanine Aminotransferase (ALT/SGPT) 21, Alkaline Phosphatase 34L, Total Protein 4.3L, Albumin 2.6L, Globulin 1.7, Albumin/Globulin Ratio 1.5 Height (Feet): 5 Height (Inches): 5.00 Weight (Pounds): 165 Objective WDWN NCAT supple CTA RRR soft ND NT no edema non focal ANTON WYATT Dec 07, 2016 07:57
[2016-12-07 08:04] LABS: BAND NEUTROPHILS % (MANUAL) 3 % (0-8); BASOPHILS % (MANUAL) 1 % (0-2); EOSINOPHILS % (MANUAL) 1 % (0-3); LYMPHOCYTES % (MANUAL) 26 % (20-45); NEUTROPHILS % (MANUAL) 62 % (45-75); TOTAL CELLS COUNTED 100
[2016-12-07 08:06] LABS: PLATELET ESTIMATE ADEQUATE; PLATELET MORPHOLOGY NORMAL
[2016-12-07 08:08] LABS: ANISOCYTOSIS 1+; POLYCHROMASIA 1+
[2016-12-07] MEDS ORDERED: Heplock Flush 100 units/ml 3 ml syr IV ONE (08:30)
--- NOTE | 2016-12-07 08:30 | Immediate Post-Op Evaluation ---
Immediate Post-Op Evalulation Immediate Post-Op Evalulation Procedure: Colonoscopy Date of Evaluation: Dec 07, 2016 Time of Evaluation: 07:48 IV Fluids: 300 Blood Products: none Estimated Blood Loss: none Urinary Output: none Blood Pressure Systolic: 104 Blood Pressure Diastolic: 58 Pulse Rate: 72 Respiratory Rate: 20 O2 Sat by Pulse Oximetry: 98 Temperature (Fahrenheit): 97.4 Pain Score (1-10): 1 Nausea: No Vomiting: No Complications none Patient Status: awake, patent, none Hydration Status: adequate IVANA CARCAMO M.D. Dec 07, 2016 08:29
--- NOTE | 2016-12-07 08:31 | 48 Hour Post Anesthesia Eval ---
Post Anesthesia Evaluation Procedure: Colonoscopy Date of Evaluation: Dec 07, 2016 Time of Evaluation: 08:30 Blood Pressure Systolic: 116 0: 61 Pulse Rate: 74 Respiratory Rate: 18 Temperature (Fahrenheit): 97.2 O2 Sat by Pulse Oximetry: 98 Airway: patent Nausea: No Vomiting: No Pain Intensity: 1 Hydration Status: adequate Cardiopulmonary Status: stable Mental Status/LOC: patient returned to baseline Follow-up Care/Observations: n/a Post-Anesthesia Complications: none Follow-up care needed: N/A IVANA CARCAMO M.D. Dec 07, 2016 08:31
[2016-12-07] MEDS: Hydrocortisone 1% Cr 15gm TOPIC SCH ×2 (08:51→18:00)
[2016-12-07] MEDS ORDERED: NS 275ml ONE ×2 (15:36→16:11)
[2016-12-07] MEDS ORDERED: Tubing IV Blood Pump IV ONE (15:36)
--- NOTE | 2016-12-07 15:44 | Internal Med Progress Note ---
Subjective Date of Service: Dec 07, 2016 Physician Name Naeem Yeung Attending Physician Brian Sánchez MD Current Medications Medications (Trade) Dose Ordered Sig/Betty Route PRN Reason Start Time Stop Time Status Last Admin Dose Admin Acetaminophen (Tylenol) 650 mg Q6H PRN ORAL Mild Pain/Temp > 100.5 12/07/16 08:00 01/06/17 07:59 Dextrose (Dextrose 50%) STAT PRN IV Hypoglycemia 12/07/16 14:00 01/06/17 13:59 Dextrose/ Electrolytes (D5 0.45%NS W/ KCl 20mEq) 1,000 ml @ 75 mls/hr [id number] IV 12/07/16 04:45 01/06/17 04:44 12/07/16 06:11 Hydrocortisone (Hydrocortisone) 1 applic TWICE A DAY TOPIC 12/07/16 09:00 01/06/17 08:59 12/07/16 08:51 Ondansetron HCl (Zofran) 4 mg Q4H PRN IVP Nausea & Vomiting 12/07/16 06:00 01/06/17 05:59 Pantoprazole (Protonix) 40 mg BIAC ORAL 12/07/16 06:30 01/06/17 06:29 12/07/16 05:32 Allergies: Coded Allergies: No Known Allergies (Unverified , 12/04/16) ROS Limited/Unobtainable: No Constitutional: Reports: no symptoms HEENT: Reports: no symptoms Cardiovascular: Reports: no symptoms Respiratory: Reports: no symptoms Gastrointestinal/Abdominal: Reports: rectal bleeding Genitourinary: Reports: no symptoms Neurologic/Psychiatric: Reports: no symptoms Subjective 66 YO F admitted for rectal bleeding. Cover for [facility] Med-Dr Sánchez. Telemetry. S/P Endoscopy 12/06/16. S/P colonoscopy on 12/07/16. Objective Last Vital Signs Date Time Temp Pulse Resp B/P Pulse Ox O2 Delivery O2 Flow Rate FiO2 12/07/16 11:50 97.7 73 18 105/71 98 Room Air 12/07/16 08:09 3.0 Laboratory Tests Test 12/07/16 03:44 White Blood Count 5.2 K/UL (4.8-10.8) Red Blood Count 2.58 M/UL (4.20-5.40) L Hemoglobin 7.7 G/DL (12.0-16.0) L Hematocrit 23.3 % (37.0-47.0) L Mean Corpuscular Volume 90 FL (80-99) Mean Corpuscular Hemoglobin 29.9 PG (27.0-31.0) Mean Corpuscular Hemoglobin Concent 33.1 G/DL (32.0-36.0) Red Cell Distribution Width 15.1 % (11.6-14.8) H Platelet Count 212 K/UL (150-450) Mean Platelet Volume 5.8 FL (6.5-10.1) L Neutrophils (%) (Auto) % (45.0-75.0) Lymphocytes (%) (Auto) % (20.0-45.0) Monocytes (%) (Auto) % (1.0-10.0) Eosinophils (%) (Auto) % (0.0-3.0) Basophils (%) (Auto) % (0.0-2.0) Differential Total Cells Counted 100 Neutrophils % (Manual) 62 % (45-75) Lymphocytes % (Manual) 26 % (20-45) Monocytes % (Manual) 7 % (1-10) Eosinophils % (Manual) 1 % (0-3) Basophils % (Manual) 1 % (0-2) Band Neutrophils 3 % (0-8) Platelet Estimate Adequate Platelet Morphology Normal Polychromasia 1+ Anisocytosis 1+ Prothrombin Time 10.6 SEC (9.30-11.50) Prothromb Time International Ratio 1.0 (0.9-1.1) Activated Partial Thromboplast Time 24 SEC (23-33) Sodium Level 144 mEQ/L (135-145) Potassium Level 3.7 mEQ/L (3.4-4.9) Chloride Level 109 mEQ/L (98-107) H Carbon Dioxide Level 25 mEQ/L (20-30) Anion Gap 10 (5-15) Blood Urea Nitrogen 3 mg/dL (7-23) L Creatinine 0.5 mg/dL (0.5-0.9) Estimat Glomerular Filtration Rate > 60 mL/min (>60) Glucose Level 117 mg/dL (74-106) H Calcium Level 7.8 mg/dL (8.6-10.2) L Phosphorus Level 3.3 mg/dL (2.5-4.8) Magnesium Level 1.7 mg/dL (1.7-2.5) Total Bilirubin 0.3 mg/dL (0.0-1.2) Aspartate Amino Transf (AST/SGOT) 18 U/L (5-40) Alanine Aminotransferase (ALT/SGPT) 21 U/L (3-33) Alkaline Phosphatase 34 U/L (35-104) L Total Protein 4.3 g/dL (6.6-8.7) L Albumin 2.6 g/dL (3.5-5.2) L Globulin 1.7 g/dL Albumin/Globulin Ratio 1.5 (1.0-2.7) Intake and Output 12/06/16 12/07/16 19:00 07:00 Intake Total 3030 ml 675 ml Balance 3030 ml 675 ml Intake Oral 0 ml 0 ml IV Total 900 ml 675 ml Other 2130 ml # Voids 10 7 # Bowel Movements 3 10 Objective General: alert, cooperative, no distress, appears stated age Head: normocephalic, without obvious abnormality, atraumatic Eyes: conjunctivae/corneas clear. PERRL, EOM's intact Throat: lips, mucosa, and tongue normal. MMM Neck: supple, symmetrical, trachea midline, and no JVD Lungs: clear to auscultation bilaterally Heart: regular rate and rhythm, S1, S2 normal, no murmur, click, rub or gallop Abdomen: soft, non-tender, non-distended, bowel sounds normal; no masses or organomegaly Extremities: extremities normal, atraumatic, no cyanosis or edema Pulses: 2+ and symmetric Skin: skin color, texture, turgor normal; no rashes or lesions Neurologic: grossly normal, no focal deficits Assessment/Plan Problem List: (1) Hematochezia (2) Severe anemia Assessment & Plan: S/P 4 units PRBC total transfusion. S/P endoscopy Mon . S/P Colonoscopy 12/07/16. See GI note (3) GIB (gastrointestinal bleeding) Assessment & Plan: see GI note. S/P transfusion 1 unit packed red blood cells today (3 total). Endoscopy and colonoscopy 12/06/16. (4) PUD (peptic ulcer disease) Assessment & Plan: Cont protonix. Status: not improved NAEEM YEUNG Dec 07, 2016 15:44
--- NOTE | 2016-12-07 16:26 | Diagnostic Imaging Report ---
Indication: GI bleeding, dark blood clots in stool Technique: Red blood cells labeled with 25.2 mCi technetium UltraTag. Imaging over the abdomen for one hour Comparison: None Findings: Normal blood pool activity is demonstrated. No abnormal tracer accumulation to suggest active GI bleed demonstrated. There is excretion of a small amount of free pertechnetate through the kidneys into the bladder demonstrated. Impression: Negative for evidence of active GI bleed
[2016-12-07 21:48] LABS: RED BLOOD COUNT 2.87 M/UL (4.20-5.40)
[2016-12-07 21:49] LABS: BASOPHILS % (AUTO) 0.8 % (0.0-2.0); EOSINOPHILS % (AUTO) 1.4 % (0.0-3.0); LYMPHOCYTES % (AUTO) 21.8 % (20.0-45.0); MEAN CORPUSCULAR HGB CONC 34.6 G/DL (32.0-36.0); MEAN CORPUSCULAR VOLUME 90 FL (80-99); MEAN PLATELET VOLUME 5.1 FL (6.5-10.1); MONOCYTES % (AUTO) 8.5 % (1.0-10.0); NEUTROPHILS % (AUTO) 67.6 % (45.0-75.0); PLATELET COUNT 201 K/UL (150-450); RED CELL DISTRIBUTION WIDTH 13.9 % (11.6-14.8)
--- NOTE | 2016-12-07 22:23 | Pulmonology Progress Note ---
Assessment/Plan Problems: (1) Symptomatic anemia (2) GIB (gastrointestinal bleeding) (3) PUD (peptic ulcer disease) (4) Ex-smoker Assessment/Plan tolerating diet now h/h stable IV fluids check h/h H2 reyna symptomatic treatment dc planning Subjective ROS Limited/Unobtainable: No Interval Events: h/h stable Allergies: Coded Allergies: No Known Allergies (Unverified , 12/04/16) Objective Last 24 Hour Vital Signs Date Time Temp Pulse Resp B/P Pulse Ox O2 Delivery O2 Flow Rate FiO2 12/07/16 20:00 101 12/07/16 20:00 98.1 99 20 93/58 96 Room Air 12/07/16 16:00 87 12/07/16 15:54 97.0 88 18 123/60 97 Room Air 12/07/16 12:00 73 12/07/16 11:50 97.7 73 18 105/71 98 Room Air 12/07/16 08:31 74 18 98 12/07/16 08:30 97.0 82 18 105/61 96 Room Air 12/07/16 08:29 72 20 98 12/07/16 08:09 97.9 77 15 105/53 100 Nasal Cannula 3.0 12/07/16 08:00 88 12/07/16 07:54 82 13 104/53 100 Nasal Cannula 3.0 12/07/16 07:49 82 19 95/51 100 Nasal Cannula 3.0 12/07/16 07:44 97.7 86 31 92/51 100 Nasal Cannula 3.0 12/07/16 04:00 98.0 108 18 112/48 100 Room Air 12/07/16 04:00 101 12/07/16 03:00 72 18 96/40 100 Room Air 12/07/16 02:00 81 18 105/42 100 Room Air 12/07/16 01:00 89 18 114/62 100 Room Air 12/07/16 00:00 111 12/07/16 00:00 98.0 111 18 98/45 100 Room Air 12/06/16 23:00 89 18 99/47 100 Room Air Intake and Output 12/06/16 12/07/16 19:00 07:00 Intake Total 3030 ml 675 ml Balance 3030 ml 675 ml Intake Oral 0 ml 0 ml IV Total 900 ml 675 ml Other 2130 ml # Voids 10 7 # Bowel Movements 3 10 Objective General Appearance: cachetic HEENT: normocephalic, atraumatic Neck: non-tender, normal alignment Respiratory/Chest: chest wall non-tender, lungs clear Cardiovascular/Chest: normal peripheral pulses, normal rate Abdomen: normal bowel sounds, non tender Extremities: normal range of motion, non-tender Skin Exam: normal pigmentation, cyanotic Laboratory Tests 12/07/16 03:44: White Blood Count 5.2, Red Blood Count 2.58L, Hemoglobin 7.7L, Hematocrit 23.3L , Mean Corpuscular Volume 90, Mean Corpuscular Hemoglobin 29.9, Mean Corpuscular Hemoglobin Concent 33.1, Red Cell Distribution Width 15.1H, Platelet Count 212, Mean Platelet Volume 5.8L, Neutrophils (%) (Auto) , Lymphocytes (%) (Auto) , Monocytes (%) (Auto) , Eosinophils (%) (Auto) , Basophils (%) (Auto) , Differential Total Cells Counted 100, Neutrophils % ( Manual) 62, Lymphocytes % (Manual) 26, Monocytes % (Manual) 7, Eosinophils % ( Manual) 1, Basophils % (Manual) 1, Band Neutrophils 3, Platelet Estimate Adequate, Platelet Morphology Normal, Polychromasia 1+, Anisocytosis 1+, Prothrombin Time 10.6, Prothromb Time International Ratio 1.0, Activated Partial Thromboplast Time 24, Sodium Level 144, Potassium Level 3.7, Chloride Level 109H, Carbon Dioxide Level 25, Anion Gap 10, Blood Urea Nitrogen 3L, Creatinine 0.5, Estimat Glomerular Filtration Rate > 60, Glucose Level 117H, Calcium Level 7.8L, Phosphorus Level 3.3, Magnesium Level 1.7, Total Bilirubin 0.3, Aspartate Amino Transf (AST/SGOT) 18, Alanine Aminotransferase (ALT/SGPT) 21, Alkaline Phosphatase 34L, Total Protein 4.3L, Albumin 2.6L, Globulin 1.7, Albumin/Globulin Ratio 1.5 12/07/16 21:40: White Blood Count 6.0, Red Blood Count 2.87L, Hemoglobin 8.9L, Hematocrit 25.7L , Mean Corpuscular Volume 90, Mean Corpuscular Hemoglobin 31.0, Mean Corpuscular Hemoglobin Concent 34.6, Red Cell Distribution Width 13.9, Platelet Count 201, Mean Platelet Volume 5.1L, Neutrophils (%) (Auto) 67.6, Lymphocytes ( %) (Auto) 21.8, Monocytes (%) (Auto) 8.5, Eosinophils (%) (Auto) 1.4, Basophils (%) (Auto) 0.8 Current Medications Medications (Trade) Dose Ordered Sig/Betty Route PRN Reason Start Time Stop Time Status Last Admin Dose Admin Acetaminophen (Tylenol) 650 mg Q6H PRN ORAL Mild Pain/Temp > 100.5 12/07/16 08:00 01/06/17 07:59 Dextrose (Dextrose 50%) STAT PRN IV Hypoglycemia 12/07/16 14:00 01/06/17 13:59 Dextrose/ Electrolytes (D5 0.45%NS W/ KCl 20mEq) 1,000 ml @ 75 mls/hr [id number] IV 12/07/16 04:45 01/06/17 04:44 12/07/16 06:11 Hydrocortisone (Hydrocortisone) 1 applic TWICE A DAY TOPIC 12/07/16 09:00 01/06/17 08:59 12/07/16 18:00 Ondansetron HCl (Zofran) 4 mg Q4H PRN IVP Nausea & Vomiting 12/07/16 06:00 01/06/17 05:59 Pantoprazole (Protonix) 40 mg BIAC ORAL 12/07/16 06:30 01/06/17 06:29 12/07/16 16:30 TREVOR GONSALES Dec 07, 2016 22:23
[2016-12-08] VITALS (7 sets, daily range): BP systolic 104–130; BP diastolic 53–75
--- NOTE | 2016-12-08 03:58 | Procedure Note ---
DATE OF PROCEDURE: 12/07/2016 PROCEDURE: Colonoscopy. SURGEON: Gertrudis Nash M.D. ANESTHESIA: See the separate anesthesiologist notes. PRE-ENDOSCOPIC DIAGNOSES: Gastrointestinal bleeding. POST-ENDOSCOPIC DIAGNOSES: 1. Fresh red blood seen throughout the stomach and rectum all the way to the cecum. 2. Terminal ileum had no blood in it. Therefore, suggesting colonic source. 3. Mild to moderate scattered diverticulosis throughout the entire colon including the right colon. 4. gastrointestinal bleeding could not be identified. 5. A 7-8 millimeter pedunculated polyps seen in the sigmoid colon , which was not removed. The patient bleeding. PROCEDURE: The procedure, its risks, indications, alternatives, and possible complications including, but not limited to, bleeding, infection, perforation, , and anesthesia complications were explained the patient and informed consent was obtained. The patient was then sedated in left lateral decubitus position. A rectal exam was done. The colonoscope was then introduced in the rectum and advanced to the terminal ileum. The colonoscope was then gradually withdrawn and the mucosa examined carefully. Findings on examination as listed above. Retroflexed view of the rectum was unremarkable. The colonoscope was removed. The patient was sent to recovery in good condition. COMPLICATIONS: None. RECOMMENDATIONS: 1. bleeding. 2. Repeat colonoscopy in a month or two as an outpatient to remove the polyp, which was not removed during this examination. 3. Serial CBC. 4. Transfuse . Gertrudis Nash M.D. DR: BRIANA JOB#: [id number] CC:
[2016-12-08 07:23] LABS: ANION GAP 9 (5-15); CALCIUM 7.7 mg/dL (8.6-10.2); CARBON DIOXIDE 26 mEQ/L (20-30); CHLORIDE 109 mEQ/L (98-107); CREATININE 0.6 mg/dL (0.5-0.9); GLOMERULAR FILTRATION RATE > 60 mL/min (>60); HEMOLYSIS 2; POTASSIUM 3.8 mEQ/L (3.4-4.9); SODIUM 144 mEQ/L (135-145)
[2016-12-08 07:25] LABS: BASOPHILS % (AUTO) 0.9 % (0.0-2.0); EOSINOPHILS % (AUTO) 1.9 % (0.0-3.0); LYMPHOCYTES % (AUTO) 26.3 % (20.0-45.0); MEAN CORPUSCULAR HEMOGLOBIN 29.4 PG (27.0-31.0); MEAN CORPUSCULAR HGB CONC 32.8 G/DL (32.0-36.0); MEAN CORPUSCULAR VOLUME 90 FL (80-99); MEAN PLATELET VOLUME 5.2 FL (6.5-10.1); MONOCYTES % (AUTO) 8.8 % (1.0-10.0); NEUTROPHILS % (AUTO) 62.1 % (45.0-75.0); PLATELET COUNT 226 K/UL (150-450); RED BLOOD COUNT 3.09 M/UL (4.20-5.40); RED CELL DISTRIBUTION WIDTH 15.1 % (11.6-14.8); WHITE BLOOD COUNT 4.8 K/UL (4.8-10.8)
[2016-12-08] MEDS: D5 1/2NS w/KCl 20mEq 1,000 ML IV SCH ×2 (07:40→20:45)
[2016-12-08] MEDS: Hydrocortisone 1% Cr 15gm TOPIC SCH ×2 (08:45→17:19)
--- NOTE | 2016-12-08 11:04 | Internal Med Progress Note ---
Subjective Date of Service: Dec 08, 2016 Physician Name Naeem Yeung Attending Physician Brian Sánchez MD Current Medications Medications (Trade) Dose Ordered Sig/Betty Route PRN Reason Start Time Stop Time Status Last Admin Dose Admin Acetaminophen (Tylenol) 650 mg Q6H PRN ORAL Mild Pain/Temp > 100.5 12/07/16 08:00 01/06/17 07:59 Dextrose (Dextrose 50%) STAT PRN IV Hypoglycemia 12/07/16 14:00 01/06/17 13:59 Dextrose/ Electrolytes (D5 0.45%NS W/ KCl 20mEq) 1,000 ml @ 75 mls/hr [id number] IV 12/07/16 04:45 01/06/17 04:44 12/08/16 07:40 Hydrocortisone (Hydrocortisone) 1 applic TWICE A DAY TOPIC 12/07/16 09:00 01/06/17 08:59 12/08/16 08:45 Ondansetron HCl (Zofran) 4 mg Q4H PRN IVP Nausea & Vomiting 12/07/16 06:00 01/06/17 05:59 Pantoprazole (Protonix) 40 mg BIAC ORAL 12/07/16 06:30 01/06/17 06:29 12/08/16 06:13 Allergies: Coded Allergies: No Known Allergies (Unverified , 12/04/16) Subjective 66 YO F admitted for rectal bleeding. Cover for Int Med-Dr Sánchez. Telemetry. S/P Endoscopy 12/06/16. S/P colonoscopy on 12/07/16. Await Transfer to Med/Surg today. Objective Last Vital Signs Date Time Temp Pulse Resp B/P Pulse Ox O2 Delivery O2 Flow Rate FiO2 12/08/16 08:00 94 12/08/16 07:53 97.7 18 123/59 97 Room Air 12/08/16 00:00 3.0 Laboratory Tests Test 12/07/16 21:40 12/08/16 05:50 White Blood Count 6.0 K/UL (4.8-10.8) 4.8 K/UL (4.8-10.8) Red Blood Count 2.87 M/UL (4.20-5.40) L 3.09 M/UL (4.20-5.40) L Hemoglobin 8.9 G/DL (12.0-16.0) L 9.1 G/DL (12.0-16.0) L Hematocrit 25.7 % (37.0-47.0) L 27.6 % (37.0-47.0) L Mean Corpuscular Volume 90 FL (80-99) 90 FL (80-99) Mean Corpuscular Hemoglobin 31.0 PG (27.0-31.0) 29.4 PG (27.0-31.0) Mean Corpuscular Hemoglobin Concent 34.6 G/DL (32.0-36.0) 32.8 G/DL (32.0-36.0) Red Cell Distribution Width 13.9 % (11.6-14.8) 15.1 % (11.6-14.8) H Platelet Count 201 K/UL (150-450) 226 K/UL (150-450) Mean Platelet Volume 5.1 FL (6.5-10.1) L 5.2 FL (6.5-10.1) L Neutrophils (%) (Auto) 67.6 % (45.0-75.0) 62.1 % (45.0-75.0) Lymphocytes (%) (Auto) 21.8 % (20.0-45.0) 26.3 % (20.0-45.0) Monocytes (%) (Auto) 8.5 % (1.0-10.0) 8.8 % (1.0-10.0) Eosinophils (%) (Auto) 1.4 % (0.0-3.0) 1.9 % (0.0-3.0) Basophils (%) (Auto) 0.8 % (0.0-2.0) 0.9 % (0.0-2.0) Sodium Level 144 mEQ/L (135-145) Potassium Level 3.8 mEQ/L (3.4-4.9) Chloride Level 109 mEQ/L (98-107) H Carbon Dioxide Level 26 mEQ/L (20-30) Anion Gap 9 (5-15) Blood Urea Nitrogen 4 mg/dL (7-23) L Creatinine 0.6 mg/dL (0.5-0.9) Estimat Glomerular Filtration Rate > 60 mL/min (>60) Glucose Level 112 mg/dL (74-106) H Calcium Level 7.7 mg/dL (8.6-10.2) L Intake and Output 12/07/16 12/08/16 19:00 07:00 Intake Total 780 ml 990 ml Balance 780 ml 990 ml Intake Oral 480 ml 240 ml IV Total 300 ml 750 ml # Voids 1 3 # Bowel Movements 2 1 Objective General: alert, cooperative, no distress, appears stated age Head: normocephalic, without obvious abnormality, atraumatic Eyes: conjunctivae/corneas clear. PERRL, EOM's intact Throat: lips, mucosa, and tongue normal. MMM Neck: supple, symmetrical, trachea midline, and no JVD Lungs: clear to auscultation bilaterally Heart: regular rate and rhythm, S1, S2 normal, no murmur, click, rub or gallop Abdomen: soft, non-tender, non-distended, bowel sounds normal; no masses or organomegaly Extremities: extremities normal, atraumatic, no cyanosis or edema Pulses: 2+ and symmetric Skin: skin color, texture, turgor normal; no rashes or lesions Neurologic: grossly normal, no focal deficits Assessment/Plan Problem List: (1) Hematochezia (2) Severe anemia Assessment & Plan: S/P 4 units PRBC total transfusion. S/P endoscopy Mon . S/P Colonoscopy 12/07/16. See GI note (3) GIB (gastrointestinal bleeding) Assessment & Plan: see GI note. S/P transfusion 1 unit packed red blood cells today (3 total). Endoscopy and colonoscopy 12/06/16. (4) PUD (peptic ulcer disease) Assessment & Plan: Cont protonix. Assessment/Plan Discharge planning: Home with home health 12/09/16 if hemoglogbin stable. NAEEM YEUNG Dec 08, 2016 11:04
--- NOTE | 2016-12-08 13:05 | Pulmonology Progress Note ---
Assessment/Plan Problems: (1) Symptomatic anemia (2) GIB (gastrointestinal bleeding) (3) PUD (peptic ulcer disease) (4) Ex-smoker Assessment/Plan tolerating diet now h/h stable IV fluids check h/h H2 reyna symptomatic treatment dc planning might go to med/surg Subjective ROS Limited/Unobtainable: No Allergies: Coded Allergies: No Known Allergies (Unverified , 12/04/16) Objective Last 24 Hour Vital Signs Date Time Temp Pulse Resp B/P Pulse Ox O2 Delivery O2 Flow Rate FiO2 12/08/16 11:40 97.0 75 18 116/53 99 Room Air 12/08/16 08:00 94 12/08/16 07:53 97.7 91 18 123/59 97 Room Air 12/08/16 04:00 68 12/08/16 04:00 97.7 77 20 114/64 98 Room Air 12/08/16 00:00 97.7 98 20 110/58 96 Room Air 3.0 12/08/16 00:00 85 12/07/16 20:00 101 12/07/16 20:00 98.1 99 20 93/58 96 Room Air 12/07/16 16:00 87 12/07/16 15:54 97.0 88 18 123/60 97 Room Air Intake and Output 12/07/16 12/08/16 18:59 06:59 Intake Total 780 ml 990 ml Balance 780 ml 990 ml Intake Oral 480 ml 240 ml IV Total 300 ml 750 ml # Voids 1 3 # Bowel Movements 2 1 Objective General Appearance: cachetic HEENT: normocephalic, atraumatic Neck: non-tender, normal alignment Respiratory/Chest: chest wall non-tender, lungs clear Cardiovascular/Chest: normal peripheral pulses, normal rate Abdomen: normal bowel sounds, non tender Extremities: normal range of motion, non-tender Skin Exam: normal pigmentation, cyanotic Laboratory Tests 12/07/16 21:40: White Blood Count 6.0, Red Blood Count 2.87L, Hemoglobin 8.9L, Hematocrit 25.7L , Mean Corpuscular Volume 90, Mean Corpuscular Hemoglobin 31.0, Mean Corpuscular Hemoglobin Concent 34.6, Red Cell Distribution Width 13.9, Platelet Count 201, Mean Platelet Volume 5.1L, Neutrophils (%) (Auto) 67.6, Lymphocytes ( %) (Auto) 21.8, Monocytes (%) (Auto) 8.5, Eosinophils (%) (Auto) 1.4, Basophils (%) (Auto) 0.8 12/08/16 05:50: White Blood Count 4.8, Red Blood Count 3.09L, Hemoglobin 9.1L, Hematocrit 27.6L , Mean Corpuscular Volume 90, Mean Corpuscular Hemoglobin 29.4, Mean Corpuscular Hemoglobin Concent 32.8, Red Cell Distribution Width 15.1H, Platelet Count 226, Mean Platelet Volume 5.2L, Neutrophils (%) (Auto) 62.1, Lymphocytes (%) (Auto) 26.3, Monocytes (%) (Auto) 8.8, Eosinophils (%) (Auto) 1.9, Basophils (%) (Auto) 0.9, Sodium Level 144, Potassium Level 3.8, Chloride Level 109H, Carbon Dioxide Level 26, Anion Gap 9, Blood Urea Nitrogen 4L, Creatinine 0.6, Estimat Glomerular Filtration Rate > 60, Glucose Level 112H, Calcium Level 7.7L Current Medications Medications (Trade) Dose Ordered Sig/Betty Route PRN Reason Start Time Stop Time Status Last Admin Dose Admin Acetaminophen (Tylenol) 650 mg Q6H PRN ORAL Mild Pain/Temp > 100.5 12/07/16 08:00 01/06/17 07:59 Dextrose (Dextrose 50%) STAT PRN IV Hypoglycemia 12/07/16 14:00 01/06/17 13:59 Dextrose/ Electrolytes (D5 0.45%NS W/ KCl 20mEq) 1,000 ml @ 75 mls/hr [id number] IV 12/07/16 04:45 01/06/17 04:44 12/08/16 07:40 Hydrocortisone (Hydrocortisone) 1 applic TWICE A DAY TOPIC 12/07/16 09:00 01/06/17 08:59 12/08/16 08:45 Ondansetron HCl (Zofran) 4 mg Q4H PRN IVP Nausea & Vomiting 12/07/16 06:00 01/06/17 05:59 Pantoprazole (Protonix) 40 mg BIAC ORAL 12/07/16 06:30 01/06/17 06:29 12/08/16 06:13 TREVOR GONSALES Dec 08, 2016 13:05
--- NOTE | 2016-12-08 22:10 | General Progress Note ---
Assessment/Plan Assessment/Plan Assessment - Lower GIB - likely diverticular, location unknown - anemia - EGD negative except for a scar from an old/healed ulcer - Colon - extensive diverticulosis and pedunculated polyp Recommendations - advance diet - monitor CBC - bleeding scan negative - d/c planning in am if stable Subjective Allergies: Coded Allergies: No Known Allergies (Unverified , 12/04/16) Subjective no further bleeding feels OK tolerating PO Objective Last 24 Hour Vital Signs Date Time Temp Pulse Resp B/P Pulse Ox O2 Delivery O2 Flow Rate FiO2 12/08/16 20:00 98.1 72 18 116/70 95 Room Air 12/08/16 20:00 80 12/08/16 16:08 97.7 79 18 104/53 97 Room Air 12/08/16 16:00 75 12/08/16 12:00 79 12/08/16 11:40 97.0 75 18 116/53 99 Room Air 12/08/16 08:00 94 12/08/16 07:53 97.7 91 18 123/59 97 Room Air 12/08/16 04:00 68 12/08/16 04:00 97.7 77 20 114/64 98 Room Air 12/08/16 00:00 97.7 98 20 110/58 96 Room Air 3.0 12/08/16 00:00 85 Intake and Output 12/07/16 12/08/16 19:00 07:00 Intake Total 780 ml 990 ml Balance 780 ml 990 ml Intake Oral 480 ml 240 ml IV Total 300 ml 750 ml # Voids 1 3 # Bowel Movements 2 1 Laboratory Tests 12/08/16 05:50: White Blood Count 4.8, Red Blood Count 3.09L, Hemoglobin 9.1L, Hematocrit 27.6L , Mean Corpuscular Volume 90, Mean Corpuscular Hemoglobin 29.4, Mean Corpuscular Hemoglobin Concent 32.8, Red Cell Distribution Width 15.1H, Platelet Count 226, Mean Platelet Volume 5.2L, Neutrophils (%) (Auto) 62.1, Lymphocytes (%) (Auto) 26.3, Monocytes (%) (Auto) 8.8, Eosinophils (%) (Auto) 1.9, Basophils (%) (Auto) 0.9, Sodium Level 144, Potassium Level 3.8, Chloride Level 109H, Carbon Dioxide Level 26, Anion Gap 9, Blood Urea Nitrogen 4L, Creatinine 0.6, Estimat Glomerular Filtration Rate > 60, Glucose Level 112H, Calcium Level 7.7L Height (Feet): 5 Height (Inches): 5.00 Weight (Pounds): 165 Objective WDWN NCAT supple CTA RRR soft ND NT no edema non focal ANTON WYATT Dec 08, 2016 22:10
--- NOTE | 2016-12-08 23:47 | Operative Note - Dictated ---
DATE OF OPERATION: 12/07/2016 ADDENDUM PROCEDURE: The procedure, its risks, indications, alternatives, and possible complications including, but not limited to, bleeding, infection, perforation, , and anesthesia complications were explained the patient and informed consent was obtained. The patient was then sedated in left lateral decubitus position. A rectal exam was done. The colonoscope was then introduced in the rectum and advanced to terminal ileum. The colonoscope was then gradually withdrawn and the mucosa examined carefully. Findings of examination as listed above. Retroflexed view of the rectum was unremarkable. The colonoscope was removed. The patient was sent to recovery in good condition. COMPLICATIONS: None. Gertrudis Nash M.D. DR: BRIANA JOB#: [id number] CC:
[2016-12-09] MEDS: D5 1/2NS w/KCl 20mEq 1,000 ML IV SCH (01:45)
[2016-12-09 04:00] VITALS: BP 126/71
[2016-12-09 07:54] LABS: BASOPHILS % (AUTO) 0.6 % (0.0-2.0); EOSINOPHILS % (AUTO) 1.4 % (0.0-3.0); LYMPHOCYTES % (AUTO) 20.4 % (20.0-45.0); MEAN CORPUSCULAR HEMOGLOBIN 29.7 PG (27.0-31.0); MEAN CORPUSCULAR HGB CONC 32.9 G/DL (32.0-36.0); MEAN CORPUSCULAR VOLUME 90 FL (80-99); MEAN PLATELET VOLUME 5.3 FL (6.5-10.1); MONOCYTES % (AUTO) 8.2 % (1.0-10.0); NEUTROPHILS % (AUTO) 69.5 % (45.0-75.0); PLATELET COUNT 246 K/UL (150-450); RED BLOOD COUNT 3.05 M/UL (4.20-5.40); RED CELL DISTRIBUTION WIDTH 14.7 % (11.6-14.8)
[2016-12-09 08:00] VITALS: BP 121/61
[2016-12-09 08:27] LABS: ANION GAP 12 (5-15); CARBON DIOXIDE 26 mEQ/L (20-30); CHLORIDE 107 mEQ/L (98-107); CREATININE 0.6 mg/dL (0.5-0.9); GLOMERULAR FILTRATION RATE > 60 mL/min (>60); HEMOLYSIS 3; POTASSIUM 3.8 mEQ/L (3.4-4.9); SODIUM 145 mEQ/L (135-145)
[2016-12-09] MEDS: Hydrocortisone 1% Cr 15gm TOPIC SCH ×2 (09:21→16:54)
--- NOTE | 2016-12-09 10:35 | Physician Query ---
PLEASE COMPLETE FORM BEFORE SIGNING Dear Dr. Naeem Corrigan Date: November [employer] Name: Edilma Freire CDS [employer] Phone No: [phone] Exercise your independent professional judgment when responding to query. Questions asked do not imply particular answer is desired or expected. We greatly appreciate your clarification on this issue. Clinical Documentation States: This patient presents with excessive bleeding, which maybe upper or lower in nature with a degree of blood loss. Clinical Findings Show: Hb 9.3, 7.7, 8.9, 9.1; Hct 27.6, 23.3, 25.7 27.6 Transfusion(s) 3Units Endoscopy Findings: Fresh red blood seen throughout the stomach and rectum all the way to the cecum.Terminal ileum had no blood in it. Therefore, suggesting colonic source.Mild to moderate scattered diverticulosis throughout the entire colon including the right colon. Please clarify the specific type of anemia below: Acuity [X]Acute []Acute on Chronic []Chronic Etiology [X] Blood loss [] ESRD [] Neoplastic disease [] Iron deficiency [] GI Bleed from [] Anemia of chronic disease, [] Unable to determine [] Other: Condition Present on Admission: [X] Yes [] No [ ] Clinically Undeterminable Please also document in your Progress Notes and/or Discharge Summary and indicate if the condition was present on admission. Naeem Corrigan MD Time/Date MTDD
[2016-12-09 12:00] VITALS: BP 115/66
--- NOTE | 2016-12-09 12:26 | Pulmonology Progress Note ---
Assessment/Plan Problems: (1) Symptomatic anemia (2) GIB (gastrointestinal bleeding) (3) PUD (peptic ulcer disease) (4) Ex-smoker Assessment/Plan no new complains tolerating diet now h/h stable IV fluids check h/h H2 reyna symptomatic treatment dc planning Subjective ROS Limited/Unobtainable: No Interval Events: comfortable, no more bleeding Allergies: Coded Allergies: No Known Allergies (Unverified , 12/04/16) Objective Last 24 Hour Vital Signs Date Time Temp Pulse Resp B/P Pulse Ox O2 Delivery O2 Flow Rate FiO2 12/09/16 08:00 98.2 89 17 121/61 95 Room Air 12/09/16 04:00 68 12/09/16 04:00 98.0 80 18 126/71 95 Room Air 12/09/16 00:00 75 12/08/16 23:50 98.1 80 18 130/75 95 Room Air 12/08/16 20:00 98.1 72 18 116/70 95 Room Air 12/08/16 20:00 80 12/08/16 16:08 97.7 79 18 104/53 97 Room Air 12/08/16 16:00 75 Intake and Output 12/08/16 12/09/16 19:00 07:00 Intake Total 435 ml 1043.75 ml Balance 435 ml 1043.75 ml Intake Oral 360 ml 200 ml IV Total 75 ml 843.75 ml # Voids 3 4 # Bowel Movements 1 1 Objective General Appearance: cachetic HEENT: normocephalic, atraumatic Neck: non-tender, normal alignment Respiratory/Chest: chest wall non-tender, lungs clear Cardiovascular/Chest: normal peripheral pulses, normal rate Abdomen: normal bowel sounds, non tender Extremities: normal range of motion, non-tender Skin Exam: normal pigmentation, cyanotic Laboratory Tests 12/09/16 06:50: White Blood Count 5.0, Red Blood Count 3.05L, Hemoglobin 9.0L, Hematocrit 27.5L , Mean Corpuscular Volume 90, Mean Corpuscular Hemoglobin 29.7, Mean Corpuscular Hemoglobin Concent 32.9, Red Cell Distribution Width 14.7, Platelet Count 246, Mean Platelet Volume 5.3L, Neutrophils (%) (Auto) 69.5, Lymphocytes ( %) (Auto) 20.4, Monocytes (%) (Auto) 8.2, Eosinophils (%) (Auto) 1.4, Basophils (%) (Auto) 0.6, Sodium Level 145, Potassium Level 3.8, Chloride Level 107, Carbon Dioxide Level 26, Anion Gap 12, Blood Urea Nitrogen 3L, Creatinine 0.6, Estimat Glomerular Filtration Rate > 60, Glucose Level 110H, Calcium Level 8.0L Current Medications Medications (Trade) Dose Ordered Sig/Betty Route PRN Reason Start Time Stop Time Status Last Admin Dose Admin Acetaminophen (Tylenol) 650 mg Q6H PRN ORAL Mild Pain/Temp > 100.5 12/07/16 08:00 01/06/17 07:59 Dextrose (Dextrose 50%) STAT PRN IV Hypoglycemia 12/07/16 14:00 01/06/17 13:59 Dextrose/ Electrolytes (D5 0.45%NS W/ KCl 20mEq) 1,000 ml @ 75 mls/hr [id number] IV 12/07/16 04:45 01/06/17 04:44 12/09/16 01:45 Hydrocortisone (Hydrocortisone) 1 applic TWICE A DAY TOPIC 12/07/16 09:00 01/06/17 08:59 12/09/16 09:21 Ondansetron HCl (Zofran) 4 mg Q4H PRN IVP Nausea & Vomiting 12/07/16 06:00 01/06/17 05:59 Pantoprazole (Protonix) 40 mg BIAC ORAL 12/07/16 06:30 01/06/17 06:29 12/09/16 06:01 TREVOR GONSALES Dec 09, 2016 12:26
[2016-12-09 16:00] VITALS: BP 106/57
--- NOTE | 2016-12-09 16:06 | Internal Med Progress Note ---
Subjective Date of Service: Dec 09, 2016 Physician Name Naeem Yeung Attending Physician Brian Sánchez MD Current Medications Medications (Trade) Dose Ordered Sig/Betty Route PRN Reason Start Time Stop Time Status Last Admin Dose Admin Acetaminophen (Tylenol) 650 mg Q6H PRN ORAL Mild Pain/Temp > 100.5 12/07/16 08:00 01/06/17 07:59 Dextrose (Dextrose 50%) STAT PRN IV Hypoglycemia 12/07/16 14:00 01/06/17 13:59 Dextrose/ Electrolytes (D5 0.45%NS W/ KCl 20mEq) 1,000 ml @ 75 mls/hr [id number] IV 12/07/16 04:45 01/06/17 04:44 12/09/16 01:45 Hydrocortisone (Hydrocortisone) 1 applic TWICE A DAY TOPIC 12/07/16 09:00 01/06/17 08:59 12/09/16 09:21 Ondansetron HCl (Zofran) 4 mg Q4H PRN IVP Nausea & Vomiting 12/07/16 06:00 01/06/17 05:59 Pantoprazole (Protonix) 40 mg BIAC ORAL 12/07/16 06:30 01/06/17 06:29 12/09/16 06:01 Allergies: Coded Allergies: No Known Allergies (Unverified , 12/04/16) ROS Limited/Unobtainable: No Constitutional: Reports: no symptoms HEENT: Reports: no symptoms Cardiovascular: Reports: no symptoms Respiratory: Reports: no symptoms Gastrointestinal/Abdominal: Reports: no symptoms Genitourinary: Reports: no symptoms Neurologic/Psychiatric: Reports: no symptoms Subjective 66 YO F admitted for rectal bleeding. Cover for Int Med-Dr Sánchez. Telemetry. S/P Endoscopy 12/06/16. S/P colonoscopy on 12/07/16. Await Discharge to home with home health. Objective Last Vital Signs Date Time Temp Pulse Resp B/P Pulse Ox O2 Delivery O2 Flow Rate FiO2 12/09/16 12:00 81 12/09/16 12:00 97.9 17 115/66 98 Room Air 12/08/16 00:00 3.0 Laboratory Tests Test 12/09/16 06:50 White Blood Count 5.0 K/UL (4.8-10.8) Red Blood Count 3.05 M/UL (4.20-5.40) L Hemoglobin 9.0 G/DL (12.0-16.0) L Hematocrit 27.5 % (37.0-47.0) L Mean Corpuscular Volume 90 FL (80-99) Mean Corpuscular Hemoglobin 29.7 PG (27.0-31.0) Mean Corpuscular Hemoglobin Concent 32.9 G/DL (32.0-36.0) Red Cell Distribution Width 14.7 % (11.6-14.8) Platelet Count 246 K/UL (150-450) Mean Platelet Volume 5.3 FL (6.5-10.1) L Neutrophils (%) (Auto) 69.5 % (45.0-75.0) Lymphocytes (%) (Auto) 20.4 % (20.0-45.0) Monocytes (%) (Auto) 8.2 % (1.0-10.0) Eosinophils (%) (Auto) 1.4 % (0.0-3.0) Basophils (%) (Auto) 0.6 % (0.0-2.0) Sodium Level 145 mEQ/L (135-145) Potassium Level 3.8 mEQ/L (3.4-4.9) Chloride Level 107 mEQ/L (98-107) Carbon Dioxide Level 26 mEQ/L (20-30) Anion Gap 12 (5-15) Blood Urea Nitrogen 3 mg/dL (7-23) L Creatinine 0.6 mg/dL (0.5-0.9) Estimat Glomerular Filtration Rate > 60 mL/min (>60) Glucose Level 110 mg/dL (74-106) H Calcium Level 8.0 mg/dL (8.6-10.2) L Intake and Output 12/08/16 12/09/16 19:00 07:00 Intake Total 435 ml 1043.75 ml Balance 435 ml 1043.75 ml Intake Oral 360 ml 200 ml IV Total 75 ml 843.75 ml # Voids 3 4 # Bowel Movements 1 1 Objective General: alert, cooperative, no distress, appears stated age Head: normocephalic, without obvious abnormality, atraumatic Eyes: conjunctivae/corneas clear. PERRL, EOM's intact Throat: lips, mucosa, and tongue normal. MMM Neck: supple, symmetrical, trachea midline, and no JVD Lungs: clear to auscultation bilaterally Heart: regular rate and rhythm, S1, S2 normal, no murmur, click, rub or gallop Abdomen: soft, non-tender, non-distended, bowel sounds normal; no masses or organomegaly Extremities: extremities normal, atraumatic, no cyanosis or edema Pulses: 2+ and symmetric Skin: skin color, texture, turgor normal; no rashes or lesions Neurologic: grossly normal, no focal deficits Assessment/Plan Problem List: (1) Hematochezia (2) Severe anemia Assessment & Plan: S/P 5 units PRBC total transfusion. S/P endoscopy Mon . S/P Colonoscopy 12/07/16. See GI note (3) GIB (gastrointestinal bleeding) Assessment & Plan: see GI note. S/P transfusion packed red blood cells today ( 5 total). S/P Endoscopy on 12/06 and colonoscopy on 12/07/16. (4) PUD (peptic ulcer disease) Assessment & Plan: Cont protonix. Status: doing well Assessment/Plan Discharge planning: Home with home health today 12/09/16. NAEEM YEUNG Dec 09, 2016 16:06
[2016-12-09] MEDS ORDERED: PROTONIX40 MG ORAL (16:07)
[2016-12-09] MEDS ORDERED: Tubing IV Secondary IV ONE (17:32)
--- NOTE | 2016-12-09 21:59 | General Progress Note ---
Assessment/Plan Assessment/Plan Assessment - Lower GIB - likely diverticular, location unknown - anemia - EGD negative except for a scar from an old/healed ulcer - Colon - extensive diverticulosis and pedunculated polyp Recommendations - po diet - monitor CBC - bleeding scan negative - d/c planning - pt given my card - accepts responsibility to f/u to r/s colonoscopy for polypectomy Subjective Allergies: Coded Allergies: No Known Allergies (Unverified , 12/04/16) Subjective no further bleeding feels OK tolerating PO for d/c Objective Last 24 Hour Vital Signs Date Time Temp Pulse Resp B/P Pulse Ox O2 Delivery O2 Flow Rate FiO2 12/09/16 16:00 96.7 83 17 106/57 95 Room Air 12/09/16 16:00 82 12/09/16 12:00 81 12/09/16 12:00 97.9 76 17 115/66 98 Room Air 12/09/16 08:00 96 12/09/16 08:00 98.2 89 17 121/61 95 Room Air 12/09/16 04:00 68 12/09/16 04:00 98.0 80 18 126/71 95 Room Air 12/09/16 00:00 75 12/08/16 23:50 98.1 80 18 130/75 95 Room Air Intake and Output 12/08/16 12/09/16 19:00 07:00 Intake Total 435 ml 1043.75 ml Balance 435 ml 1043.75 ml Intake Oral 360 ml 200 ml IV Total 75 ml 843.75 ml # Voids 3 4 # Bowel Movements 1 1 Laboratory Tests 12/09/16 06:50: White Blood Count 5.0, Red Blood Count 3.05L, Hemoglobin 9.0L, Hematocrit 27.5L , Mean Corpuscular Volume 90, Mean Corpuscular Hemoglobin 29.7, Mean Corpuscular Hemoglobin Concent 32.9, Red Cell Distribution Width 14.7, Platelet Count 246, Mean Platelet Volume 5.3L, Neutrophils (%) (Auto) 69.5, Lymphocytes ( %) (Auto) 20.4, Monocytes (%) (Auto) 8.2, Eosinophils (%) (Auto) 1.4, Basophils (%) (Auto) 0.6, Sodium Level 145, Potassium Level 3.8, Chloride Level 107, Carbon Dioxide Level 26, Anion Gap 12, Blood Urea Nitrogen 3L, Creatinine 0.6, Estimat Glomerular Filtration Rate > 60, Glucose Level 110H, Calcium Level 8.0L Height (Feet): 5 Height (Inches): 5.00 Weight (Pounds): 165 Objective WDWN NCAT supple CTA RRR soft ND NT no edema non focal ANTON WYATT Dec 09, 2016 21:59
--- NOTE | 2016-12-10 15:12 | Discharge Summary ---
Discharge Summary Hospital Course Date of Admission Dec 03, 2016 at 22:19 Date of Discharge Dec 09, 2016 at 17:33 Admitting Diagnosis HPI Chana Grover is a 66 year old female who was admitted on Dec 03, 2016 at 22: 19 for Acute Gastrointestinal Bleed Hospital Course [id number] Discharge Discharge Disposition Patient was discharged to Home with Home Health(06) Discharge Diagnoses: Drea Burleson NP Dec 10, 2016 15:12
--- NOTE | 2016-12-11 01:18 | Discharge Summary 2 SIG ---
DATE OF ADMISSION: 12/03/2016 DATE OF DISCHARGE: 12/09/2016 CONSULTANTS: 1. Gertrudis Nash M.D. 2. Douglas Castillo M.D. BRIEF HOSPITAL COURSE: The patient is a 66-year-old female, who presented to ED for evaluation of dark stools. She has history of peptic ulcer disease for 10 years and has had dark stools for two days. She was seen at [facility] on 12/01/2016 and apparently had normal hemoglobin and hematocrit at that time, and was discharged home. She continued to have dark stools and on evaluation, she was found to have anemia, hemoglobin of 7.2. She was admitted for further evaluation. She was given blood transfusion and was initially placed on NPO. Following day, there was again a drop in hemoglobin down to 6.7, 2 units PRBC were given. Dr. Nash was consulted. She was placed on proton pump inhibitors BID and underwent EGD on 12/06/2016, with findings of scar like deformity in the mid body of the stomach consistent with old healed ulcer. She had a colonoscopy done following day with findings of fresh red blood seen throughout the stomach and rectum all the way to the cecum. The terminal ileum had no blood, therefore suggesting colonic source. There was [id number] scattered diverticulosis throughout the entire colon including the right colon and pedunculated polyps in the sigmoid colon. The patient most likely had a lower GI bleed likely diverticular, however unknown location. She was continued on Protonix. The following day, there was again a drop of hemoglobin and hematocrit and received another 2 units of packed RBC. The patient was given total of 5 units during inpatient stay. Gastrointestinal bleed scan was done and was negative for evidence of active gastrointestinal bleed. Diet was advanced. The patient was eventually discharged home with home health, advised to follow-up with PMD within a week. FINAL DIAGNOSES: 1. Acute lower gastrointestinal bleed. 2. Acute anemia, requiring transfusion. 3. Peptic ulcer disease. Naeem Corrigan M.D. I have been assigned to dictate discharge summary on this account and I was not involved in the patient's management. Drea Burleson N.P. DR: Nehemias JOB#: [id number] CC: ALEXANDRO
== END 2016-12-09 17:33 | disposition home or self-care (01) | DRG 377 ==
LOC: 2E 22:19 → ICU 12-05 13:39 → 2E 12-07 04:43
PROC: 30233N1 Transfusion of Nonautologous Red Blood Cells into Peripheral Vein, Percutaneous Approach (ICD-10-PCS; principal; 2016-12-04)
PROC: 0DB68ZX Excision of Stomach, Via Natural or Artificial Opening Endoscopic, Diagnostic (ICD-10-PCS; 2016-12-06)
PROC: 0DJD8ZZ Inspection of Lower Intestinal Tract, Via Natural or Artificial Opening Endoscopic (ICD-10-PCS; 2016-12-07)
DX: K57.91 Diverticulosis of intestine, part unspecified, without perforation or abscess with bleeding (principal); R57.8 Other shock; D62 Acute posthemorrhagic anemia; K27.9 Peptic ulcer, site unspecified, unspecified as acute or chronic, without hemorrhage or perforation; Z87.891 Personal history of nicotine dependence; K64.8 Other hemorrhoids; D12.5 Benign neoplasm of sigmoid colon
CPT/HCPCS: 36415; 78278; 80048; 80053; 82270; 82378; 82607; 82746; 83540; 83550; 83615; 83735; 84100; 85007; 85025; 85044; 85060; 85610; 85651; 85730; 86850; 86900; 86901; 86920; 94003; 94150; J2250; J3490

== ENCOUNTER 2017-09-29 23:55 | Inpatient (IN) | payer MEDICARE ==
[~2017-09-29] VITALS: Ht 165.1 cm; Wt 69.9 kg
[~2017-09-29 23:55] MED LIST: HYDROCORTISON28.4 G5 RC; PROTONIX40 MG ORAL; TYLENOL EXTRA500 MG ORAL
[2017-09-30] VITALS (10 sets, daily range): BP systolic 97–126; BP diastolic 50–62
[2017-09-30] MEDS ORDERED: VITAMIN C250 MG ORAL (00:03)
[2017-09-30] MEDS ORDERED: GRAPE SEED50 MG PO (00:03)
[2017-09-30] MEDS ORDERED: FISH OIL CAP1000 MG ORAL (00:03)
[2017-09-30] MEDS ORDERED: TUMS500 MG ORAL (00:03)
[2017-09-30 00:40] LABS: BASOPHILS % (AUTO) 0.8 % (0.0-2.0); EOSINOPHILS % (AUTO) 1.6 % (0.0-3.0); HEMATOCRIT 41.8 % (37.0-47.0); HEMOGLOBIN 14.4 G/DL (12.0-16.0); LYMPHOCYTES % (AUTO) 38.9 % (20.0-45.0); MEAN CORPUSCULAR VOLUME 88 FL (80-99); MONOCYTES % (AUTO) 8.4 % (1.0-10.0); NEUTROPHILS % (AUTO) 50.2 % (45.0-75.0); PLATELET COUNT 328 K/UL (150-450); RED BLOOD COUNT 4.78 M/UL (4.20-5.40); RED CELL DISTRIBUTION WIDTH 11.8 % (11.6-14.8); WHITE BLOOD COUNT 7.2 K/UL (4.8-10.8)
[2017-09-30 00:46] LABS: ANION GAP 10 mmol/L (5-15); BLOOD UREA NITROGEN 24 mg/dL (7-18); CALCIUM 8.9 MG/DL (8.5-10.1); CARBON DIOXIDE 26 MMOL/L (21-32); CHLORIDE 103 MMOL/L (98-107); CREATININE 0.7 MG/DL (0.55-1.30); POTASSIUM 3.3 MMOL/L (3.5-5.1); SODIUM 139 MMOL/L (136-145)
[2017-09-30 00:47] LABS: INR 0.9 (0.9-1.1)
--- NOTE | 2017-09-30 00:48 | Emergency Room Report ---
History of Present Illness General Chief Complaint: Gastrointestinal Bleed Source: Patient Present Illness HPI Patient is a 67-year-old female presented after increased rectal bleeding. Patient had the sudden onset of symptoms. She reported having prior history of GI bleeding requiring transfusion. She denies aspirin or NSAID use. She had been followed by Dr. Naeem Yeung as well as Dr. Nash from [facility] patient denied any dizziness or lightheadedness. She was noted to be somewhat tachycardic. She denies abdominal pain Allergies: Coded Allergies: No Known Allergies (Unverified , 12/04/16) Patient History Past Medical History: see triage record Now: No Reviewed Nursing Documentation: PMH: Agreed, PSxH: Agreed Nursing Documentation-PMH Past Medical History: No Stated History Hx Cardiac Problems: No Hx Cancer: No Hx Neurological Problems: No Review of Systems All Other Systems: negative except mentioned in HPI Physical Exam Vital Signs Date Time Temp Pulse Resp B/P (MAP) Pulse Ox O2 Delivery O2 Flow Rate FiO2 09/29/17 23:58 97.7 120 16 146/101 97 Room Air Sp02 EP Interpretation: reviewed, normal General Appearance: normal inspection, well appearing, no apparent distress, alert, GCS 15 Head: atraumatic ENT: normal ENT inspection, hearing grossly normal, normal voice Neck: normal inspection, full range of motion, supple, no bony tend Respiratory: normal inspection, lungs clear, normal breath sounds, no respiratory distress, no retraction, no wheezing Cardiovascular #1: regular rate, rhythm, no edema Gastrointestinal: normal inspection, normal bowel sounds, non tender, soft, no guarding, no hernia Rectal: normal rectal tone, other - no stool light blood noted Genitourinary: no CVA tenderness Musculoskeletal: normal inspection, back normal, normal range of motion Neurologic: normal inspection, alert, oriented x3, responsive, radiological health specialist III-XII nml as tested, speech normal Psychiatric: normal inspection, judgement/insight normal, mood/affect normal Skin: normal inspection, normal color, no rash Medical Decision Making Diagnostic Impression: Primary Impression: GIB (gastrointestinal bleeding) ER Course The patient presented for rectal bleeding. The differential diagnosis included but was not limited to ulcer, diverticulosis, aortic aneurysm, arteriovenous formation, coagulopathy, cancer among others. The patient was noted to be initially tachycardic. Patient started on IV fluids. Initial blood studies show adequate hemoglobin. The patient had some episode of hypotension which responded to IV fluids. Repeat hemoglobin showed markedly decreased hemoglobin level compared to baseline. The patient started on IV protonix. Dr. Naeem Yeung was contacted due to primary care physician for inpatient management. Labs Test 09/30/17 00:20 White Blood Count 7.2 K/UL (4.8-10.8) Red Blood Count 4.78 M/UL (4.20-5.40) Hemoglobin 14.4 G/DL (12.0-16.0) Hematocrit 41.8 % (37.0-47.0) Mean Corpuscular Volume 88 FL (80-99) Mean Corpuscular Hemoglobin 30.1 PG (27.0-31.0) Mean Corpuscular Hemoglobin Concent 34.3 G/DL (32.0-36.0) Red Cell Distribution Width 11.8 % (11.6-14.8) Platelet Count 328 K/UL (150-450) Mean Platelet Volume 5.7 FL (6.5-10.1) Neutrophils (%) (Auto) 50.2 % (45.0-75.0) Lymphocytes (%) (Auto) 38.9 % (20.0-45.0) Monocytes (%) (Auto) 8.4 % (1.0-10.0) Eosinophils (%) (Auto) 1.6 % (0.0-3.0) Basophils (%) (Auto) 0.8 % (0.0-2.0) Prothrombin Time 9.5 SEC (9.30-11.50) Prothromb Time International Ratio 0.9 (0.9-1.1) Activated Partial Thromboplast Time 28 SEC (23-33) Sodium Level 139 MMOL/L (136-145) Potassium Level 3.3 MMOL/L (3.5-5.1) Chloride Level 103 MMOL/L (98-107) Carbon Dioxide Level 26 MMOL/L (21-32) Anion Gap 10 mmol/L (5-15) Blood Urea Nitrogen 24 mg/dL (7-18) Creatinine 0.7 MG/DL (0.55-1.30) Estimat Glomerular Filtration Rate > 60 mL/min (>60) Glucose Level 115 MG/DL (74-106) Calcium Level 8.9 MG/DL (8.5-10.1) Total Bilirubin 0.4 MG/DL (0.2-1.0) Aspartate Amino Transf (AST/SGOT) 19 U/L (15-37) Alanine Aminotransferase (ALT/SGPT) 24 U/L (12-78) Alkaline Phosphatase 82 U/L (46-116) Total Protein 7.4 G/DL (6.4-8.2) Albumin 3.6 G/DL (3.4-5.0) Globulin 3.8 g/dL Albumin/Globulin Ratio 0.9 (1.0-2.7) Last Vital Signs Date Time Temp Pulse Resp B/P (MAP) Pulse Ox O2 Delivery O2 Flow Rate FiO2 09/29/17 23:58 97.7 120 16 146/101 97 Room Air Status: unchanged Disposition: ADMITTED INPATIENT Condition: Serious Referrals: NAEEM YEUNG (PCP) Aman Hargrove Sep 30, 2017 00:48
[2017-09-30 00:51] LABS: ALANINE AMINOTRANSFERASE 24 U/L (12-78); ALBUMIN 3.6 G/DL (3.4-5.0); ALBUMIN/GLOBULIN RATIO 0.9 (1.0-2.7); ALKALINE PHOSPHATASE 82 U/L (46-116); ASPARTATE AMINO TRANSFERASE 19 U/L (15-37); BILIRUBIN,TOTAL 0.4 MG/DL (0.2-1.0)
[2017-09-30 01:52] LABS: BASOPHILS % (AUTO) 0.6 % (0.0-2.0); EOSINOPHILS % (AUTO) 0.6 % (0.0-3.0); HEMATOCRIT 33.3 % (37.0-47.0); HEMOGLOBIN 11.1 G/DL (12.0-16.0); LYMPHOCYTES % (AUTO) 15.7 % (20.0-45.0); MEAN CORPUSCULAR VOLUME 89 FL (80-99); MONOCYTES % (AUTO) 5.9 % (1.0-10.0); NEUTROPHILS % (AUTO) 77.2 % (45.0-75.0); PLATELET COUNT 233 K/UL (150-450); RED BLOOD COUNT 3.75 M/UL (4.20-5.40); WHITE BLOOD COUNT 10.3 K/UL (4.8-10.8)
--- NOTE | 2017-09-30 08:40 | General Progress Note ---
Assessment/Plan Assessment/Plan GI CONSULT Full note dictated Will arrange for colonoscopy in am Thank you Mayte Nash Subjective Allergies: Coded Allergies: No Known Allergies (Unverified , 12/04/16) Objective Last 24 Hour Vital Signs Date Time Temp Pulse Resp B/P (MAP) Pulse Ox O2 Delivery O2 Flow Rate FiO2 09/30/17 04:00 97.7 61 17 126/56 98 Room Air 09/30/17 04:00 82 09/30/17 03:55 97.7 97 22 119/42 99 Room Air 09/30/17 03:17 97.7 97 22 120/52 99 Room Air 09/29/17 23:58 97.7 120 16 146/101 97 Room Air Laboratory Tests 09/30/17 00:20: White Blood Count 7.2, Red Blood Count 4.78, Hemoglobin 14.4, Hematocrit 41.8, Mean Corpuscular Volume 88, Mean Corpuscular Hemoglobin 30.1, Mean Corpuscular Hemoglobin Concent 34.3, Red Cell Distribution Width 11.8, Platelet Count 328, Mean Platelet Volume 5.7L, Neutrophils (%) (Auto) 50.2, Lymphocytes (%) (Auto) 38.9, Monocytes (%) (Auto) 8.4, Eosinophils (%) (Auto) 1.6, Basophils (%) (Auto ) 0.8, Prothrombin Time 9.5, Prothromb Time International Ratio 0.9, Activated Partial Thromboplast Time 28, Sodium Level 139, Potassium Level 3.3L, Chloride Level 103, Carbon Dioxide Level 26, Anion Gap 10, Blood Urea Nitrogen 24H, Creatinine 0.7, Estimat Glomerular Filtration Rate > 60, Glucose Level 115H, Calcium Level 8.9, Total Bilirubin 0.4, Aspartate Amino Transf (AST/SGOT) 19, Alanine Aminotransferase (ALT/SGPT) 24, Alkaline Phosphatase 82, Troponin I 0.000, Total Protein 7.4, Albumin 3.6, Globulin 3.8, Albumin/Globulin Ratio 0.9L 09/30/17 01:40: White Blood Count 10.3, Red Blood Count 3.75L, Hemoglobin 11.1L, Hematocrit 33.3L, Mean Corpuscular Volume 89, Mean Corpuscular Hemoglobin 29.5, Mean Corpuscular Hemoglobin Concent 33.3, Red Cell Distribution Width 12.0, Platelet Count 233, Mean Platelet Volume 5.7L, Neutrophils (%) (Auto) 77.2H, Lymphocytes (%) (Auto) 15.7L, Monocytes (%) (Auto) 5.9, Eosinophils (%) (Auto) 0.6, Basophils (%) (Auto) 0.6 Height (Feet): 5 Height (Inches): 5.00 Weight (Pounds): 156 ANTON NASH Sep 30, 2017 08:40
[2017-09-30] MEDS ORDERED: Fleet's Enema 133ml RECTAL ONE (09:30)
[2017-09-30] MEDS ORDERED: Nulytely 4L ORAL ONE (10:00)
[2017-09-30 11:45] LABS: BASOPHILS % (AUTO) 0.3 % (0.0-2.0); HEMATOCRIT 34.1 % (37.0-47.0); HEMOGLOBIN 11.3 G/DL (12.0-16.0); LYMPHOCYTES % (AUTO) 18.1 % (20.0-45.0); MEAN CORPUSCULAR VOLUME 90 FL (80-99); MONOCYTES % (AUTO) 3.7 % (1.0-10.0); NEUTROPHILS % (AUTO) 77.9 % (45.0-75.0); PLATELET COUNT 274 K/UL (150-450); RED CELL DISTRIBUTION WIDTH 12.1 % (11.6-14.8); WHITE BLOOD COUNT 7.3 K/UL (4.8-10.8)
[2017-09-30 12:00] LABS: INR 0.9 (0.9-1.1)
[2017-09-30] MEDS: Fleet's Enema 133ml RECTAL ONE ×2 (12:39→13:00)
--- NOTE | 2017-09-30 14:16 | Diagnostic Imaging Report ---
Indication: Abdominal Pain Technique: Continuous helical transaxial imaging of the abdomen and pelvis was obtained from the lung base to the pubic symphysis during rapid intravenous contrast administration. Arterial phase of enhancement obtained. Coronal 2-D reformats were also obtained and maximum intensity projection images in multiple planes. Study obtained in a Siemens sensation [address] Total Dose length Product (DLP): [address] Dose Index Volume (CTDIvol): 0.15, 8.11, 32.45, 17.31, 16.29 mGy Comparison: None Findings: Scattered atheromatous plaques with calcification noted within the aorta. The celiac artery, superior mesenteric artery and bilateral renal arteries are widely patent. There is no aneurysm or dissection. The iliac arteries appear unremarkable. There are large cysts within the right kidney measuring 6.8 cm and 4.4 cm. Other smaller cysts are present. The right kidney is malrotated. There are small hypodensities in the left kidney probably cystic. Diverticula demonstrated throughout the colon. There is a moderate degree of fecal retention. IMPRESSION: No evidence of abdominal aortic aneurysm or dissection. Major branches of the aorta appear widely patent. Bmxi-ih-oismomhy atherosclerotic disease noted. Other incidentals as above The CT scanner at [facility] is accredited by the [employer] and the scans are performed using dose optimization techniques as appropriate to a performed exam including Automatic Exposure control.
--- NOTE | 2017-09-30 14:29 | Pre-Procedure Note/Attestation ---
Pre-Procedure Note/Attestation Complete Prior to Procedure Planned Procedure: not applicable Procedure Narrative: Colon / EGD Indications for Procedure Pre-Operative Diagnosis: GI Bleed Attestation I attest that I discussed the nature of the procedure; its benefits; risks and complications; and alternatives (and the risks and benefits of such alternatives ), prior to the procedure, with the patient (or the patient's legal litigation claim representative). I attest that, if there was a reasonable possibility of needing a blood transfusion, the patient (or the patient's legal litigation claim representative) was given the [facility] standardized written summary, pursuant to the Marcio George Blood Safety Act ([place] Health and Safety Code # 1645, as amended). I attest that I re-evaluated the patient just prior to the surgery and that there has been no change in the patient's H&P, except as documented below: ANTON WYATT Sep 30, 2017 14:29
[2017-09-30] MEDS ORDERED: NS 500ML IV ONE (14:30)
[2017-09-30] MEDS ORDERED: Tubing IV Secondary IV ONE (14:30)
[2017-09-30] MEDS ORDERED: DiphenhydrAMINE 50mg/ml Inj IVP PRN (15:15)
[2017-09-30] MEDS ORDERED: fentaNYL 100 mcg/2 mL IV PRN (15:15)
[2017-09-30] MEDS ORDERED: Atropine Inj 1mg/10ml Syr IV PRN (15:15)
[2017-09-30] MEDS ORDERED: Midazolam 2mg/2ml Inj IVP PRN (15:15)
--- NOTE | 2017-09-30 15:16 | Anethesia Preoperative Eval ---
Anesthesia Pre-op PMH/ROS General Date of Evaluation: Sep 30, 2017 Time of Evaluation: 14:10 Anesthesiologist: ami ASA Score: ASA 3 Mallampati Score Class I : Soft palate, uvula, fauces, pillars visible Class II: Soft palate, uvula, fauces visible Class III: Soft palate, base of uvula visible Class IV: Only hard plate visible Mallampati Classification: Class II Surgeon: martine Diagnosis: lower gi bleed Surgical Procedure: egd/colonoscopy Anesthesia History: none Social History: smoking - former smoker Family History: no anesthesia problems Allergies: Coded Allergies: No Known Allergies (Unverified , 12/04/16) Medications: see eMAR Past Medical History Pulmonary: Reports: other - emphysema Gastrointestinal/Genitourinary: Reports: other - peptic ulcer disease Hematology/Immune: Reports: anemia Anesthesia Pre-op Phys. Exam Physician Exam Last Vital Signs Date Time Temp Pulse Resp B/P (MAP) Pulse Ox O2 Delivery O2 Flow Rate FiO2 09/30/17 12:00 98.7 95 17 109/62 98 Room Air Constitutional: NAD Neurologic: CN 2-12 intact Cardiovascular: RRR Respiratory: CTA Gastrointestinal: S/NT/ND Airway Exam Mallampati Score: Class II MO: full Neck: supple TMD: 2fb ROM: limited Teeth: missing Dentures: upper, lower Anesthesia Pre-op A/P Labs Hematology Test 09/30/17 00:20 09/30/17 01:40 09/30/17 11:05 White Blood Count 7.2 K/UL (4.8-10.8) 10.3 K/UL (4.8-10.8) 7.3 K/UL (4.8-10.8) Red Blood Count 4.78 M/UL (4.20-5.40) 3.75 M/UL (4.20-5.40) L 3.80 M/UL (4.20-5.40) L Hemoglobin 14.4 G/DL (12.0-16.0) 11.1 G/DL (12.0-16.0) L 11.3 G/DL (12.0-16.0) L Hematocrit 41.8 % (37.0-47.0) 33.3 % (37.0-47.0) L 34.1 % (37.0-47.0) L Mean Corpuscular Volume 88 FL (80-99) 89 FL (80-99) 90 FL (80-99) Mean Corpuscular Hemoglobin 30.1 PG (27.0-31.0) 29.5 PG (27.0-31.0) 29.9 PG (27.0-31.0) Mean Corpuscular Hemoglobin Concent 34.3 G/DL (32.0-36.0) 33.3 G/DL (32.0-36.0) 33.2 G/DL (32.0-36.0) Red Cell Distribution Width 11.8 % (11.6-14.8) 12.0 % (11.6-14.8) 12.1 % (11.6-14.8) Platelet Count 328 K/UL (150-450) 233 K/UL (150-450) 274 K/UL (150-450) Mean Platelet Volume 5.7 FL (6.5-10.1) L 5.7 FL (6.5-10.1) L 6.2 FL (6.5-10.1) L Neutrophils (%) (Auto) 50.2 % (45.0-75.0) 77.2 % (45.0-75.0) H 77.9 % (45.0-75.0) H Lymphocytes (%) (Auto) 38.9 % (20.0-45.0) 15.7 % (20.0-45.0) L 18.1 % (20.0-45.0) L Monocytes (%) (Auto) 8.4 % (1.0-10.0) 5.9 % (1.0-10.0) 3.7 % (1.0-10.0) Eosinophils (%) (Auto) 1.6 % (0.0-3.0) 0.6 % (0.0-3.0) 0.0 % (0.0-3.0) Basophils (%) (Auto) 0.8 % (0.0-2.0) 0.6 % (0.0-2.0) 0.3 % (0.0-2.0) Coagulation Test 09/30/17 00:20 09/30/17 11:05 Prothrombin Time 9.5 SEC (9.30-11.50) 9.8 SEC (9.30-11.50) Prothromb Time International Ratio 0.9 (0.9-1.1) 0.9 (0.9-1.1) Activated Partial Thromboplast Time 28 SEC (23-33) Chemistry Test 09/30/17 00:20 Sodium Level 139 MMOL/L (136-145) Potassium Level 3.3 MMOL/L (3.5-5.1) L Chloride Level 103 MMOL/L (98-107) Carbon Dioxide Level 26 MMOL/L (21-32) Anion Gap 10 mmol/L (5-15) Blood Urea Nitrogen 24 mg/dL (7-18) H Creatinine 0.7 MG/DL (0.55-1.30) Estimat Glomerular Filtration Rate > 60 mL/min (>60) Glucose Level 115 MG/DL (74-106) H Calcium Level 8.9 MG/DL (8.5-10.1) Total Bilirubin 0.4 MG/DL (0.2-1.0) Aspartate Amino Transf (AST/SGOT) 19 U/L (15-37) Alanine Aminotransferase (ALT/SGPT) 24 U/L (12-78) Alkaline Phosphatase 82 U/L (46-116) Troponin I 0.000 ng/mL (0.000-0.056) Total Protein 7.4 G/DL (6.4-8.2) Albumin 3.6 G/DL (3.4-5.0) Globulin 3.8 g/dL Albumin/Globulin Ratio 0.9 (1.0-2.7) L Risk Assessment & Plan Assessment: asa3 Plan: mac Status Change Before Surgery: No Pre-Antibiotics Drug: APRYL Abbasi Sep 30, 2017 15:16
--- NOTE | 2017-09-30 15:42 | Endoscopy Procedure Note ---
Endoscopy Procedure Note Indication for Procedure: GIB Operative Findings/Diagnosis: divertic, sig polyp-SN/Clip, blood in TI, EGD gastric scar, HH Specimen: yes Pt Tolerated Procedure Well: Yes Estimated Blood Loss: volume - 4-500 cc suction Anesthesiologist: Juan M Tan Anesthesia: MAC Medication Given: see anesthesia record Implant(s) used?: No 50 yrs or older w/o bx or poly: Not Applicable 10yrs. F/U not recommended: Not Applicable If not recommended, why?: ANTON WYATT Sep 30, 2017 15:42
--- NOTE | 2017-09-30 15:44 | Brief Operative Note ---
Immediate Post Operative Note Operative Note Chief Complaint: GIB Pre-op Diagnosis: GI Bleed Procedure: colon,cold snare, clip, egd Post-op Diagnosis: GIB - ? small bowel Post-op Diagnosis: same as pre-op Surgeon: martine Anesthesiologist: Kale Tan Anesthesia: MAC Specimen: yes Complications: none Condition: stable Fluids: Recorded Estimated Blood Loss: none Drains: none Implant(s) used?: No ANTON WYATT Sep 30, 2017 15:44
--- NOTE | 2017-09-30 15:56 | Immediate Post-Op Evaluation ---
Immediate Post-Op Evalulation Immediate Post-Op Evalulation Procedure: egd/colonoscopy Date of Evaluation: Sep 30, 2017 Time of Evaluation: 15:56 IV Fluids: 350ml 0.9ns Blood Products: none Estimated Blood Loss: negligible Blood Pressure Systolic: 107 Blood Pressure Diastolic: 52 Pulse Rate: 83 Respiratory Rate: 18 O2 Sat by Pulse Oximetry: 100 Temperature (Fahrenheit): 98.9 Pain Score (1-10): 0 Nausea: No Vomiting: No Complications none Patient Status: awake, reacts, patent Hydration Status: adequate Drug: APRYL Abbasi Sep 30, 2017 15:56
--- NOTE | 2017-09-30 15:58 | 48 Hour Post Anesthesia Eval ---
Post Anesthesia Evaluation Procedure: egd/colonoscopy Date of Evaluation: Sep 30, 2017 Time of Evaluation: 15:58 Blood Pressure Systolic: 101 0: 50 Pulse Rate: 79 Respiratory Rate: 18 Temperature (Fahrenheit): 98.9 O2 Sat by Pulse Oximetry: 98 Airway: patent Nausea: No Vomiting: No Pain Intensity: 0 Hydration Status: adequate Cardiopulmonary Status: stable Mental Status/LOC: patient returned to baseline Post-Anesthesia Complications: none Follow-up care needed: N/A APRYL ERICKSON Sep 30, 2017 15:58
--- NOTE | 2017-09-30 16:33 | History & Physical ---
History and Physical History & Physicial Dictated for Int Med no. [id number]. MENDEZ YEUNG Sep 30, 2017 16:33
[2017-09-30] MEDS: Pantoprazole Inj IVP SCH (17:32)
[2017-09-30 17:54] LABS: BASOPHILS % (AUTO) 0.5 % (0.0-2.0); EOSINOPHILS % (AUTO) 0.2 % (0.0-3.0); HEMATOCRIT 29.9 % (37.0-47.0); HEMOGLOBIN 9.9 G/DL (12.0-16.0); LYMPHOCYTES % (AUTO) 25.5 % (20.0-45.0); MEAN CORPUSCULAR VOLUME 88 FL (80-99); NEUTROPHILS % (AUTO) 65.7 % (45.0-75.0); PLATELET COUNT 243 K/UL (150-450); RED BLOOD COUNT 3.38 M/UL (4.20-5.40); RED CELL DISTRIBUTION WIDTH 11.9 % (11.6-14.8); WHITE BLOOD COUNT 6.1 K/UL (4.8-10.8)
[2017-09-30] MEDS: NS w/KCl 20mEq 1,000 ML IV SCH (17:56)
--- NOTE | 2017-09-30 18:34 | Consultation ---
History of Present Illness General Date patient seen: Sep 30, 2017 Chief Complaint: Gastrointestinal Bleed Present Illness HPI 67-year-old female with hx of emphysema presented with CC of rectal bleeding. Patient had the sudden onset of symptoms. She reported having prior history of GI bleeding requiring transfusion. She was noted to be somewhat tachycardic. She denies abdominal pain. She is admitted to telemetry for further management. Allergies: Coded Allergies: No Known Allergies (Unverified , 12/04/16) Medication History Scheduled Ascorbic Acid* (Vitamin C*), 250 MG ORAL DAILY, (Reported) Fish Oil (Fish Oil 1,000 mg Capsule), 1,000 MG ORAL DAILY, (Reported) Hydrocortisone 1% cream (Hydrocortisone 1% cream), 28 GM RC TWICE A DAY, ( Reported) Pantoprazole* (Protonix*), 40 MG ORAL BIAC Scheduled PRN Acetaminophen* (Tylenol Extra Strength*), 500 MG ORAL Q8H PRN for Prn Headache/ Temp > 101, (Reported) Calcium Carbonate (Calcium), 500 MG ORAL THREE TIMES A DAY PRN for HEARTBURN, ( Reported) Miscellaneous Medications Grape Seed Extract (Grape Seed), 50 MG PO, (Reported) Patient History Healthcare decision maker Resuscitation status Advanced Directive on File Past Medical/Surgical History Past Medical/Surgical History: (1) Emphysema lung Review of Systems All Other Systems: negative except mentioned in HPI Physical Exam General Appearance: cachetic Lines, tubes and drains: peripheral HEENT: normocephalic, atraumatic Neck: non-tender, normal alignment Respiratory/Chest: chest wall non-tender, lungs clear Breasts: no masses Cardiovascular/Chest: normal peripheral pulses Abdomen: normal bowel sounds Extremities: normal range of motion, non-tender Neurologic: financial reporting analyst II-XII grossly normal Last 24 Hour Vital Signs Date Time Temp Pulse Resp B/P (MAP) Pulse Ox O2 Delivery O2 Flow Rate FiO2 09/30/17 16:51 74 09/30/17 16:15 98.2 79 16 105/56 98 Room Air 09/30/17 15:58 98.6 79 16 101/50 98 Room Air 09/30/17 15:58 79 18 98 09/30/17 15:56 83 18 100 09/30/17 15:55 74 18 107/52 100 Simple Mask 6.0 09/30/17 15:50 82 22 97/52 100 Simple Mask 6.0 09/30/17 15:44 98.9 83 24 105/52 100 Simple Mask 6.0 09/30/17 12:00 98.7 95 17 109/62 98 Room Air 09/30/17 11:34 85 09/30/17 08:42 98.7 70 17 100/60 98 Room Air 09/30/17 08:01 85 09/30/17 04:00 97.7 61 17 126/56 98 Room Air 09/30/17 04:00 82 09/30/17 03:55 97.7 97 22 119/42 99 Room Air 09/30/17 03:17 97.7 97 22 120/52 99 Room Air 09/29/17 23:58 97.7 120 16 146/101 97 Room Air Intake and Output 09/29/17 09/30/17 19:00 07:00 # Voids 2 Laboratory Tests Test 09/30/17 00:20 09/30/17 01:40 09/30/17 11:05 09/30/17 17:20 White Blood Count 7.2 K/UL (4.8-10.8) 10.3 K/UL (4.8-10.8) 7.3 K/UL (4.8-10.8) 6.1 K/UL (4.8-10.8) Red Blood Count 4.78 M/UL (4.20-5.40) 3.75 M/UL (4.20-5.40) L 3.80 M/UL (4.20-5.40) L 3.38 M/UL (4.20-5.40) L Hemoglobin 14.4 G/DL (12.0-16.0) 11.1 G/DL (12.0-16.0) L 11.3 G/DL (12.0-16.0) L 9.9 G/DL (12.0-16.0) L Hematocrit 41.8 % (37.0-47.0) 33.3 % (37.0-47.0) L 34.1 % (37.0-47.0) L 29.9 % (37.0-47.0) L Mean Corpuscular Volume 88 FL (80-99) 89 FL (80-99) 90 FL (80-99) 88 FL ( 80-99) Mean Corpuscular Hemoglobin 30.1 PG (27.0-31.0) 29.5 PG (27.0-31.0) 29.9 PG (27.0-31.0) 29.2 PG (27.0-31.0) Mean Corpuscular Hemoglobin Concent 34.3 G/DL (32.0-36.0) 33.3 G/DL (32.0-36.0) 33.2 G/DL (32.0-36.0) 33.1 G/DL (32.0-36.0) Red Cell Distribution Width 11.8 % (11.6-14.8) 12.0 % (11.6-14.8) 12.1 % (11.6-14.8) 11.9 % (11.6-14.8) Platelet Count 328 K/UL (150-450) 233 K/UL (150-450) 274 K/UL (150-450) 243 K/UL (150-450) Mean Platelet Volume 5.7 FL (6.5-10.1) L 5.7 FL (6.5-10.1) L 6.2 FL (6.5-10.1) L 6.5 FL (6.5-10.1) Neutrophils (%) (Auto) 50.2 % (45.0-75.0) 77.2 % (45.0-75.0) H 77.9 % (45.0-75.0) H 65.7 % (45.0-75.0) Lymphocytes (%) (Auto) 38.9 % (20.0-45.0) 15.7 % (20.0-45.0) L 18.1 % (20.0-45.0) L 25.5 % (20.0-45.0) Monocytes (%) (Auto) 8.4 % (1.0-10.0) 5.9 % (1.0-10.0) 3.7 % (1.0-10.0) 8.0 % (1.0-10.0) Eosinophils (%) (Auto) 1.6 % (0.0-3.0) 0.6 % (0.0-3.0) 0.0 % (0.0-3.0) 0.2 % (0.0-3.0) Basophils (%) (Auto) 0.8 % (0.0-2.0) 0.6 % (0.0-2.0) 0.3 % (0.0-2.0) 0.5 % (0.0-2.0) Prothrombin Time 9.5 SEC (9.30-11.50) 9.8 SEC (9.30-11.50) Prothromb Time International Ratio 0.9 (0.9-1.1) 0.9 (0.9-1.1) Activated Partial Thromboplast Time 28 SEC (23-33) Sodium Level 139 MMOL/L (136-145) Potassium Level 3.3 MMOL/L (3.5-5.1) L Chloride Level 103 MMOL/L (98-107) Carbon Dioxide Level 26 MMOL/L (21-32) Anion Gap 10 mmol/L (5-15) Blood Urea Nitrogen 24 mg/dL (7-18) H Creatinine 0.7 MG/DL (0.55-1.30) Estimat Glomerular Filtration Rate > 60 mL/min (>60) Glucose Level 115 MG/DL (74-106) H Calcium Level 8.9 MG/DL (8.5-10.1) Total Bilirubin 0.4 MG/DL (0.2-1.0) Aspartate Amino Transf (AST/SGOT) 19 U/L (15-37) Alanine Aminotransferase (ALT/SGPT) 24 U/L (12-78) Alkaline Phosphatase 82 U/L (46-116) Troponin I 0.000 ng/mL (0.000-0.056) Total Protein 7.4 G/DL (6.4-8.2) Albumin 3.6 G/DL (3.4-5.0) Globulin 3.8 g/dL Albumin/Globulin Ratio 0.9 (1.0-2.7) L Height (Feet): 5 Height (Inches): 5.00 Weight (Pounds): 156 Medications Current Medications Medications (Trade) Dose Ordered Sig/Betty Route PRN Reason Start Time Stop Time Status Last Admin Dose Admin Al Hydroxide/Mg Hydroxide (Mylanta) 15 ml Q1H PRN ORAL gi upset 2/2/18 15:15 09/30/17 19:30 Atropine Sulfate (Atropine) 0.5 mg Q5M PRN IV bpm less than 45 09/30/17 15:15 09/30/17 19:30 Diphenhydramine HCl (Benadryl) 25 mg Q15M PRN IVP Itching 09/30/17 15:15 09/30/17 19:30 Fentanyl Citrate (Sublimaze 100 mcg/2 mL) 25 mcg Q10M PRN IV Moderate Pain (Pain Scale 4-6) 09/30/17 15:15 09/30/17 19:30 Hydralazine HCl (Apresoline) 5 mg Q30M PRN IV SBP>160 OR___/DBP>90 OR___ 09/30/17 15:15 09/30/17 19:30 Midazolam HCl (Versed 2mg/2ml vial) 1 mg Q15M PRN IVP For Anxiety 09/30/17 15:15 09/30/17 19:30 Ondansetron HCl (Zofran) 4 mg Q1H PRN IVP Nausea & Vomiting 09/30/17 15:15 09/30/17 19:30 Pantoprazole (Protonix) 40 mg DAILY IVP 09/30/17 16:30 10/30/17 16:29 09/30/17 17:32 Sodium Chloride 1,000 ml @ 75 mls/hr [id number] IV 09/30/17 18:00 10/30/17 17:59 09/30/17 17:56 Assessment/Plan Problem List: (1) PUD (peptic ulcer disease) ICD Codes: K27.9 - Peptic ulcer, site unspecified, unspecified as acute or chronic, without hemorrhage or perforation SNOMED: 11306390 (2) Hemorrhagic shock SNOMED: 957802 (3) Emphysema lung ICD Codes: J43.9 - Emphysema, unspecified SNOMED: 42550339 (4) Severe anemia ICD Codes: D64.9 - Anemia, unspecified SNOMED: 443415613 Assessment/Plan npo iv fluids prbc prn respiratory treatment check electrolytes GI evalution dVT prophylaxis. TREVOR GONSALES Sep 30, 2017 18:34
--- NOTE | 2017-09-30 20:15 | Consultation ---
DATE OF CONSULTATION: 09/30/2017 GASTROENTEROLOGY CONSULTATION CONSULTING PHYSICIAN: Gertrudis Nash M.D. REFERRING PHYSICIANS: Brian Sánchez M.D. and Naeem Corrigan M.D. CHIEF COMPLAINT: I was asked to see this patient by Dr. Brian Sánchez and Dr. Naeem Corrigan for evaluation of gastrointestinal bleeding. HISTORY OF PRESENT ILLNESS: The patient is a pleasant 67-year-old woman, who comes into the hospital because of one-day history of recurrent hematochezia. The patient denies any abdominal pain, nausea, vomiting, or change in bowel habits. She denies any melena. Since yesterday, she had multiple bouts of hematochezia, which was occurring even throughout the hospital stay overnight with a drop in hematocrit. The patient had a similar presentation about a year ago, at which point she underwent an endoscopy at [facility], which was unrevealing for a source of gastrointestinal bleeding. The patient did, however, have a past history of peptic ulcer disease in the distant past. Because of negative upper endoscopy, she underwent a colonoscopy, which showed blood throughout the colon and a polyp, which was not removed at that time. She also was noted to have diverticulosis. The patient had a GI bleeding scan, which was negative for active bleeding. She was discharged and as an outpatient in January 2017, she underwent a second endoscopy where the polyp was removed by polypectomy showing tubular adenoma. She has been doing well until now, but now she is in the hospital for recurrent gastrointestinal bleeding. PAST MEDICAL HISTORY: History of peptic ulcer disease, history of diverticulosis, and history of adenomatous colon polyp. SOCIAL HISTORY: The patient does not smoke or drink alcohol. FAMILY HISTORY: Noncontributory. REVIEW OF SYSTEMS: Otherwise negative. PHYSICAL EXAMINATION: GENERAL: A pleasant woman, seen in her room. HEENT: Normocephalic and atraumatic. Sclerae anicteric. Oropharynx clear. NECK: Supple. CHEST: Clear to auscultation. CARDIOVASCULAR: Revealed a regular rate. ABDOMEN: Soft with good bowel sounds. There is no organomegaly. EXTREMITIES: Revealed no edema. LABORATORY AND DIAGNOSTIC DATA: Laboratory data was noted. ASSESSMENT: This patient presents with recurrent gastrointestinal bleeding, which is likely lower in origin. Based on the previous colonoscopy showing left greater than right scattered diverticulosis, the source is likely to be diverticular. She also has mild internal hemorrhoids, but with the degree of bleeding seen, internal hemorrhoid bleeding would be less likely. The indications, risks, alternatives, and possible complications of the colonoscopy were explained to the patient and informed consent was obtained. An endoscopy can be done only if colonoscopy results seem to point an upper gastrointestinal source. RECOMMENDATIONS: 1. Keep the patient NPO. 2. GI preparation. 3. Colonoscopy within the next 24 hours. 4. Serial CBC. 5. Transfuse as necessary. Thank you for asking me to participate in the care of this patient. Gertrudis Nash M.D. DR: BRIANA JOB#: [id number] CC:
--- NOTE | 2017-09-30 22:15 | History and Physical Report ---
DATE OF ADMISSION: 09/30/2017 CHIEF COMPLAINT: The patient is a 67-year-old female, who presents with complaint of dark stools. HISTORY OF PRESENT ILLNESS: The patient has a history of peptic ulcer disease. The patient was admitted to [facility] in November 2016 for rectal bleeding. Please see History and Physical and discharge summary dictated at that time. The patient presented to [place] emergency room on 09/29/2017. The patient states she began to have rectal bleeding last evening. Initially the stool was dark in color. The patient had approximately five loose stools, the last stool was bright red blood. The patient presented to [place] [place] emergency room. The patient admitted for rectal bleeding to rule out acute gastrointestinal hemorrhage. REVIEW OF SYSTEMS: CONSTITUTIONAL: The patient denies weight loss or gain. The patient denies fevers or chills. HEENT: The patient denies ear or throat pain. The patient denies headache. CARDIOVASCULAR: The patient denies palpitations or chest pain. CHEST: The patient denies wheeze or shortness of breath. ABDOMEN: The patient denies nausea, vomiting, diarrhea, or constipation. The patient complains of rectal bleeding as above. GENITOURINARY: The patient denies dysuria or increased frequency of urination. NEUROMUSCULAR: The patient denies seizures or generalized weakness. PAST MEDICAL HISTORY: Significant for Peptic ulcer disease diagnosed in 2005. PAST SURGICAL HISTORY: The patient denies. CURRENT MEDICATIONS: As needed Tylenol. ALLERGIES: No known drug allergies. SOCIAL HISTORY: The patient lives with her sister. The patient denies tobacco use, having quit in 2005. The patient denies alcohol use. PHYSICAL EXAMINATION: VITAL SIGNS: Temperature 98.7, respirations 17, pulse 95, blood pressure 109/62. GENERAL: The patient is well-developed and well-nourished female, in no apparent distress. HEENT: Eyes, pupils are equal and responsive to light and accommodation. Extraocular movements are intact. NECK: Supple without lymphadenopathy. CHEST: Lungs are clear to auscultation bilaterally without wheezes or rales. CARDIOVASCULAR: Regular rhythm and rate. S1 and S2 normal without murmurs, rubs, or gallops. ABDOMEN: Soft, nontender, and nondistended with positive bowel sounds. No evidence of hepatosplenomegaly. Currently, no rebound or guarding noted. EXTREMITIES: Negative for clubbing, cyanosis, or edema. RECTAL/GENITAL: Refused. NEUROLOGIC: Cranial nerves II to XII are grossly intact without focal deficits. Motor strength is 5/5 bilaterally. Deep tendon reflexes 2+ plantar. LABORATORY STUDIES: WBC 7.2, hemoglobin 14.4, hematocrit 41.8, platelets 328. Sodium 139, potassium 3.3, chloride 103, CO2 26, BUN 24, creatinine 0.7, glucose 115. A CT scan of the abdomen revealed diverticulosis throughout the colon. ASSESSMENT: This is a 67-year-old female with: 1. Rectal bleeding. 2. Diverticulosis. TREATMENT: Rectal hemorrhage/diverticulosis. A Gastroenterology consultation has been obtained with Dr. Gertrudis Nash. The patient is to be placed NPO. The patient is currently receiving bowel prep for emergent colonoscopy. We will follow recommendations of GI. The patient has been started empirically on Protonix intravenously. Naeem Corrigan M.D. DR: Tami JOB#: [id number] CC:
[2017-10-01] VITALS (8 sets, daily range): BP systolic 101–115; BP diastolic 53–82
--- NOTE | 2017-10-01 06:00 | Procedure Note ---
DATE OF PROCEDURE: 09/30/2017 GASTROENTEROLOGY PROCEDURE REPORT PROCEDURE: Colonoscopy with snare polypectomy and Endoclip placement as well as upper GI endoscopy. SURGEON: Gertrudis Nash M.D. ANESTHESIA: Please see the separate anesthesiologist notes for details. PRE-ENDOSCOPIC DIAGNOSIS: Gastrointestinal bleeding. POST-ENDOSCOPIC DIAGNOSES: 1. Fresh red blood seen throughout the colon all the way to the cecum and for about 10 cm into the terminal ileum. 2. Left-sided greater than right-sided colonic diverticulosis. 3. Two small bowel diverticula seen in the terminal ileum. 4. Diminutive 4 mm pedunculated polyp was seen in the sigmoid colon at 25 cm, which was removed with a cold snare polypectomy and treated with one Endoclip afterwards. 5. Mid-body gastric scar consistent with previous history of peptic ulcer. 6. No other upper gastrointestinal pathology identified. DESCRIPTION OF PROCEDURE: The procedure, its risks, indications, alternatives, and possible complications were explained to the patient and informed consent was obtained. The patient was then sedated in the left lateral decubitus position and a rectal exam was done. The colonoscope was introduced into the rectum and advanced approximately 10 cm into the terminal ileum. The entire colon had fresh red blood in it and the red blood extended into the terminal ileum for 10 cm examined. The terminal ileum had two small diverticula and the colon itself also had the left-sided greater than right-sided diverticulosis. There was no active bleeding from any lesion seen in the colon and the blood was cleaned and the mucosa was examined carefully. In the sigmoid colon at 25 cm, there was a 4 mm pedunculated polyp, which was removed with a snare polypectomy in a cold fashion and an Endoclip was placed prophylactically on the polypectomy site to rule out any chance of bleeding. Retroflexed view of the rectum was unremarkable. The colonoscope was removed and the patient was sent to recovery in good condition. COMPLICATIONS: None. ASSESSMENT: This examination showed blood in the terminal ileum for approximately 10 cm suggesting the blood may be coming from the small bowel. The upper gastrointestinal tract is without any bleeding lesion, and therefore, the patient will need to have a small bowel evaluation. I would recommend a nuclear medicine bleeding study. A subsequent capsule endoscopy can be done tomorrow to evaluate the small bowel. If the patient needs a more selective study such as a mesenteric angiogram, then she may require transfer to [facility] for that procedure. RECOMMENDATIONS: Per above discussion and per orders written in the chart. Gertrudis Nash M.D. DR: José Miguel JOB#: [id number] CC: ALEXANDRO
[2017-10-01] MEDS: NS w/KCl 20mEq 1,000 ML IV SCH (07:20)
[2017-10-01 08:13] LABS: ANION GAP 7 mmol/L (5-15); BLOOD UREA NITROGEN 23 mg/dL (7-18); CALCIUM 7.9 MG/DL (8.5-10.1); CARBON DIOXIDE 25 MMOL/L (21-32); CHLORIDE 116 MMOL/L (98-107); CREATININE 0.7 MG/DL (0.55-1.30); SODIUM 147 MMOL/L (136-145)
[2017-10-01 08:23] LABS: HEMATOCRIT 22.7 % (37.0-47.0); HEMOGLOBIN 7.6 G/DL (12.0-16.0); MEAN CORPUSCULAR VOLUME 88 FL (80-99); PLATELET COUNT 199 K/UL (150-450); RED BLOOD COUNT 2.57 M/UL (4.20-5.40); RED CELL DISTRIBUTION WIDTH 11.8 % (11.6-14.8); WHITE BLOOD COUNT 5.4 K/UL (4.8-10.8)
[2017-10-01] MEDS: Pantoprazole Inj IVP SCH (08:39)
--- NOTE | 2017-10-01 10:24 | General Progress Note ---
Assessment/Plan Problem List: (1) Severe anemia ICD Codes: D64.9 - Anemia, unspecified SNOMED: 227949456 (2) GIB (gastrointestinal bleeding) ICD Codes: K92.2 - Gastrointestinal hemorrhage, unspecified SNOMED: 26302664 (3) Emphysema lung ICD Codes: J43.9 - Emphysema, unspecified SNOMED: 70332468 Assessment/Plan still bleeding GI procedures report reviewed ? SB bleed will order stat CT angio agree with blood transfusion' clears for today Subjective ROS Limited/Unobtainable: Yes Allergies: Coded Allergies: No Known Allergies (Unverified , 12/04/16) Subjective still has melena Objective Last 24 Hour Vital Signs Date Time Temp Pulse Resp B/P (MAP) Pulse Ox O2 Delivery O2 Flow Rate FiO2 10/01/17 08:00 77 10/01/17 08:00 97.4 90 20 108/62 96 Room Air 10/01/17 04:00 98.2 91 20 109/55 96 Room Air 10/01/17 00:00 83 10/01/17 00:00 98.1 84 20 103/62 94 Room Air 09/30/17 20:00 97.5 78 20 115/59 97 Room Air 09/30/17 20:00 78 09/30/17 16:51 74 09/30/17 16:15 98.2 79 16 105/56 98 Room Air 09/30/17 15:58 98.6 79 16 101/50 98 Room Air 09/30/17 15:58 79 18 98 09/30/17 15:56 83 18 100 09/30/17 15:55 74 18 107/52 100 Simple Mask 6.0 09/30/17 15:50 82 22 97/52 100 Simple Mask 6.0 09/30/17 15:44 98.9 83 24 105/52 100 Simple Mask 6.0 09/30/17 12:00 98.7 95 17 109/62 98 Room Air 09/30/17 11:34 85 Intake and Output 09/30/17 10/01/17 19:00 07:00 Intake Total 500 ml Output Total 0 ml Balance 500 ml Intake IV Total 500 ml Output Estimated Blood Loss 0 ml # Voids 3 2 # Bowel Movements 1 Laboratory Tests 09/30/17 11:05: White Blood Count 7.3, Red Blood Count 3.80L, Hemoglobin 11.3L, Hematocrit 34.1L , Mean Corpuscular Volume 90, Mean Corpuscular Hemoglobin 29.9, Mean Corpuscular Hemoglobin Concent 33.2, Red Cell Distribution Width 12.1, Platelet Count 274, Mean Platelet Volume 6.2L, Neutrophils (%) (Auto) 77.9H, Lymphocytes (%) (Auto) 18.1L, Monocytes (%) (Auto) 3.7, Eosinophils (%) (Auto) 0.0, Basophils (%) (Auto) 0.3, Prothrombin Time 9.8, Prothromb Time International Ratio 0.9 09/30/17 17:20: White Blood Count 6.1, Red Blood Count 3.38L, Hemoglobin 9.9L, Hematocrit 29.9L , Mean Corpuscular Volume 88, Mean Corpuscular Hemoglobin 29.2, Mean Corpuscular Hemoglobin Concent 33.1, Red Cell Distribution Width 11.9, Platelet Count 243, Mean Platelet Volume 6.5, Neutrophils (%) (Auto) 65.7, Lymphocytes (% ) (Auto) 25.5, Monocytes (%) (Auto) 8.0, Eosinophils (%) (Auto) 0.2, Basophils ( %) (Auto) 0.5 10/01/17 06:34: White Blood Count 5.4, Red Blood Count 2.57L, Hemoglobin 7.6L, Hematocrit 22.7L , Mean Corpuscular Volume 88, Mean Corpuscular Hemoglobin 29.6, Mean Corpuscular Hemoglobin Concent 33.5, Red Cell Distribution Width 11.8, Platelet Count 199, Mean Platelet Volume 5.8L, Neutrophils (%) (Auto) , Lymphocytes (%) ( Auto) , Monocytes (%) (Auto) , Eosinophils (%) (Auto) , Basophils (%) (Auto) , Neutrophils % (Manual) [Pending], Lymphocytes % (Manual) [Pending], Platelet Estimate [Pending], Platelet Morphology [Pending], Activated Partial Thromboplast Time 23, Sodium Level 147H, Potassium Level 4.0, Chloride Level 116H, Carbon Dioxide Level 25, Anion Gap 7, Blood Urea Nitrogen 23H, Creatinine 0.7, Estimat Glomerular Filtration Rate > 60, Glucose Level 109H, Calcium Level 7.9L Height (Feet): 5 Height (Inches): 5.00 Weight (Pounds): 156 General Appearance: no apparent distress EENT: normal ENT inspection Neck: supple Cardiovascular: normal rate Respiratory/Chest: decreased breath sounds Abdomen: normal bowel sounds, non tender, soft Extremities: non-tender RIN FITZGERALD Oct 01, 2017 10:24
--- NOTE | 2017-10-01 13:06 | Internal Med Progress Note ---
Subjective Date of Service: Oct 01, 2017 Physician Name Naeem Yeung Attending Physician Naeem Yeung Current Medications Medications (Trade) Dose Ordered Sig/Betty Route PRN Reason Start Time Stop Time Status Last Admin Dose Admin Pantoprazole (Protonix) 40 mg DAILY IVP 09/30/17 16:30 10/30/17 16:29 10/01/17 08:39 Sodium Chloride 1,000 ml @ 75 mls/hr [id number] IV 09/30/17 18:00 10/30/17 17:59 10/01/17 07:20 Allergies: Coded Allergies: No Known Allergies (Unverified , 12/04/16) ROS Limited/Unobtainable: No Constitutional: Reports: no symptoms HEENT: Reports: no symptoms Cardiovascular: Reports: no symptoms Respiratory: Reports: no symptoms Gastrointestinal/Abdominal: Reports: no symptoms Genitourinary: Reports: no symptoms Neurologic/Psychiatric: Reports: no symptoms Subjective 67 YO F admitted with GI hemorrhage. Worsening anemia. Await CT angiogram. Cover for Inrt Med-Dr Sánchez. Objective Last Vital Signs Date Time Temp Pulse Resp B/P (MAP) Pulse Ox O2 Delivery O2 Flow Rate FiO2 10/01/17 12:00 97.9 91 20 107/60 100 Room Air 09/30/17 15:55 6.0 General Appearance: WD/WN, no apparent distress, alert EENT: PERRL/EOMI, normal ENT inspection Neck: non-tender, normal alignment, supple, normal inspection Cardiovascular: normal peripheral pulses, normal rate, regular rhythm, no gallop/murmur, no JVD Respiratory/Chest: chest wall non-tender, lungs clear, normal breath sounds, no respiratory distress, no accessory muscle use Abdomen: normal bowel sounds, non tender, soft, no organomegaly, no mass Extremities: normal range of motion, non-tender 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, no motor/sensory deficits Skin: normal pigmentation, warm/dry Laboratory Tests Test 09/30/17 17:20 10/01/17 06:34 White Blood Count 6.1 K/UL (4.8-10.8) 5.4 K/UL (4.8-10.8) Red Blood Count 3.38 M/UL (4.20-5.40) L 2.57 M/UL (4.20-5.40) L Hemoglobin 9.9 G/DL (12.0-16.0) L 7.6 G/DL (12.0-16.0) L Hematocrit 29.9 % (37.0-47.0) L 22.7 % (37.0-47.0) L Mean Corpuscular Volume 88 FL (80-99) 88 FL (80-99) Mean Corpuscular Hemoglobin 29.2 PG (27.0-31.0) 29.6 PG (27.0-31.0) Mean Corpuscular Hemoglobin Concent 33.1 G/DL (32.0-36.0) 33.5 G/DL (32.0-36.0) Red Cell Distribution Width 11.9 % (11.6-14.8) 11.8 % (11.6-14.8) Platelet Count 243 K/UL (150-450) 199 K/UL (150-450) Mean Platelet Volume 6.5 FL (6.5-10.1) 5.8 FL (6.5-10.1) L Neutrophils (%) (Auto) 65.7 % (45.0-75.0) % (45.0-75.0) Lymphocytes (%) (Auto) 25.5 % (20.0-45.0) % (20.0-45.0) Monocytes (%) (Auto) 8.0 % (1.0-10.0) % (1.0-10.0) Eosinophils (%) (Auto) 0.2 % (0.0-3.0) % (0.0-3.0) Basophils (%) (Auto) 0.5 % (0.0-2.0) % (0.0-2.0) Differential Total Cells Counted 100 Neutrophils % (Manual) 66 % (45-75) Lymphocytes % (Manual) 28 % (20-45) Monocytes % (Manual) 5 % (1-10) Eosinophils % (Manual) 1 % (0-3) Basophils % (Manual) 0 % (0-2) Band Neutrophils 0 % (0-8) Platelet Estimate Adequate Platelet Morphology Normal Hypochromasia 1+ Activated Partial Thromboplast Time 23 SEC (23-33) Sodium Level 147 MMOL/L (136-145) H Potassium Level 4.0 MMOL/L (3.5-5.1) Chloride Level 116 MMOL/L (98-107) H Carbon Dioxide Level 25 MMOL/L (21-32) Anion Gap 7 mmol/L (5-15) Blood Urea Nitrogen 23 mg/dL (7-18) H Creatinine 0.7 MG/DL (0.55-1.30) Estimat Glomerular Filtration Rate > 60 mL/min (>60) Glucose Level 109 MG/DL (74-106) H Calcium Level 7.9 MG/DL (8.5-10.1) L Intake and Output 09/30/17 10/01/17 19:00 07:00 Intake Total 500 ml Output Total 0 ml Balance 500 ml Intake IV Total 500 ml Output Estimated Blood Loss 0 ml # Voids 3 2 # Bowel Movements 1 Assessment/Plan Problem List: (1) Diverticulosis large intestine w/o perforation or abscess w/bleeding (2) GIH (gastrointestinal hemorrhage) Assessment & Plan: ?small bowel? See GI note. Await CT angiogram (3) Severe anemia Assessment & Plan: Due to blood loss. Transfuse 1 unit Packed RBC today. (4) PUD (peptic ulcer disease) Assessment & Plan: Continue Protonix Status: not improved NAEEM YEUNG Oct 01, 2017 13:06
[2017-10-01 17:54] LABS: HEMATOCRIT 22.6 % (37.0-47.0); HEMOGLOBIN 7.6 G/DL (12.0-16.0); MEAN CORPUSCULAR VOLUME 88 FL (80-99); PLATELET COUNT 185 K/UL (150-450); RED BLOOD COUNT 2.55 M/UL (4.20-5.40); RED CELL DISTRIBUTION WIDTH 12.1 % (11.6-14.8)
[2017-10-02] VITALS: BP 106/58
[2017-10-02] MEDS: NS w/KCl 20mEq 1,000 ML IV SCH ×3 (01:50→23:35)
[2017-10-02 04:00] VITALS: BP 110/50
[2017-10-02 07:14] LABS: HEMATOCRIT 21.5 % (37.0-47.0); HEMOGLOBIN 7.2 G/DL (12.0-16.0); MEAN CORPUSCULAR VOLUME 91 FL (80-99); PLATELET COUNT 153 K/UL (150-450); RED BLOOD COUNT 2.36 M/UL (4.20-5.40); RED CELL DISTRIBUTION WIDTH 12.5 % (11.6-14.8); WHITE BLOOD COUNT 4.9 K/UL (4.8-10.8)
[2017-10-02 07:34] LABS: ANION GAP 3 mmol/L (5-15); BLOOD UREA NITROGEN 19 mg/dL (7-18); CALCIUM 7.4 MG/DL (8.5-10.1); CARBON DIOXIDE 26 MMOL/L (21-32); CHLORIDE 114 MMOL/L (98-107); CREATININE 0.5 MG/DL (0.55-1.30); POTASSIUM 3.9 MMOL/L (3.5-5.1); SODIUM 143 MMOL/L (136-145)
[2017-10-02 08:00] VITALS: BP 103/52
--- NOTE | 2017-10-02 08:52 | General Progress Note ---
Assessment/Plan Problem List: (1) Severe anemia ICD Codes: D64.9 - Anemia, unspecified SNOMED: 397904743 (2) GIB (gastrointestinal bleeding) ICD Codes: K92.2 - Gastrointestinal hemorrhage, unspecified SNOMED: 10660867 (3) Emphysema lung ICD Codes: J43.9 - Emphysema, unspecified SNOMED: 27621183 Assessment/Plan still bleeding GI procedures report reviewed ? SB bleed CT angio reviewed plan capsule endoscopy tomorrow clears for today Subjective ROS Limited/Unobtainable: Yes Allergies: Coded Allergies: No Known Allergies (Unverified , 12/04/16) Subjective still has melena Objective Last 24 Hour Vital Signs Date Time Temp Pulse Resp B/P (MAP) Pulse Ox O2 Delivery O2 Flow Rate FiO2 10/02/17 04:00 79 10/02/17 04:00 98.3 79 18 110/50 96 Room Air 10/02/17 00:00 92 10/02/17 00:00 98.6 88 19 106/58 97 10/01/17 22:45 98.4 93 17 106/61 98 10/01/17 22:25 97.2 94 18 101/53 99 10/01/17 20:00 99.1 102 18 105/56 97 10/01/17 20:00 99 10/01/17 16:00 97.8 98 20 115/82 100 Room Air 10/01/17 16:00 92 10/01/17 12:00 86 10/01/17 12:00 97.9 91 20 107/60 100 Room Air Intake and Output 10/01/17 10/02/17 19:00 07:00 Intake Total 1125 ml 590 ml Balance 1125 ml 590 ml Intake IV Total 875 ml Blood Product 250 ml 270 ml Other 320 ml # Voids 2 2 # Bowel Movements 1 3 Laboratory Tests 10/01/17 17:30: White Blood Count 6.0, Red Blood Count 2.55L, Hemoglobin 7.6L, Hematocrit 22.6L , Mean Corpuscular Volume 88, Mean Corpuscular Hemoglobin 29.9, Mean Corpuscular Hemoglobin Concent 33.8, Red Cell Distribution Width 12.1, Platelet Count 185, Mean Platelet Volume 5.5L, Neutrophils (%) (Auto) , Lymphocytes (%) ( Auto) , Monocytes (%) (Auto) , Eosinophils (%) (Auto) , Basophils (%) (Auto) , Differential Total Cells Counted 100, Neutrophils % (Manual) 68, Lymphocytes % ( Manual) 25, Monocytes % (Manual) 6, Eosinophils % (Manual) 1, Basophils % ( Manual) 0, Band Neutrophils 0, Platelet Estimate Adequate, Platelet Morphology Normal, Hypochromasia 1+ 2//18 06:30: White Blood Count 4.9, Red Blood Count 2.36L, Hemoglobin 7.2L, Hematocrit 21.5L , Mean Corpuscular Volume 91, Mean Corpuscular Hemoglobin 30.4, Mean Corpuscular Hemoglobin Concent 33.4, Red Cell Distribution Width 12.5, Platelet Count 153, Mean Platelet Volume 5.7L, Neutrophils (%) (Auto) , Lymphocytes (%) ( Auto) , Monocytes (%) (Auto) , Eosinophils (%) (Auto) , Basophils (%) (Auto) , Neutrophils % (Manual) [Pending], Lymphocytes % (Manual) [Pending], Platelet Estimate [Pending], Platelet Morphology [Pending], Sodium Level 143, Potassium Level 3.9, Chloride Level 114H, Carbon Dioxide Level 26, Anion Gap 3L, Blood Urea Nitrogen 19H, Creatinine 0.5L, Estimat Glomerular Filtration Rate > 60, Glucose Level 102, Calcium Level 7.4L Height (Feet): 5 Height (Inches): 5.00 Weight (Pounds): 156 General Appearance: alert EENT: normal ENT inspection Neck: supple Cardiovascular: normal rate Respiratory/Chest: decreased breath sounds Abdomen: normal bowel sounds, non tender, soft Extremities: non-tender RIN FITZGERALD Oct 02, 2017 08:52
[2017-10-02] MEDS: Pantoprazole Inj IVP SCH (08:54)
[2017-10-02 12:00] VITALS: BP 104/52
--- NOTE | 2017-10-02 14:22 | Internal Med Progress Note ---
Subjective Date of Service: Oct 02, 2017 Physician Name Naeem Yeung Attending Physician Naeem Yeung Current Medications Medications (Trade) Dose Ordered Sig/Betty Route PRN Reason Start Time Stop Time Status Last Admin Dose Admin Pantoprazole (Protonix) 40 mg DAILY IVP 09/30/17 16:30 10/30/17 16:29 10/02/17 08:54 Polyethylene Glycol (Miralax) 238 gm ONCE ONCE ORAL 10/02/17 16:00 10/02/17 16:01 Sodium Chloride 1,000 ml @ 75 mls/hr [id number] IV 09/30/17 18:00 10/30/17 17:59 10/02/17 10:18 Allergies: Coded Allergies: No Known Allergies (Unverified , 12/04/16) ROS Limited/Unobtainable: No Constitutional: Reports: no symptoms HEENT: Reports: no symptoms Cardiovascular: Reports: no symptoms Respiratory: Reports: no symptoms Gastrointestinal/Abdominal: Reports: blood in stool, rectal bleeding Genitourinary: Reports: no symptoms Neurologic/Psychiatric: Reports: no symptoms Subjective 67 YO F admitted with GI hemorrhage. Worsening anemia. Cover for Inrt Med-Dr Sánchez. Objective Last Vital Signs Date Time Temp Pulse Resp B/P (MAP) Pulse Ox O2 Delivery O2 Flow Rate FiO2 10/02/17 12:00 87 10/02/17 08:00 98.1 20 103/52 97 Room Air 09/30/17 15:55 6.0 Laboratory Tests Test 10/01/17 17:30 10/02/17 06:30 White Blood Count 6.0 K/UL (4.8-10.8) 4.9 K/UL (4.8-10.8) Red Blood Count 2.55 M/UL (4.20-5.40) L 2.36 M/UL (4.20-5.40) L Hemoglobin 7.6 G/DL (12.0-16.0) L 7.2 G/DL (12.0-16.0) L Hematocrit 22.6 % (37.0-47.0) L 21.5 % (37.0-47.0) L Mean Corpuscular Volume 88 FL (80-99) 91 FL (80-99) Mean Corpuscular Hemoglobin 29.9 PG (27.0-31.0) 30.4 PG (27.0-31.0) Mean Corpuscular Hemoglobin Concent 33.8 G/DL (32.0-36.0) 33.4 G/DL (32.0-36.0) Red Cell Distribution Width 12.1 % (11.6-14.8) 12.5 % (11.6-14.8) Platelet Count 185 K/UL (150-450) 153 K/UL (150-450) Mean Platelet Volume 5.5 FL (6.5-10.1) L 5.7 FL (6.5-10.1) L Neutrophils (%) (Auto) % (45.0-75.0) % (45.0-75.0) Lymphocytes (%) (Auto) % (20.0-45.0) % (20.0-45.0) Monocytes (%) (Auto) % (1.0-10.0) % (1.0-10.0) Eosinophils (%) (Auto) % (0.0-3.0) % (0.0-3.0) Basophils (%) (Auto) % (0.0-2.0) % (0.0-2.0) Differential Total Cells Counted 100 100 Neutrophils % (Manual) 68 % (45-75) 68 % (45-75) Lymphocytes % (Manual) 25 % (20-45) 28 % (20-45) Monocytes % (Manual) 6 % (1-10) 3 % (1-10) Eosinophils % (Manual) 1 % (0-3) 1 % (0-3) Basophils % (Manual) 0 % (0-2) 0 % (0-2) Band Neutrophils 0 % (0-8) 0 % (0-8) Platelet Estimate Adequate Decreased L Platelet Morphology Normal Normal Hypochromasia 1+ 1+ Sodium Level 143 MMOL/L (136-145) Potassium Level 3.9 MMOL/L (3.5-5.1) Chloride Level 114 MMOL/L (98-107) H Carbon Dioxide Level 26 MMOL/L (21-32) Anion Gap 3 mmol/L (5-15) L Blood Urea Nitrogen 19 mg/dL (7-18) H Creatinine 0.5 MG/DL (0.55-1.30) L Estimat Glomerular Filtration Rate > 60 mL/min (>60) Glucose Level 102 MG/DL (74-106) Calcium Level 7.4 MG/DL (8.5-10.1) L Intake and Output 10/01/17 10/02/17 19:00 07:00 Intake Total 1125 ml 590 ml Balance 1125 ml 590 ml IV Total 875 ml Blood Product 250 ml 270 ml Other 320 ml # Voids 2 2 # Bowel Movements 1 3 Objective General Appearance: WD/WN, no apparent distress, alert EENT: PERRL/EOMI, normal ENT inspection Neck: non-tender, normal alignment, supple, normal inspection Cardiovascular: normal peripheral pulses, normal rate, regular rhythm, no gallop/murmur, no JVD Respiratory/Chest: chest wall non-tender, lungs clear, normal breath sounds, no respiratory distress, no accessory muscle use Abdomen: normal bowel sounds, non tender, soft, no organomegaly, no mass Extremities: normal range of motion, non-tender 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 See GI note. CT angiogram=WNL. Await capsule endoscopy-see GI note. (3) Severe anemia Assessment & Plan: Due to blood loss. S/P Transfusion 3 unit Packed RBC total. (4) PUD (peptic ulcer disease) Assessment & Plan: Continue Protonix Status: not improved NAEEM YEUNG Oct 02, 2017 14:21
[2017-10-02] MEDS ORDERED: NS 275ml ONE (15:22)
[2017-10-02] MEDS ORDERED: Tubing Blood Filter IV ONE (15:22)
[2017-10-02 15:50] LABS: HEMATOCRIT 21.8 % (37.0-47.0); HEMOGLOBIN 7.6 G/DL (12.0-16.0); MEAN CORPUSCULAR VOLUME 88 FL (80-99); PLATELET COUNT 141 K/UL (150-450); RED BLOOD COUNT 2.48 M/UL (4.20-5.40); RED CELL DISTRIBUTION WIDTH 12.4 % (11.6-14.8); WHITE BLOOD COUNT 5.4 K/UL (4.8-10.8)
[2017-10-02 16:00] VITALS: BP 113/61
[2017-10-02] MEDS ORDERED: Polyethylene Glycol 238gm bottle ORAL ONE (16:00)
--- NOTE | 2017-10-02 16:53 | Cardiology Report ---
APPROVED REPORT EKG Measurement Heart [id number] Sinus tachycardia Otherwise normal ECG
[2017-10-02 20:00] VITALS: BP 110/58
[2017-10-03] VITALS: BP 121/62
[2017-10-03 04:00] VITALS: BP 100/61
[2017-10-03] MEDS: NS w/KCl 20mEq 1,000 ML IV SCH (06:12)
[2017-10-03 06:38] LABS: HEMATOCRIT 20.5 % (37.0-47.0); HEMOGLOBIN 7.1 G/DL (12.0-16.0); MEAN CORPUSCULAR VOLUME 89 FL (80-99); PLATELET COUNT 156 K/UL (150-450); RED BLOOD COUNT 2.29 M/UL (4.20-5.40); RED CELL DISTRIBUTION WIDTH 13.7 % (11.6-14.8); WHITE BLOOD COUNT 7.7 K/UL (4.8-10.8)
[2017-10-03] MEDS ORDERED: Heplock Flush 100 units/ml 3 ml syr IV ONE (07:30)
[2017-10-03 07:35] LABS: ANION GAP 8 mmol/L (5-15); BLOOD UREA NITROGEN 16 mg/dL (7-18); CALCIUM 7.6 MG/DL (8.5-10.1); CARBON DIOXIDE 22 MMOL/L (21-32); CHLORIDE 116 MMOL/L (98-107); CREATININE 0.8 MG/DL (0.55-1.30); POTASSIUM 3.7 MMOL/L (3.5-5.1); SODIUM 146 MMOL/L (136-145)
[2017-10-03 08:00] VITALS: BP 90/53
[2017-10-03] MEDS: Pantoprazole Inj IVP SCH (08:51)
--- NOTE | 2017-10-03 09:48 | General Progress Note ---
Assessment/Plan Assessment/Plan - Assessment - recurrent GIB, possibly small bowel source - diverticulosis - anemia Recommendations - capsule endoscopy today - monitor for recurrent bleed - follow CBC - transfuse PRN Subjective Allergies: Coded Allergies: No Known Allergies (Unverified , 12/04/16) Subjective still with episodic BRBPR s/p transfusions no abd pain CTA negative Objective Last 24 Hour Vital Signs Date Time Temp Pulse Resp B/P (MAP) Pulse Ox O2 Delivery O2 Flow Rate FiO2 10/03/17 04:00 97.5 91 20 100/61 99 Room Air 10/03/17 04:00 96 10/03/17 00:00 92 10/03/17 00:00 97.9 94 20 121/62 97 Room Air 10/02/17 20:00 86 10/02/17 20:00 98.2 86 20 110/58 98 Room Air 10/02/17 16:00 85 10/02/17 16:00 97.9 80 19 113/61 100 Room Air 10/02/17 12:00 98.0 83 20 104/52 98 Room Air 10/02/17 12:00 87 Intake and Output 10/02/17 10/03/17 19:00 07:00 Intake Total 1097 ml 1010 ml Output Total 800 ml Balance 297 ml 1010 ml Intake Oral 722 ml IV Total 375 ml 750 ml Blood Product 260 ml Output Urine Total 800 ml # Voids 8 5 # Bowel Movements 1 3 Laboratory Tests 10/02/17 15:20: White Blood Count 5.4, Red Blood Count 2.48L, Hemoglobin 7.6L, Hematocrit 21.8L , Mean Corpuscular Volume 88, Mean Corpuscular Hemoglobin 30.8, Mean Corpuscular Hemoglobin Concent 35.0, Red Cell Distribution Width 12.4, Platelet Count 141L, Mean Platelet Volume 6.0L, Neutrophils (%) (Auto) , Lymphocytes (%) (Auto) , Monocytes (%) (Auto) , Eosinophils (%) (Auto) , Basophils (%) (Auto) , Differential Total Cells Counted 100, Neutrophils % (Manual) 65, Lymphocytes % ( Manual) 26, Monocytes % (Manual) 9, Eosinophils % (Manual) 0, Basophils % ( Manual) 0, Band Neutrophils 0, Platelet Estimate Adequate, Platelet Morphology Normal, Red Blood Cell Morphology Normal, Hypochromasia 1+ 10/03/17 05:40: White Blood Count 7.7, Red Blood Count 2.29L, Hemoglobin 7.1L, Hematocrit 20.5L , Mean Corpuscular Volume 89, Mean Corpuscular Hemoglobin 31.1H, Mean Corpuscular Hemoglobin Concent 34.9, Red Cell Distribution Width 13.7, Platelet Count 156, Mean Platelet Volume 6.3L, Neutrophils (%) (Auto) , Lymphocytes (%) ( Auto) , Monocytes (%) (Auto) , Eosinophils (%) (Auto) , Basophils (%) (Auto) , Differential Total Cells Counted 100, Neutrophils % (Manual) 79H, Lymphocytes % (Manual) 20, Monocytes % (Manual) 1, Eosinophils % (Manual) 0, Basophils % ( Manual) 0, Band Neutrophils 0, Platelet Estimate Adequate, Platelet Morphology Normal, Sodium Level 146H, Potassium Level 3.7, Chloride Level 116H, Carbon Dioxide Level 22, Anion Gap 8, Blood Urea Nitrogen 16, Creatinine 0.8#, Estimat Glomerular Filtration Rate > 60, Glucose Level 156H, Calcium Level 7.6L Height (Feet): 5 Height (Inches): 5.00 Weight (Pounds): 154 ANTON WYATT Oct 03, 2017 09:48
[2017-10-03 12:00] VITALS: BP 117/55
--- NOTE | 2017-10-03 12:25 | Internal Med Progress Note ---
Subjective Date of Service: Oct 03, 2017 Physician Name Naeem Yeung Attending Physician Naeem Yeung Current Medications Medications (Trade) Dose Ordered Sig/Betty Route PRN Reason Start Time Stop Time Status Last Admin Dose Admin Pantoprazole (Protonix) 40 mg DAILY IVP 09/30/17 16:30 10/30/17 16:29 10/03/17 08:51 Sodium Chloride 1,000 ml @ 75 mls/hr [id number] IV 09/30/17 18:00 10/30/17 17:59 10/03/17 06:12 Allergies: Coded Allergies: No Known Allergies (Unverified , 12/04/16) ROS Limited/Unobtainable: No Constitutional: Reports: no symptoms HEENT: Reports: no symptoms Cardiovascular: Reports: no symptoms Respiratory: Reports: no symptoms Gastrointestinal/Abdominal: Reports: no symptoms Genitourinary: Reports: no symptoms Neurologic/Psychiatric: Reports: no symptoms Subjective 67 YO F admitted with GI hemorrhage. Worsening anemia. Cover for Inrt Med-Dr Sánchez. Await capsule endoscopy Objective Last Vital Signs Date Time Temp Pulse Resp B/P (MAP) Pulse Ox O2 Delivery O2 Flow Rate FiO2 10/03/17 08:00 97.0 80 18 90/53 97 Room Air 09/30/17 15:55 6.0 Laboratory Tests Test 10/02/17 15:20 10/03/17 05:40 White Blood Count 5.4 K/UL (4.8-10.8) 7.7 K/UL (4.8-10.8) Red Blood Count 2.48 M/UL (4.20-5.40) L 2.29 M/UL (4.20-5.40) L Hemoglobin 7.6 G/DL (12.0-16.0) L 7.1 G/DL (12.0-16.0) L Hematocrit 21.8 % (37.0-47.0) L 20.5 % (37.0-47.0) L Mean Corpuscular Volume 88 FL (80-99) 89 FL (80-99) Mean Corpuscular Hemoglobin 30.8 PG (27.0-31.0) 31.1 PG (27.0-31.0) H Mean Corpuscular Hemoglobin Concent 35.0 G/DL (32.0-36.0) 34.9 G/DL (32.0-36.0) Red Cell Distribution Width 12.4 % (11.6-14.8) 13.7 % (11.6-14.8) Platelet Count 141 K/UL (150-450) L 156 K/UL (150-450) Mean Platelet Volume 6.0 FL (6.5-10.1) L 6.3 FL (6.5-10.1) L Neutrophils (%) (Auto) % (45.0-75.0) % (45.0-75.0) Lymphocytes (%) (Auto) % (20.0-45.0) % (20.0-45.0) Monocytes (%) (Auto) % (1.0-10.0) % (1.0-10.0) Eosinophils (%) (Auto) % (0.0-3.0) % (0.0-3.0) Basophils (%) (Auto) % (0.0-2.0) % (0.0-2.0) Differential Total Cells Counted 100 100 Neutrophils % (Manual) 65 % (45-75) 79 % (45-75) H Lymphocytes % (Manual) 26 % (20-45) 20 % (20-45) Monocytes % (Manual) 9 % (1-10) 1 % (1-10) Eosinophils % (Manual) 0 % (0-3) 0 % (0-3) Basophils % (Manual) 0 % (0-2) 0 % (0-2) Band Neutrophils 0 % (0-8) 0 % (0-8) Platelet Estimate Adequate Adequate Platelet Morphology Normal Normal Red Blood Cell Morphology Normal Hypochromasia 1+ Sodium Level 146 MMOL/L (136-145) H Potassium Level 3.7 MMOL/L (3.5-5.1) Chloride Level 116 MMOL/L (98-107) H Carbon Dioxide Level 22 MMOL/L (21-32) Anion Gap 8 mmol/L (5-15) Blood Urea Nitrogen 16 mg/dL (7-18) Creatinine 0.8 MG/DL (0.55-1.30) # Estimat Glomerular Filtration Rate > 60 mL/min (>60) Glucose Level 156 MG/DL (74-106) H Calcium Level 7.6 MG/DL (8.5-10.1) L Intake and Output 10/02/17 10/03/17 19:00 07:00 Intake Total 1097 ml 1010 ml Output Total 800 ml Balance 297 ml 1010 ml Intake Oral 722 ml IV Total 375 ml 750 ml Blood Product 260 ml Output Urine Total 800 ml # Voids 8 5 # Bowel Movements 1 3 Objective General Appearance: WD/WN, no apparent distress, alert EENT: PERRL/EOMI, normal ENT inspection Neck: non-tender, normal alignment, supple, normal inspection Cardiovascular: normal peripheral pulses, normal rate, regular rhythm, no gallop/murmur, no JVD Respiratory/Chest: chest wall non-tender, lungs clear, normal breath sounds, no respiratory distress, no accessory muscle use Abdomen: normal bowel sounds, non tender, soft, no organomegaly, no mass Extremities: normal range of motion, non-tender 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 See GI note. CT angiogram=WNL. Await capsule endoscopy-see GI note. (3) Severe anemia Assessment & Plan: Due to blood loss. S/P Transfusion 3 unit Packed RBC total. (4) PUD (peptic ulcer disease) Assessment & Plan: Continue Protonix Status: not improved NAEEM YEUNG Oct 03, 2017 12:25
--- NOTE | 2017-10-03 15:01 | Pulmonology Progress Note ---
Assessment/Plan Problems: (1) Hemorrhagic shock (2) PUD (peptic ulcer disease) (3) Emphysema lung (4) Severe anemia Assessment/Plan GI w/u in progress, prbc prn check eletrolytes pt/ptt respiratory treatment Subjective ROS Limited/Unobtainable: No Constitutional: Reports: no symptoms HEENT: Repors: no symptoms Respiratory: Reports: no symptoms Cardiovascular: Reports: no symptoms Gastrointestinal/Abdominal: Reports: no symptoms Allergies: Coded Allergies: No Known Allergies (Unverified , 12/04/16) Objective Last 24 Hour Vital Signs Date Time Temp Pulse Resp B/P (MAP) Pulse Ox O2 Delivery O2 Flow Rate FiO2 10/03/17 08:00 97.0 80 18 90/53 97 Room Air 10/03/17 04:00 97.5 91 20 100/61 99 Room Air 10/03/17 04:00 96 10/03/17 00:00 92 10/03/17 00:00 97.9 94 20 121/62 97 Room Air 10/02/17 20:00 86 10/02/17 20:00 98.2 86 20 110/58 98 Room Air 10/02/17 16:00 85 10/02/17 16:00 97.9 80 19 113/61 100 Room Air Intake and Output 10/02/17 10/03/17 19:00 07:00 Intake Total 1097 ml 1010 ml Output Total 800 ml Balance 297 ml 1010 ml Intake Oral 722 ml IV Total 375 ml 750 ml Blood Product 260 ml Output Urine Total 800 ml # Voids 8 5 # Bowel Movements 1 3 Objective General Appearance: alert, obese, NAD Lines, tubes and drains: peripheral HEENT: normocephalic, atraumatic, anicteric, mucous membranes moist, PERRL Neck: non-tender, supple - no meningeal signs Respiratory/Chest: chest wall non-tender, lungs clear, no respiratory distress , no accessory muscle use Cardiovascular/Chest: normal peripheral pulses, regular rhythm, SR on tele Abdomen: normal bowel sounds, non tender - obese, soft 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, no motor/sensory deficits, alert, oriented x 3, responsive Musculoskeletal: normal muscle bulk Laboratory Tests 10/02/17 15:20: White Blood Count 5.4, Red Blood Count 2.48L, Hemoglobin 7.6L, Hematocrit 21.8L , Mean Corpuscular Volume 88, Mean Corpuscular Hemoglobin 30.8, Mean Corpuscular Hemoglobin Concent 35.0, Red Cell Distribution Width 12.4, Platelet Count 141L, Mean Platelet Volume 6.0L, Neutrophils (%) (Auto) , Lymphocytes (%) (Auto) , Monocytes (%) (Auto) , Eosinophils (%) (Auto) , Basophils (%) (Auto) , Differential Total Cells Counted 100, Neutrophils % (Manual) 65, Lymphocytes % ( Manual) 26, Monocytes % (Manual) 9, Eosinophils % (Manual) 0, Basophils % ( Manual) 0, Band Neutrophils 0, Platelet Estimate Adequate, Platelet Morphology Normal, Red Blood Cell Morphology Normal, Hypochromasia + 10/03/17 05:40: White Blood Count 7.7, Red Blood Count 2.29L, Hemoglobin 7.1L, Hematocrit 20.5L , Mean Corpuscular Volume 89, Mean Corpuscular Hemoglobin 31.1H, Mean Corpuscular Hemoglobin Concent 34.9, Red Cell Distribution Width 13.7, Platelet Count 156, Mean Platelet Volume 6.3L, Neutrophils (%) (Auto) , Lymphocytes (%) ( Auto) , Monocytes (%) (Auto) , Eosinophils (%) (Auto) , Basophils (%) (Auto) , Differential Total Cells Counted 100, Neutrophils % (Manual) 79H, Lymphocytes % (Manual) 20, Monocytes % (Manual) 1, Eosinophils % (Manual) 0, Basophils % ( Manual) 0, Band Neutrophils 0, Platelet Estimate Adequate, Platelet Morphology Normal, Sodium Level 146H, Potassium Level 3.7, Chloride Level 116H, Carbon Dioxide Level 22, Anion Gap 8, Blood Urea Nitrogen 16, Creatinine 0.8#, Estimat Glomerular Filtration Rate > 60, Glucose Level 156H, Calcium Level 7.6L Current Medications Medications (Trade) Dose Ordered Sig/Betty Route PRN Reason Start Time Stop Time Status Last Admin Dose Admin Pantoprazole (Protonix) 40 mg DAILY IVP 09/30/17 16:30 10/30/17 16:29 10/03/17 08:51 Sodium Chloride 1,000 ml @ 75 mls/hr [id number] IV 09/30/17 18:00 10/30/17 17:59 10/03/17 06:12 TREVOR GONSALES Oct 03, 2017 15:01
[2017-10-03 16:00] VITALS: BP 119/67
--- NOTE | 2017-10-03 17:17 | Diagnostic Imaging Report ---
Indication: 67-year-old female with acute GI bleed Technique: In vitro labeling autologous red blood cells with 25.5 mCi 90 kidneys UltraTag. These were injected, and serial images obtained over the abdomen for one hour. Delayed images obtained at 6 hours. IV IV administration Comparison: Reference is made to CTA abdomen dated September 30, 2017 Findings: Normal blood pool activity is demonstrated. No abnormal accumulation enlarged small bowel is demonstrated Impression: Negative for scintigraphic evidence of acute active GI bleed
[2017-10-03 18:24] LABS: HEMOGLOBIN 7.2 G/DL (12.0-16.0); RED BLOOD COUNT 2.32 M/UL (4.20-5.40)
[2017-10-03 18:25] LABS: HEMATOCRIT 20.2 % (37.0-47.0); MEAN CORPUSCULAR VOLUME 87 FL (80-99); PLATELET COUNT 154 K/UL (150-450); RED CELL DISTRIBUTION WIDTH 12.7 % (11.6-14.8)
[2017-10-03 20:00] VITALS: BP 108/49
[2017-10-04] VITALS: BP 108/49
[2017-10-04] MEDS: NS w/KCl 20mEq 1,000 ML IV SCH ×2 (01:17→15:20)
[2017-10-04 04:00] VITALS: BP 93/50
[2017-10-04 07:26] LABS: HEMATOCRIT 18.3 % (37.0-47.0); MEAN CORPUSCULAR VOLUME 89 FL (80-99); PLATELET COUNT 165 K/UL (150-450); RED BLOOD COUNT 2.04 M/UL (4.20-5.40); RED CELL DISTRIBUTION WIDTH 13.8 % (11.6-14.8); WHITE BLOOD COUNT 5.7 K/UL (4.8-10.8)
[2017-10-04 07:40] LABS: ANION GAP 4 mmol/L (5-15); BLOOD UREA NITROGEN 15 mg/dL (7-18); CALCIUM 7.4 MG/DL (8.5-10.1); CARBON DIOXIDE 25 MMOL/L (21-32); CHLORIDE 111 MMOL/L (98-107); CREATININE 0.6 MG/DL (0.55-1.30); POTASSIUM 3.9 MMOL/L (3.5-5.1); SODIUM 140 MMOL/L (136-145)
[2017-10-04 07:41] LABS: HEMOGLOBIN 6.3 G/DL (12.0-16.0)
[2017-10-04 08:00] VITALS: BP 120/75
[2017-10-04] MEDS: Pantoprazole Inj IVP SCH (09:00)
[2017-10-04 12:00] VITALS: BP 108/41
[2017-10-04 16:00] VITALS: BP 103/49
--- NOTE | 2017-10-04 17:08 | Internal Med Progress Note ---
Subjective Date of Service: Oct 04, 2017 Physician Name Naeem Yeung Attending Physician Naeem Yeung Current Medications Medications (Trade) Dose Ordered Sig/Betty Route PRN Reason Start Time Stop Time Status Last Admin Dose Admin Pantoprazole (Protonix) 40 mg DAILY IVP 09/30/17 16:30 10/30/17 16:29 10/04/17 09:00 Sodium Chloride 1,000 ml @ 75 mls/hr [id number] IV 09/30/17 18:00 10/30/17 17:59 10/04/17 01:17 Allergies: Coded Allergies: No Known Allergies (Unverified , 12/04/16) ROS Limited/Unobtainable: No Constitutional: Reports: no symptoms HEENT: Reports: no symptoms Cardiovascular: Reports: no symptoms Respiratory: Reports: no symptoms Gastrointestinal/Abdominal: Reports: no symptoms Genitourinary: Reports: no symptoms Neurologic/Psychiatric: Reports: no symptoms Subjective 67 YO F admitted with GI hemorrhage. Worsening anemia. Cover for Inrt Med-Dr Sánchez. Capsule endoscopy=small bowel hemorrhage per preliminary report. Await transfer to [facility] Objective Last Vital Signs Date Time Temp Pulse Resp B/P (MAP) Pulse Ox O2 Delivery O2 Flow Rate FiO2 10/04/17 16:00 98.8 91 18 103/49 98 Room Air 09/30/17 15:55 6.0 Laboratory Tests Test 10/03/17 18:05 10/04/17 06:15 White Blood Count 7.0 K/UL (4.8-10.8) 5.7 K/UL (4.8-10.8) Red Blood Count 2.32 M/UL (4.20-5.40) L 2.04 M/UL (4.20-5.40) L Hemoglobin 7.2 G/DL (12.0-16.0) L 6.3 G/DL (12.0-16.0) *L Hematocrit 20.2 % (37.0-47.0) L 18.3 % (37.0-47.0) L Mean Corpuscular Volume 87 FL (80-99) 89 FL (80-99) Mean Corpuscular Hemoglobin 31.1 PG (27.0-31.0) H 30.7 PG (27.0-31.0) Mean Corpuscular Hemoglobin Concent 35.7 G/DL (32.0-36.0) 34.4 G/DL (32.0-36.0) Red Cell Distribution Width 12.7 % (11.6-14.8) 13.8 % (11.6-14.8) Platelet Count 154 K/UL (150-450) 165 K/UL (150-450) Mean Platelet Volume 5.9 FL (6.5-10.1) L 6.2 FL (6.5-10.1) L Neutrophils (%) (Auto) % (45.0-75.0) % (45.0-75.0) Lymphocytes (%) (Auto) % (20.0-45.0) % (20.0-45.0) Monocytes (%) (Auto) % (1.0-10.0) % (1.0-10.0) Eosinophils (%) (Auto) % (0.0-3.0) % (0.0-3.0) Basophils (%) (Auto) % (0.0-2.0) % (0.0-2.0) Differential Total Cells Counted 100 100 Neutrophils % (Manual) 75 % (45-75) 60 % (45-75) Lymphocytes % (Manual) 17 % (20-45) L 31 % (20-45) Monocytes % (Manual) 8 % (1-10) 8 % (1-10) Eosinophils % (Manual) 0 % (0-3) 1 % (0-3) Basophils % (Manual) 0 % (0-2) 0 % (0-2) Band Neutrophils 0 % (0-8) 0 % (0-8) Platelet Estimate Adequate Adequate Platelet Morphology Normal Normal Hypochromasia 2+ 2+ Anisocytosis 1+ Microcytosis 1+ Polychromasia 1+ Sodium Level 140 MMOL/L (136-145) Potassium Level 3.9 MMOL/L (3.5-5.1) Chloride Level 111 MMOL/L (98-107) H Carbon Dioxide Level 25 MMOL/L (21-32) Anion Gap 4 mmol/L (5-15) L Blood Urea Nitrogen 15 mg/dL (7-18) Creatinine 0.6 MG/DL (0.55-1.30) Estimat Glomerular Filtration Rate > 60 mL/min (>60) Glucose Level 108 MG/DL (74-106) H Calcium Level 7.4 MG/DL (8.5-10.1) L Intake and Output 10/03/17 10/04/17 19:00 07:00 Intake Total 865 ml Output Total 150 ml 150 ml Balance -150 ml 715 ml Intake Oral 240 ml IV Total 175 ml Blood Product 130 ml Other 320 ml Output Urine Total 150 ml 150 ml Estimated Blood Loss 0 ml # Voids 2 1 # Bowel Movements 2 4 Objective General Appearance: WD/WN, no apparent distress, alert EENT: PERRL/EOMI, normal ENT inspection Neck: non-tender, normal alignment, supple, normal inspection Cardiovascular: normal peripheral pulses, normal rate, regular rhythm, no gallop/murmur, no JVD Respiratory/Chest: chest wall non-tender, lungs clear, normal breath sounds, no respiratory distress, no accessory muscle use Abdomen: normal bowel sounds, non tender, soft, no organomegaly, no mass Extremities: normal range of motion, non-tender 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 See GI note. CT angiogram=WNL. [facility] (3) Severe anemia Assessment & Plan: Due to blood loss. S/P Transfusion 6 unit Packed RBC total. (4) PUD (peptic ulcer disease) Assessment & Plan: Continue Protonix Status: not improved NAEEM YEUNG Oct 04, 2017 17:08
[2017-10-04 20:11] VITALS: BP 115/57
--- NOTE | 2017-10-04 20:19 | Pulmonology Progress Note ---
Assessment/Plan Problems: (1) Hemorrhagic shock (2) PUD (peptic ulcer disease) (3) Emphysema lung (4) Severe anemia Assessment/Plan GI w/u in progress, prbc prn check eletrolytes pt/ptt respiratory treatment capsule is done lower ileus bleading Subjective Interval Events: no new complains Allergies: Coded Allergies: No Known Allergies (Unverified , 12/04/16) Objective Last 24 Hour Vital Signs Date Time Temp Pulse Resp B/P (MAP) Pulse Ox O2 Delivery O2 Flow Rate FiO2 10/04/17 20:11 98.6 93 20 115/57 98 Room Air 10/04/17 16:00 98.8 91 18 103/49 98 Room Air 10/04/17 16:00 91 10/04/17 12:00 90 10/04/17 12:00 97.7 90 18 108/41 97 Room Air 10/04/17 08:00 98.2 85 18 120/75 98 Room Air 10/04/17 08:00 101 10/04/17 04:00 97.9 81 20 93/50 99 Room Air 10/04/17 04:00 79 10/04/17 00:00 98.0 89 20 108/49 98 Room Air 10/04/17 00:00 87 Intake and Output 10/03/17 10/04/17 19:00 07:00 Intake Total 865 ml Output Total 150 ml 150 ml Balance -150 ml 715 ml Intake Oral 240 ml IV Total 175 ml Blood Product 130 ml Other 320 ml Output Urine Total 150 ml 150 ml Estimated Blood Loss 0 ml # Voids 2 1 # Bowel Movements 2 4 Objective General Appearance: alert, obese, NAD Lines, tubes and drains: peripheral HEENT: normocephalic, atraumatic, anicteric, mucous membranes moist, PERRL Neck: non-tender, supple - no meningeal signs Respiratory/Chest: chest wall non-tender, lungs clear, no respiratory distress , no accessory muscle use Cardiovascular/Chest: normal peripheral pulses, regular rhythm, SR on tele Abdomen: normal bowel sounds, non tender - obese, soft 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, no motor/sensory deficits, alert, oriented x 3, responsive Musculoskeletal: normal muscle bulk Laboratory Tests 10/04/17 06:15: White Blood Count 5.7, Red Blood Count 2.04L, Hemoglobin 6.3*L, Hematocrit 18.3L , Mean Corpuscular Volume 89, Mean Corpuscular Hemoglobin 30.7, Mean Corpuscular Hemoglobin Concent 34.4, Red Cell Distribution Width 13.8, Platelet Count 165, Mean Platelet Volume 6.2L, Neutrophils (%) (Auto) , Lymphocytes (%) ( Auto) , Monocytes (%) (Auto) , Eosinophils (%) (Auto) , Basophils (%) (Auto) , Differential Total Cells Counted 100, Neutrophils % (Manual) 60, Lymphocytes % ( Manual) 31, Monocytes % (Manual) 8, Eosinophils % (Manual) 1, Basophils % ( Manual) 0, Band Neutrophils 0, Platelet Estimate Adequate, Platelet Morphology Normal, Polychromasia 1+, Hypochromasia 2+, Sodium Level 140, Potassium Level 3.9, Chloride Level 111H, Carbon Dioxide Level 25, Anion Gap 4L, Blood Urea Nitrogen 15, Creatinine 0.6, Estimat Glomerular Filtration Rate > 60, Glucose Level 108H, Calcium Level 7.4L Current Medications Medications (Trade) Dose Ordered Sig/Betty Route PRN Reason Start Time Stop Time Status Last Admin Dose Admin Pantoprazole (Protonix) 40 mg DAILY IVP 09/30/17 16:30 10/30/17 16:29 10/04/17 09:00 Sodium Chloride 1,000 ml @ 75 mls/hr [id number] IV 09/30/17 18:00 10/30/17 17:59 10/04/17 01:17 TREVOR GONSALES Oct 04, 2017 20:19
--- NOTE | 2017-10-04 21:57 | General Progress Note ---
Assessment/Plan Assessment/Plan - Assessment - recurrent GIB, suspect terminal small bowel source - diverticulosis - anemia Recommendations -Transfer to [facility] for double baloon colonoscopy (orders given to transfer center ) - monitor for recurrent bleed - follow CBC - transfuse 2 units PRBC today Subjective Allergies: Coded Allergies: No Known Allergies (Unverified , 12/04/16) Subjective still with episodic BRBPR s/p transfusions no abd pain capsule endo (+) for TI bleed Objective Last 24 Hour Vital Signs Date Time Temp Pulse Resp B/P (MAP) Pulse Ox O2 Delivery O2 Flow Rate FiO2 10/04/17 20:11 98.6 93 20 115/57 98 Room Air 10/04/17 16:00 98.8 91 18 103/49 98 Room Air 10/04/17 16:00 91 10/04/17 12:00 90 10/04/17 12:00 97.7 90 18 108/41 97 Room Air 10/04/17 08:00 98.2 85 18 120/75 98 Room Air 10/04/17 08:00 101 10/04/17 04:00 97.9 81 20 93/50 99 Room Air 10/04/17 04:00 79 10/04/17 00:00 98.0 89 20 108/49 98 Room Air 10/04/17 00:00 87 Intake and Output 10/03/17 10/04/17 19:00 07:00 Intake Total 865 ml Output Total 150 ml 150 ml Balance -150 ml 715 ml Intake Oral 240 ml IV Total 175 ml Blood Product 130 ml Other 320 ml Output Urine Total 150 ml 150 ml Estimated Blood Loss 0 ml # Voids 2 1 # Bowel Movements 2 4 Laboratory Tests 10/04/17 06:15: White Blood Count 5.7, Red Blood Count 2.04L, Hemoglobin 6.3*L, Hematocrit 18.3L , Mean Corpuscular Volume 89, Mean Corpuscular Hemoglobin 30.7, Mean Corpuscular Hemoglobin Concent 34.4, Red Cell Distribution Width 13.8, Platelet Count 165, Mean Platelet Volume 6.2L, Neutrophils (%) (Auto) , Lymphocytes (%) ( Auto) , Monocytes (%) (Auto) , Eosinophils (%) (Auto) , Basophils (%) (Auto) , Differential Total Cells Counted 100, Neutrophils % (Manual) 60, Lymphocytes % ( Manual) 31, Monocytes % (Manual) 8, Eosinophils % (Manual) 1, Basophils % ( Manual) 0, Band Neutrophils 0, Platelet Estimate Adequate, Platelet Morphology Normal, Polychromasia 1+, Hypochromasia 2+, Sodium Level 140, Potassium Level 3.9, Chloride Level 111H, Carbon Dioxide Level 25, Anion Gap 4L, Blood Urea Nitrogen 15, Creatinine 0.6, Estimat Glomerular Filtration Rate > 60, Glucose Level 108H, Calcium Level 7.4L Height (Feet): 5 Height (Inches): 5.00 Weight (Pounds): 154 Objective WDWN woman NCAT supple CTA RRR Soft ND NT no edema non focal ANTON WYATT Oct 04, 2017 21:57
[2017-10-05] VITALS: BP 138/73
[2017-10-05 01:25] LABS: BASOPHILS % (AUTO) 0.9 % (0.0-2.0); HEMATOCRIT 25.7 % (37.0-47.0); MEAN CORPUSCULAR VOLUME 87 FL (80-99); MONOCYTES % (AUTO) 10.2 % (1.0-10.0); PLATELET COUNT 187 K/UL (150-450); RED BLOOD COUNT 2.96 M/UL (4.20-5.40); RED CELL DISTRIBUTION WIDTH 12.9 % (11.6-14.8); WHITE BLOOD COUNT 6.5 K/UL (4.8-10.8)
[2017-10-05 04:00] VITALS: BP 119/67
[2017-10-05] MEDS: NS w/KCl 20mEq 1,000 ML IV SCH ×2 (04:40→18:44)
[2017-10-05 07:51] LABS: BASOPHILS % (AUTO) 0.6 % (0.0-2.0); EOSINOPHILS % (AUTO) 1.2 % (0.0-3.0); HEMATOCRIT 23.4 % (37.0-47.0); HEMOGLOBIN 8.2 G/DL (12.0-16.0); LYMPHOCYTES % (AUTO) 23.1 % (20.0-45.0); MEAN CORPUSCULAR VOLUME 88 FL (80-99); MONOCYTES % (AUTO) 9.6 % (1.0-10.0); NEUTROPHILS % (AUTO) 65.6 % (45.0-75.0); PLATELET COUNT 191 K/UL (150-450); RED BLOOD COUNT 2.66 M/UL (4.20-5.40); RED CELL DISTRIBUTION WIDTH 13.3 % (11.6-14.8); WHITE BLOOD COUNT 5.4 K/UL (4.8-10.8)
[2017-10-05 08:00] VITALS: BP 139/65
[2017-10-05 08:01] LABS: ANION GAP 3 mmol/L (5-15); BLOOD UREA NITROGEN 7 mg/dL (7-18); CALCIUM 7.7 MG/DL (8.5-10.1); CARBON DIOXIDE 28 MMOL/L (21-32); CHLORIDE 112 MMOL/L (98-107); CREATININE 0.6 MG/DL (0.55-1.30); POTASSIUM 3.8 MMOL/L (3.5-5.1); SODIUM 143 MMOL/L (136-145)
--- NOTE | 2017-10-05 10:52 | Internal Med Progress Note ---
Subjective Date of Service: Oct 05, 2017 Physician Name Naeem Corrigan Attending Physician Naeem Corrigan Current Medications Medications (Trade) Dose Ordered Sig/Betty Route PRN Reason Start Time Stop Time Status Last Admin Dose Admin Pantoprazole (Protonix) 40 mg DAILY IVP 09/30/17 16:30 10/30/17 16:29 10/04/17 09:00 Sodium Chloride 1,000 ml @ 75 mls/hr [id number] IV 09/30/17 18:00 10/30/17 17:59 10/05/17 04:40 Allergies: Coded Allergies: No Known Allergies (Unverified , 12/04/16) ROS Limited/Unobtainable: No Constitutional: Reports: no symptoms HEENT: Reports: no symptoms Cardiovascular: Reports: no symptoms Respiratory: Reports: no symptoms Gastrointestinal/Abdominal: Reports: no symptoms Genitourinary: Reports: no symptoms Neurologic/Psychiatric: Reports: no symptoms Subjective 67 YO F admitted with GI hemorrhage. Worsening anemia. Cover for Inrt Med-Dr Sánchez. Capsule endoscopy=small bowel hemorrhage per preliminary report. Await transfer to [facility] Objective Last Vital Signs Date Time Temp Pulse Resp B/P (MAP) Pulse Ox O2 Delivery O2 Flow Rate FiO2 10/05/17 08:00 97.1 97 22 139/65 97 Room Air 09/30/17 15:55 6.0 Laboratory Tests Test 10/05/17 00:35 10/05/17 07:15 White Blood Count 6.5 K/UL (4.8-10.8) 5.4 K/UL (4.8-10.8) Red Blood Count 2.96 M/UL (4.20-5.40) L 2.66 M/UL (4.20-5.40) L Hemoglobin 9.0 G/DL (12.0-16.0) #L 8.2 G/DL (12.0-16.0) L Hematocrit 25.7 % (37.0-47.0) #L 23.4 % (37.0-47.0) L Mean Corpuscular Volume 87 FL (80-99) 88 FL (80-99) Mean Corpuscular Hemoglobin 30.3 PG (27.0-31.0) 30.9 PG (27.0-31.0) Mean Corpuscular Hemoglobin Concent 34.9 G/DL (32.0-36.0) 35.2 G/DL (32.0-36.0) Red Cell Distribution Width 12.9 % (11.6-14.8) 13.3 % (11.6-14.8) Platelet Count 187 K/UL (150-450) 191 K/UL (150-450) Mean Platelet Volume 5.8 FL (6.5-10.1) L 5.6 FL (6.5-10.1) L Neutrophils (%) (Auto) 61.0 % (45.0-75.0) 65.6 % (45.0-75.0) Lymphocytes (%) (Auto) 26.0 % (20.0-45.0) 23.1 % (20.0-45.0) Monocytes (%) (Auto) 10.2 % (1.0-10.0) H 9.6 % (1.0-10.0) Eosinophils (%) (Auto) 2.0 % (0.0-3.0) 1.2 % (0.0-3.0) Basophils (%) (Auto) 0.9 % (0.0-2.0) 0.6 % (0.0-2.0) Sodium Level 143 MMOL/L (136-145) Potassium Level 3.8 MMOL/L (3.5-5.1) Chloride Level 112 MMOL/L (98-107) H Carbon Dioxide Level 28 MMOL/L (21-32) Anion Gap 3 mmol/L (5-15) L Blood Urea Nitrogen 7 mg/dL (7-18) Creatinine 0.6 MG/DL (0.55-1.30) Estimat Glomerular Filtration Rate > 60 mL/min (>60) Glucose Level 108 MG/DL (74-106) H Calcium Level 7.7 MG/DL (8.5-10.1) L Intake and Output 10/04/17 10/05/17 18:59 06:59 Intake Total 360 ml Output Total 200 ml Balance 160 ml Intake Oral 360 ml Output Urine Total 200 ml # Voids 2 1 # Bowel Movements 2 1 Objective General Appearance: WD/WN, no apparent distress, alert EENT: PERRL/EOMI, normal ENT inspection Neck: non-tender, normal alignment, supple, normal inspection Cardiovascular: normal peripheral pulses, normal rate, regular rhythm, no gallop/murmur, no JVD Respiratory/Chest: chest wall non-tender, lungs clear, normal breath sounds, no respiratory distress, no accessory muscle use Abdomen: normal bowel sounds, non tender, soft, no organomegaly, no mass Extremities: normal range of motion, non-tender Neurologic: compliance mgr II-XII grossly normal, no motor/sensory deficits Skin: normal pigmentation, warm/dry Assessment/Plan Problem List: (1) Diverticulosis large intestine w/o perforation or abscess w/bleeding (2) GIH (gastrointestinal hemorrhage) Assessment & Plan: Prelimijnary Capsule endoscopy=small bowel. See GI note. CT angiogram=WNL. Will require double baloon colonoscopy @ [facility]-Await transfer (3) Severe anemia Assessment & Plan: Due to blood loss. S/P Transfusion 6 unit Packed RBC total. (4) PUD (peptic ulcer disease) Assessment & Plan: Continue Protonix Status: not improved Assessment/Plan Discharge planning: Transfer to [facility] for double baloon colonoscopy-Dr Sánchez attending; GI=NAEEM Dewitt Oct 05, 2017 10:52
[2017-10-05] MEDS: Pantoprazole Inj IVP SCH (10:54)
[2017-10-05 12:00] VITALS: BP 120/68
--- NOTE | 2017-10-05 13:16 | Pulmonology Progress Note ---
Assessment/Plan Problems: (1) Hemorrhagic shock (2) PUD (peptic ulcer disease) (3) Emphysema lung (4) Severe anemia Assessment/Plan no now complains, has loose bm prbc prn check eletrolytes pt/ptt respiratory treatment capsule is done lower ileus bleading transfer to [facility] ROS Limited/Unobtainable: No Allergies: Coded Allergies: No Known Allergies (Unverified , 12/04/16) Objective Last 24 Hour Vital Signs Date Time Temp Pulse Resp B/P (MAP) Pulse Ox O2 Delivery O2 Flow Rate FiO2 10/05/17 08:00 97.1 97 22 139/65 97 Room Air 10/05/17 04:00 97.9 81 20 119/67 99 Room Air 10/05/17 04:00 79 10/05/17 00:00 98.2 97 20 138/73 98 Room Air 10/05/17 00:00 91 10/04/17 20:11 98.6 93 20 115/57 98 Room Air 10/04/17 20:00 77 10/04/17 16:00 98.8 91 18 103/49 98 Room Air 10/04/17 16:00 91 Intake and Output 10/04/17 10/05/17 19:00 07:00 Intake Total 360 ml Output Total 200 ml Balance 160 ml Intake Oral 360 ml Output Urine Total 200 ml # Voids 2 1 # Bowel Movements 2 1 Objective General Appearance: alert, obese, NAD Lines, tubes and drains: peripheral HEENT: normocephalic, atraumatic, anicteric, mucous membranes moist, PERRL Neck: non-tender, supple - no meningeal signs Respiratory/Chest: chest wall non-tender, lungs clear, no respiratory distress , no accessory muscle use Cardiovascular/Chest: normal peripheral pulses, regular rhythm, SR on tele Abdomen: normal bowel sounds, non tender - obese, soft Neurologic: imaging scheduler II-XII grossly normal, no motor/sensory deficits, alert, oriented x 3, responsive Musculoskeletal: normal muscle bulk Laboratory Tests 10/05/17 00:35: White Blood Count 6.5, Red Blood Count 2.96L, Hemoglobin 9.0#L, Hematocrit 25.7# L, Mean Corpuscular Volume 87, Mean Corpuscular Hemoglobin 30.3, Mean Corpuscular Hemoglobin Concent 34.9, Red Cell Distribution Width 12.9, Platelet Count 187, Mean Platelet Volume 5.8L, Neutrophils (%) (Auto) 61.0, Lymphocytes ( %) (Auto) 26.0, Monocytes (%) (Auto) 10.2H, Eosinophils (%) (Auto) 2.0, Basophils (%) (Auto) 0.9 10/05/17 07:15: White Blood Count 5.4, Red Blood Count 2.66L, Hemoglobin 8.2L, Hematocrit 23.4L , Mean Corpuscular Volume 88, Mean Corpuscular Hemoglobin 30.9, Mean Corpuscular Hemoglobin Concent 35.2, Red Cell Distribution Width 13.3, Platelet Count 191, Mean Platelet Volume 5.6L, Neutrophils (%) (Auto) 65.6, Lymphocytes ( %) (Auto) 23.1, Monocytes (%) (Auto) 9.6, Eosinophils (%) (Auto) 1.2, Basophils (%) (Auto) 0.6, Sodium Level 143, Potassium Level 3.8, Chloride Level 112H, Carbon Dioxide Level 28, Anion Gap 3L, Blood Urea Nitrogen 7, Creatinine 0.6, Estimat Glomerular Filtration Rate > 60, Glucose Level 108H, Calcium Level 7.7L Current Medications Medications (Trade) Dose Ordered Sig/Betty Route PRN Reason Start Time Stop Time Status Last Admin Dose Admin Pantoprazole (Protonix) 40 mg DAILY IVP 09/30/17 16:30 10/30/17 16:29 10/05/17 10:54 Sodium Chloride 1,000 ml @ 75 mls/hr [id number] IV 09/30/17 18:00 10/30/17 17:59 10/05/17 04:40 TREVOR GONSALES Oct 05, 2017 13:16
[2017-10-05 16:00] VITALS: BP 117/57
--- NOTE | 2017-10-05 18:02 | Consultation ---
History of Present Illness General Date patient seen: Oct 05, 2017 Chief Complaint: Gastrointestinal Bleed Reason for Consultation: lower GI bleed Present Illness HPI 67 year old female presented to [place] emergency room on 09/29/2017. The patient states she began to have rectal bleeding evening prior to admission. Initially the stool was dark in color. The patient had approximately five loose stools, the last stool was bright red blood. The patient presented to [place] emergency room. The patient admitted for rectal bleeding to rule out acute gastrointestinal hemorrhage. Had colonoscopy, refer to procedure note. Had capsule endoscopy. Bleeding noted to be in ileum. Plans for transfer to [facility] for double balloon scope management/hemostasis. Pending transfer. H/H drop again while awaiting transfer. Surgery called to evaluate and be available if becomes unstable prior to transfer warranting urgent surgical intervention for hemostasis. Has received 6 units PRBC already. Patient seen, chart reviewed, labs noted. patient states fortunately no recent active bleeding. most recent stool brown. no n/v/f/c. Allergies: Coded Allergies: No Known Allergies (Unverified , 12/04/16) Medication History Scheduled Ascorbic Acid* (Vitamin C*), 250 MG ORAL DAILY, (Reported) Fish Oil (Fish Oil 1,000 mg Capsule), 1,000 MG ORAL DAILY, (Reported) Hydrocortisone 1% cream (Hydrocortisone 1% cream), 28 GM RC TWICE A DAY, ( Reported) Pantoprazole* (Protonix*), 40 MG ORAL BIAC Scheduled PRN Acetaminophen* (Tylenol Extra Strength*), 500 MG ORAL Q8H PRN for Prn Headache/ Temp > 101, (Reported) Calcium Carbonate (Calcium), 500 MG ORAL THREE TIMES A DAY PRN for HEARTBURN, ( Reported) Miscellaneous Medications Grape Seed Extract (Grape Seed), 50 MG PO, (Reported) Patient History History Provided By: Patient, Medical Record, PMD Healthcare decision maker SELF Resuscitation status Advanced Directive on File Past Medical/Surgical History Past Medical/Surgical History: (1) Symptomatic anemia (2) Hematochezia (3) Emphysema lung (4) Hemorrhagic shock (5) PUD (peptic ulcer disease) (6) Severe anemia (7) GIB (gastrointestinal bleeding) (8) GIH (gastrointestinal hemorrhage) (9) Diverticulosis large intestine w/o perforation or abscess w/bleeding Review of Systems Constitutional: Denies: no symptoms, see HPI, chills, sweats, fever, malaise, weakness, other Eye: Denies: no symptoms, see HPI, eye pain, blurred vision, tearing, double vision, nose pain, nose congestion, acuity changes, discharge, other ENT: Denies: no symptoms, see HPI, ear pain, ear discharge, nose pain, nose congestion, throat pain, throat swelling, mouth pain, hearing loss, nasal discharge, other Respiratory: Denies: no symptoms, see HPI, cough, orthopnea, shortness of breath, stridor, wheezing, [place], sputum, other Cardiovascular: Denies: no symptoms, see HPI, chest pain, edema, palpitations, syncope, PND, other Gastrointestinal: Denies: no symptoms, see HPI, abdominal pain, constipation, diarrhea, nausea, vomiting, melena, hematemesis, other Genitourinary: Denies: no symptoms, see HPI, discharge, dysuria, frequency, hematuria, pain, retention, incontinence, urgency, vag bleed/dc, other Musculoskeletal: Denies: no symptoms, see HPI, back pain, gout, joint pain, joint swelling, muscle pain, muscle stiffness, other Skin: Denies: no symptoms, see HPI, rash, change in color, change in hair/nails , dryness, lesions, other Psychiatric: Denies: no symptoms, see HPI, prior hx, anxiety, depressed feelings, emotional problems, SI, HI, hallucinations, other Neurological: Denies: no symptoms, see HPI, headache, numbness, paresthesia, seizure, tingling, tremors, focal weakness, syncope, dizziness, other Endocrine: Denies: no symptoms, see HPI, excessive sweating, flushing, intolerance to temperature, increased thirst, increased urine, unexplained weight loss, other Hematologic/Lymphatic: Denies: no symptoms, see HPI, anemia, blood clots, easy bleeding, easy bruising, swollen glands, diathesis, other All Other Systems: negative except mentioned in HPI Physical Exam General Appearance: no apparent distress HEENT: normocephalic, mucous membranes moist, PERRL Neck: supple Respiratory/Chest: lungs clear, normal breath sounds, no respiratory distress, no accessory muscle use Cardiovascular/Chest: normal peripheral pulses, normal rate, regular rhythm Abdomen: normal bowel sounds, non tender, soft, no organomegaly, no mass Extremities: normal inspection, no calf tenderness Skin Exam: normal pigmentation Neurologic: alert, oriented x 3 Last 24 Hour Vital Signs Date Time Temp Pulse Resp B/P (MAP) Pulse Ox O2 Delivery O2 Flow Rate FiO2 10/05/17 16:00 97.0 83 19 117/57 98 Room Air 10/05/17 12:00 74 10/05/17 12:00 97.7 82 20 120/68 97 Room Air 10/05/17 08:00 123 10/05/17 08:00 97.1 97 22 139/65 97 Room Air 10/05/17 08:00 123 10/05/17 08:00 109 10/05/17 04:00 97.9 81 20 119/67 99 Room Air 10/05/17 04:00 79 10/05/17 00:00 98.2 97 20 138/73 98 Room Air 10/05/17 00:00 91 10/04/17 20:11 98.6 93 20 115/57 98 Room Air 10/04/17 20:00 77 Intake and Output 10/04/17 10/05/17 19:00 07:00 Intake Total 360 ml Output Total 200 ml Balance 160 ml Intake Oral 360 ml Output Urine Total 200 ml # Voids 2 1 # Bowel Movements 2 1 Laboratory Tests Test 10/05/17 00:35 10/05/17 07:15 White Blood Count 6.5 K/UL (4.8-10.8) 5.4 K/UL (4.8-10.8) Red Blood Count 2.96 M/UL (4.20-5.40) L 2.66 M/UL (4.20-5.40) L Hemoglobin 9.0 G/DL (12.0-16.0) #L 8.2 G/DL (12.0-16.0) L Hematocrit 25.7 % (37.0-47.0) #L 23.4 % (37.0-47.0) L Mean Corpuscular Volume 87 FL (80-99) 88 FL (80-99) Mean Corpuscular Hemoglobin 30.3 PG (27.0-31.0) 30.9 PG (27.0-31.0) Mean Corpuscular Hemoglobin Concent 34.9 G/DL (32.0-36.0) 35.2 G/DL (32.0-36.0) Red Cell Distribution Width 12.9 % (11.6-14.8) 13.3 % (11.6-14.8) Platelet Count 187 K/UL (150-450) 191 K/UL (150-450) Mean Platelet Volume 5.8 FL (6.5-10.1) L 5.6 FL (6.5-10.1) L Neutrophils (%) (Auto) 61.0 % (45.0-75.0) 65.6 % (45.0-75.0) Lymphocytes (%) (Auto) 26.0 % (20.0-45.0) 23.1 % (20.0-45.0) Monocytes (%) (Auto) 10.2 % (1.0-10.0) H 9.6 % (1.0-10.0) Eosinophils (%) (Auto) 2.0 % (0.0-3.0) 1.2 % (0.0-3.0) Basophils (%) (Auto) 0.9 % (0.0-2.0) 0.6 % (0.0-2.0) Sodium Level 143 MMOL/L (136-145) Potassium Level 3.8 MMOL/L (3.5-5.1) Chloride Level 112 MMOL/L (98-107) H Carbon Dioxide Level 28 MMOL/L (21-32) Anion Gap 3 mmol/L (5-15) L Blood Urea Nitrogen 7 mg/dL (7-18) Creatinine 0.6 MG/DL (0.55-1.30) Estimat Glomerular Filtration Rate > 60 mL/min (>60) Glucose Level 108 MG/DL (74-106) H Calcium Level 7.7 MG/DL (8.5-10.1) L Height (Feet): 5 Height (Inches): 5.00 Weight (Pounds): 154 Medications Current Medications Medications (Trade) Dose Ordered Sig/Betty Route PRN Reason Start Time Stop Time Status Last Admin Dose Admin Pantoprazole (Protonix) 40 mg DAILY IVP 09/30/17 16:30 10/30/17 16:29 10/05/17 10:54 Sodium Chloride 1,000 ml @ 75 mls/hr [id number] IV 09/30/17 18:00 10/30/17 17:59 10/05/17 04:40 Assessment/Plan Problem List: (1) GIB (gastrointestinal bleeding) Assessment & Plan: 67F with lower GI bleed. source found in ileum but unable to reach with standard scope. can potentially reach and manage with double balloon scope which is not available at [facility]. Transfer pending to [facility]. Patient denies recent blood in stool but H/H continues to drop. Has already received 6 units PRBC since admission. Unsure of when transfer will happen. -continue monitoring. -trend H/H -transfuse prn -optimal management would be least invasive. -if h/h becomes stable, no bleeding, can potentially d/c and have scope outpatient -if h/h continues to trend down or has episode of bleeding will need transfusion at first in attempts to stabilize until transfer. -if at anytime unstable or requiring significant transfusions will need urgent laparotomy which I will be available for. thus far has required 6 units over some time and not acutely. ICD Codes: K92.2 - Gastrointestinal hemorrhage, unspecified SNOMED: [id number] Status: stable PonceNestor croweya Oct 05, 2017 18:02
[2017-10-05 20:00] VITALS: BP 118/67
--- NOTE | 2017-10-05 20:59 | General Progress Note ---
Assessment/Plan Assessment/Plan - Assessment - recurrent GIB, suspect terminal small bowel source - diverticulosis - anemia Recommendations -Transfer to [facility] for double baloon colonoscopy - monitor for recurrent bleed - follow CBC - transfuse PRN Subjective Allergies: Coded Allergies: No Known Allergies (Unverified , 12/04/16) Subjective no dai bleeding per rectum today tolerating PO d/w corrections caseworker await bed at [facility] Objective Last 24 Hour Vital Signs Date Time Temp Pulse Resp B/P (MAP) Pulse Ox O2 Delivery O2 Flow Rate FiO2 10/05/17 16:00 101 10/05/17 16:00 97.0 83 19 117/57 98 Room Air 10/05/17 12:00 74 10/05/17 12:00 97.7 82 20 120/68 97 Room Air 10/05/17 08:00 123 10/05/17 08:00 97.1 97 22 139/65 97 Room Air 10/05/17 08:00 123 10/05/17 08:00 109 10/05/17 04:00 97.9 81 20 119/67 99 Room Air 10/05/17 04:00 79 10/05/17 00:00 98.2 97 20 138/73 98 Room Air 10/05/17 00:00 91 Intake and Output 10/04/17 10/05/17 19:00 07:00 Intake Total 360 ml Output Total 200 ml Balance 160 ml Intake Oral 360 ml Output Urine Total 200 ml # Voids 2 1 # Bowel Movements 2 1 Laboratory Tests 10/05/17 00:35: White Blood Count 6.5, Red Blood Count 2.96L, Hemoglobin 9.0#L, Hematocrit 25.7# L, Mean Corpuscular Volume 87, Mean Corpuscular Hemoglobin 30.3, Mean Corpuscular Hemoglobin Concent 34.9, Red Cell Distribution Width 12.9, Platelet Count 187, Mean Platelet Volume 5.8L, Neutrophils (%) (Auto) 61.0, Lymphocytes ( %) (Auto) 26.0, Monocytes (%) (Auto) 10.2H, Eosinophils (%) (Auto) 2.0, Basophils (%) (Auto) 0.9 10/05/17 07:15: White Blood Count 5.4, Red Blood Count 2.66L, Hemoglobin 8.2L, Hematocrit 23.4L , Mean Corpuscular Volume 88, Mean Corpuscular Hemoglobin 30.9, Mean Corpuscular Hemoglobin Concent 35.2, Red Cell Distribution Width 13.3, Platelet Count 191, Mean Platelet Volume 5.6L, Neutrophils (%) (Auto) 65.6, Lymphocytes ( %) (Auto) 23.1, Monocytes (%) (Auto) 9.6, Eosinophils (%) (Auto) 1.2, Basophils (%) (Auto) 0.6, Sodium Level 143, Potassium Level 3.8, Chloride Level 112H, Carbon Dioxide Level 28, Anion Gap 3L, Blood Urea Nitrogen 7, Creatinine 0.6, Estimat Glomerular Filtration Rate > 60, Glucose Level 108H, Calcium Level 7.7L Height (Feet): 5 Height (Inches): 5.00 Weight (Pounds): 154 Objective WDWN woman NCAT supple CTA RRR Soft ND NT no edema non focal ANTON WYATT Oct 05, 2017 20:59
[2017-10-06] VITALS: BP 120/70
[2017-10-06 04:00] VITALS: BP 120/72
[2017-10-06 07:57] LABS: BASOPHILS % (AUTO) 0.5 % (0.0-2.0); EOSINOPHILS % (AUTO) 1.9 % (0.0-3.0); HEMATOCRIT 24.9 % (37.0-47.0); LYMPHOCYTES % (AUTO) 22.9 % (20.0-45.0); MEAN CORPUSCULAR VOLUME 89 FL (80-99); MONOCYTES % (AUTO) 9.1 % (1.0-10.0); NEUTROPHILS % (AUTO) 65.7 % (45.0-75.0); PLATELET COUNT 214 K/UL (150-450); RED BLOOD COUNT 2.81 M/UL (4.20-5.40); RED CELL DISTRIBUTION WIDTH 13.5 % (11.6-14.8); WHITE BLOOD COUNT 4.5 K/UL (4.8-10.8)
[2017-10-06 08:00] VITALS: BP 129/64
[2017-10-06 08:14] LABS: ANION GAP 5 mmol/L (5-15); BLOOD UREA NITROGEN 5 mg/dL (7-18); CALCIUM 8.3 MG/DL (8.5-10.1); CARBON DIOXIDE 30 MMOL/L (21-32); CHLORIDE 107 MMOL/L (98-107); CREATININE 0.5 MG/DL (0.55-1.30); POTASSIUM 3.8 MMOL/L (3.5-5.1); SODIUM 142 MMOL/L (136-145)
[2017-10-06] MEDS: NS w/KCl 20mEq 1,000 ML IV SCH ×2 (08:16→20:05)
[2017-10-06] MEDS: Pantoprazole Inj IVP SCH (08:55)
[2017-10-06 12:02] VITALS: BP 136/80
--- NOTE | 2017-10-06 12:51 | Internal Med Progress Note ---
Subjective Date of Service: Oct 06, 2017 Physician Name Naeem Corrigan Attending Physician Naeem Corrigan Current Medications Medications (Trade) Dose Ordered Sig/Betty Route PRN Reason Start Time Stop Time Status Last Admin Dose Admin Pantoprazole (Protonix) 40 mg DAILY IVP 09/30/17 16:30 10/30/17 16:29 10/06/17 08:55 Sodium Chloride 1,000 ml @ 75 mls/hr [id number] IV 09/30/17 18:00 10/30/17 17:59 10/06/17 08:16 Allergies: Coded Allergies: No Known Allergies (Unverified , 12/04/16) ROS Limited/Unobtainable: No Constitutional: Reports: no symptoms HEENT: Reports: no symptoms Cardiovascular: Reports: no symptoms Respiratory: Reports: no symptoms Gastrointestinal/Abdominal: Reports: rectal bleeding Genitourinary: Reports: no symptoms Neurologic/Psychiatric: Reports: no symptoms Subjective 67 YO F admitted with GI hemorrhage. Cover for Inrt Med-Dr Sánchez. Await transfer to [facility] for dual baloon colonoscopy Objective Last Vital Signs Date Time Temp Pulse Resp B/P (MAP) Pulse Ox O2 Delivery O2 Flow Rate FiO2 10/06/17 12:02 98.1 85 18 136/80 100 Room Air 09/30/17 15:55 6.0 Laboratory Tests Test 10/06/17 07:00 White Blood Count 4.5 K/UL (4.8-10.8) L Red Blood Count 2.81 M/UL (4.20-5.40) L Hemoglobin 9.0 G/DL (12.0-16.0) L Hematocrit 24.9 % (37.0-47.0) L Mean Corpuscular Volume 89 FL (80-99) Mean Corpuscular Hemoglobin 31.8 PG (27.0-31.0) H Mean Corpuscular Hemoglobin Concent 35.9 G/DL (32.0-36.0) Red Cell Distribution Width 13.5 % (11.6-14.8) Platelet Count 214 K/UL (150-450) Mean Platelet Volume 5.8 FL (6.5-10.1) L Neutrophils (%) (Auto) 65.7 % (45.0-75.0) Lymphocytes (%) (Auto) 22.9 % (20.0-45.0) Monocytes (%) (Auto) 9.1 % (1.0-10.0) Eosinophils (%) (Auto) 1.9 % (0.0-3.0) Basophils (%) (Auto) 0.5 % (0.0-2.0) Sodium Level 142 MMOL/L (136-145) Potassium Level 3.8 MMOL/L (3.5-5.1) Chloride Level 107 MMOL/L (98-107) Carbon Dioxide Level 30 MMOL/L (21-32) Anion Gap 5 mmol/L (5-15) Blood Urea Nitrogen 5 mg/dL (7-18) L Creatinine 0.5 MG/DL (0.55-1.30) L Estimat Glomerular Filtration Rate > 60 mL/min (>60) Glucose Level 99 MG/DL (74-106) Calcium Level 8.3 MG/DL (8.5-10.1) L Intake and Output 10/05/17 10/06/17 19:00 07:00 Intake Total 1350 ml 900 ml Output Total 4 ml Balance 1350 ml 896 ml Intake Oral 600 ml IV Total 750 ml 900 ml Output Urine Total 4 ml # Voids 5 # Bowel Movements 2 1 Objective General Appearance: WD/WN, no apparent distress, alert EENT: PERRL/EOMI, normal ENT inspection Neck: non-tender, normal alignment, supple, normal inspection Cardiovascular: normal peripheral pulses, normal rate, regular rhythm, no gallop/murmur, no JVD Respiratory/Chest: chest wall non-tender, lungs clear, normal breath sounds, no respiratory distress, no accessory muscle use Abdomen: normal bowel sounds, non tender, soft, no organomegaly, no mass Extremities: normal range of motion, non-tender Neurologic: belt builder helper II-XII grossly normal, no motor/sensory deficits Skin: normal pigmentation, warm/dry Assessment/Plan Problem List: (1) Diverticulosis large intestine w/o perforation or abscess w/bleeding (2) GIH (gastrointestinal hemorrhage) Assessment & Plan: Prelimijnary Capsule endoscopy=small bowel. See GI note. CT angiogram=WNL. [facility] (3) Severe anemia Assessment & Plan: Due to blood loss. S/P Transfusion 6 unit Packed RBC total. Hemoglobin stable for past 48 hours (4) PUD (peptic ulcer disease) Assessment & Plan: Continue Protonix Assessment/Plan Discharge planning: Transfer to [facility] for double baloon colonoscopy-Dr Sánchez attending; GI=NAEEM Dewitt Oct 06, 2017 12:51
[2017-10-06 16:00] VITALS: BP 110/72
--- NOTE | 2017-10-06 17:16 | Pulmonology Progress Note ---
Assessment/Plan Problems: (1) Hemorrhagic shock (2) PUD (peptic ulcer disease) (3) Emphysema lung (4) Severe anemia Assessment/Plan no now complains, has loose bm prbc prn check eletrolytes pt/ptt respiratory treatment capsule is done lower ileus bleeding transfer to [facility] med/surg h/h stable for the last three days, Subjective ROS Limited/Unobtainable: No Constitutional: Reports: no symptoms HEENT: Repors: no symptoms Respiratory: Reports: no symptoms Allergies: Coded Allergies: No Known Allergies (Unverified , 12/04/16) Objective Last 24 Hour Vital Signs Date Time Temp Pulse Resp B/P (MAP) Pulse Ox O2 Delivery O2 Flow Rate FiO2 10/06/17 16:00 97.7 81 18 110/72 98 Room Air 10/06/17 12:02 98.1 85 18 136/80 100 Room Air 10/06/17 12:00 80 10/06/17 08:00 97.9 84 20 129/64 99 Room Air 10/06/17 08:00 125 10/06/17 04:00 91 10/06/17 04:00 98.5 89 20 120/72 99 Room Air 10/06/17 00:00 98.5 89 20 120/70 99 Room Air 10/05/17 20:00 98.7 91 20 118/67 98 Room Air 10/05/17 20:00 91 Intake and Output 10/05/17 10/06/17 19:00 07:00 Intake Total 1350 ml 900 ml Output Total 4 ml Balance 1350 ml 896 ml Intake Oral 600 ml IV Total 750 ml 900 ml Output Urine Total 4 ml # Voids 5 # Bowel Movements 2 1 Objective General Appearance: alert, obese, NAD Lines, tubes and drains: peripheral HEENT: normocephalic, atraumatic, anicteric, mucous membranes moist, PERRL Neck: non-tender, supple - no meningeal signs Respiratory/Chest: chest wall non-tender, lungs clear, no respiratory distress , no accessory muscle use Cardiovascular/Chest: normal peripheral pulses, regular rhythm, SR on tele Abdomen: normal bowel sounds, non tender - obese, soft Neurologic: 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 II-XII grossly normal, no motor/sensory deficits, alert, oriented x 3, responsive Musculoskeletal: normal muscle bulk Laboratory Tests 10/06/17 07:00: White Blood Count 4.5L, Red Blood Count 2.81L, Hemoglobin 9.0L, Hematocrit 24.9L , Mean Corpuscular Volume 89, Mean Corpuscular Hemoglobin 31.8H, Mean Corpuscular Hemoglobin Concent 35.9, Red Cell Distribution Width 13.5, Platelet Count 214, Mean Platelet Volume 5.8L, Neutrophils (%) (Auto) 65.7, Lymphocytes ( %) (Auto) 22.9, Monocytes (%) (Auto) 9.1, Eosinophils (%) (Auto) 1.9, Basophils (%) (Auto) 0.5, Sodium Level 142, Potassium Level 3.8, Chloride Level 107, Carbon Dioxide Level 30, Anion Gap 5, Blood Urea Nitrogen 5L, Creatinine 0.5L, Estimat Glomerular Filtration Rate > 60, Glucose Level 99, Calcium Level 8.3L Current Medications Medications (Trade) Dose Ordered Sig/Betty Route PRN Reason Start Time Stop Time Status Last Admin Dose Admin Pantoprazole (Protonix) 40 mg DAILY IVP 09/30/17 16:30 10/30/17 16:29 10/06/17 08:55 Sodium Chloride 1,000 ml @ 75 mls/hr [id number] IV 09/30/17 18:00 10/30/17 17:59 10/06/17 08:16 TREVOR GONSALES Oct 06, 2017 17:16
--- NOTE | 2017-10-06 17:24 | General Surgery Progress Note ---
General Surgery-Progress Note Subjective Symptoms: improved Additional Comments doing well. no acute events. no further bleeding noted Objective Last 24 Hour Vital Signs Date Time Temp Pulse Resp B/P (MAP) Pulse Ox O2 Delivery O2 Flow Rate FiO2 10/06/17 16:00 97.7 81 18 110/72 98 Room Air 10/06/17 12:02 98.1 85 18 136/80 100 Room Air 10/06/17 12:00 80 10/06/17 08:00 97.9 84 20 129/64 99 Room Air 10/06/17 08:00 125 10/06/17 04:00 91 10/06/17 04:00 98.5 89 20 120/72 99 Room Air 10/06/17 00:00 98.5 89 20 120/70 99 Room Air 10/05/17 20:00 98.7 91 20 118/67 98 Room Air 10/05/17 20:00 91 I&O Intake and Output 10/05/17 10/06/17 19:00 07:00 Intake Total 1350 ml 900 ml Output Total 4 ml Balance 1350 ml 896 ml Intake Oral 600 ml IV Total 750 ml 900 ml Output Urine Total 4 ml # Voids 5 # Bowel Movements 2 1 Cardiovascular: RSR Respiratory: clear Abdomen: soft, non-tender, present bowel sounds Extremities: no tenderness Laboratory Tests Test 10/06/17 07:00 White Blood Count 4.5 K/UL (4.8-10.8) L Red Blood Count 2.81 M/UL (4.20-5.40) L Hemoglobin 9.0 G/DL (12.0-16.0) L Hematocrit 24.9 % (37.0-47.0) L Mean Corpuscular Volume 89 FL (80-99) Mean Corpuscular Hemoglobin 31.8 PG (27.0-31.0) H Mean Corpuscular Hemoglobin Concent 35.9 G/DL (32.0-36.0) Red Cell Distribution Width 13.5 % (11.6-14.8) Platelet Count 214 K/UL (150-450) Mean Platelet Volume 5.8 FL (6.5-10.1) L Neutrophils (%) (Auto) 65.7 % (45.0-75.0) Lymphocytes (%) (Auto) 22.9 % (20.0-45.0) Monocytes (%) (Auto) 9.1 % (1.0-10.0) Eosinophils (%) (Auto) 1.9 % (0.0-3.0) Basophils (%) (Auto) 0.5 % (0.0-2.0) Sodium Level 142 MMOL/L (136-145) Potassium Level 3.8 MMOL/L (3.5-5.1) Chloride Level 107 MMOL/L (98-107) Carbon Dioxide Level 30 MMOL/L (21-32) Anion Gap 5 mmol/L (5-15) Blood Urea Nitrogen 5 mg/dL (7-18) L Creatinine 0.5 MG/DL (0.55-1.30) L Estimat Glomerular Filtration Rate > 60 mL/min (>60) Glucose Level 99 MG/DL (74-106) Calcium Level 8.3 MG/DL (8.5-10.1) L Plan Problems: (1) GIB (gastrointestinal bleeding) Assessment & Plan: 67F with lower GI bleed. source found in ileum but unable to reach with standard scope. can potentially reach and manage with double balloon scope which is not available at [facility]. Transfer pending to [facility]. Patient denies recent blood in stool but H/H continues to drop. Has already received 6 units PRBC since admission. Unsure of when transfer will happen. -continue monitoring. -trend H/H -transfuse prn -optimal management would be least invasive. -if h/h becomes stable, no bleeding, can potentially d/c and have scope outpatient -if h/h continues to trend down or has episode of bleeding will need transfusion at first in attempts to stabilize until transfer. -if at anytime unstable or requiring significant transfusions will need urgent laparotomy which I will be available for. thus far has required 6 units over some time and not acutely. Bob Gibson Oct 06, 2017 17:24
[2017-10-06 20:00] VITALS: BP 126/69
--- NOTE | 2017-10-06 21:03 | General Progress Note ---
Assessment/Plan Assessment/Plan - Assessment - recurrent GIB, suspect terminal small bowel source - diverticulosis - anemia Recommendations -Awaiting transfer to [facility] for double baloon colonoscopy - if no further bleeding, can consider outpatient GI w/u - monitor for recurrent bleed - follow CBC - transfuse PRN Subjective Allergies: Coded Allergies: No Known Allergies (Unverified , 12/04/16) Subjective no further GI bleeding tolerating PO d/w case management assistant await bed at [facility] Objective Last 24 Hour Vital Signs Date Time Temp Pulse Resp B/P (MAP) Pulse Ox O2 Delivery O2 Flow Rate FiO2 10/06/17 16:00 97.7 81 18 110/72 98 Room Air 10/06/17 16:00 75 10/06/17 12:02 98.1 85 18 136/80 100 Room Air 10/06/17 12:00 80 10/06/17 08:00 97.9 84 20 129/64 99 Room Air 10/06/17 08:00 125 10/06/17 04:00 91 10/06/17 04:00 98.5 89 20 120/72 99 Room Air 10/06/17 00:00 98.5 89 20 120/70 99 Room Air Intake and Output 10/05/17 10/06/17 19:00 07:00 Intake Total 1350 ml 900 ml Output Total 4 ml Balance 1350 ml 896 ml Intake Oral 600 ml IV Total 750 ml 900 ml Output Urine Total 4 ml # Voids 5 # Bowel Movements 2 1 Laboratory Tests 10/06/17 07:00: White Blood Count 4.5L, Red Blood Count 2.81L, Hemoglobin 9.0L, Hematocrit 24.9L , Mean Corpuscular Volume 89, Mean Corpuscular Hemoglobin 31.8H, Mean Corpuscular Hemoglobin Concent 35.9, Red Cell Distribution Width 13.5, Platelet Count 214, Mean Platelet Volume 5.8L, Neutrophils (%) (Auto) 65.7, Lymphocytes ( %) (Auto) 22.9, Monocytes (%) (Auto) 9.1, Eosinophils (%) (Auto) 1.9, Basophils (%) (Auto) 0.5, Sodium Level 142, Potassium Level 3.8, Chloride Level 107, Carbon Dioxide Level 30, Anion Gap 5, Blood Urea Nitrogen 5L, Creatinine 0.5L, Estimat Glomerular Filtration Rate > 60, Glucose Level 99, Calcium Level 8.3L Height (Feet): 5 Height (Inches): 5.00 Weight (Pounds): 154 Objective WDWN woman NCAT supple CTA RRR Soft ND NT no edema non focal ANTON WYATT Oct 06, 2017 21:03
[2017-10-07] VITALS: BP 105/69
[2017-10-07 04:00] VITALS: BP 128/61
[2017-10-07 08:00] VITALS: BP 149/20
[2017-10-07] MEDS: Pantoprazole Inj IVP SCH (08:58)
[2017-10-07 09:31] LABS: BASOPHILS % (AUTO) 0.3 % (0.0-2.0); EOSINOPHILS % (AUTO) 0.9 % (0.0-3.0); HEMOGLOBIN 9.3 G/DL (12.0-16.0); LYMPHOCYTES % (AUTO) 14.8 % (20.0-45.0); MEAN CORPUSCULAR VOLUME 91 FL (80-99); MONOCYTES % (AUTO) 8.8 % (1.0-10.0); NEUTROPHILS % (AUTO) 75.2 % (45.0-75.0); PLATELET COUNT 229 K/UL (150-450); RED BLOOD COUNT 2.97 M/UL (4.20-5.40); RED CELL DISTRIBUTION WIDTH 14.3 % (11.6-14.8); WHITE BLOOD COUNT 5.6 K/UL (4.8-10.8)
[2017-10-07 10:00] LABS: ANION GAP 2 mmol/L (5-15); BLOOD UREA NITROGEN 8 mg/dL (7-18); CALCIUM 8.3 MG/DL (8.5-10.1); CARBON DIOXIDE 32 MMOL/L (21-32); CHLORIDE 106 MMOL/L (98-107); CREATININE 0.5 MG/DL (0.55-1.30); POTASSIUM 4.3 MMOL/L (3.5-5.1); SODIUM 140 MMOL/L (136-145)
[2017-10-07] MEDS: NS w/KCl 20mEq 1,000 ML IV SCH (10:22)
--- NOTE | 2017-10-07 11:11 | General Surgery Progress Note ---
General Surgery-Progress Note Subjective Additional Comments no acute events. doing well. no further bleeding episodes. h/h stable. Objective Last 24 Hour Vital Signs Date Time Temp Pulse Resp B/P (MAP) Pulse Ox O2 Delivery O2 Flow Rate FiO2 10/07/17 08:00 98.2 100 21 149/20 99 Room Air 10/07/17 04:00 97.7 91 18 128/61 96 Room Air 10/07/17 04:00 69 10/07/17 01:00 92 10/07/17 00:00 98.1 94 18 105/69 95 Room Air 10/06/17 20:00 88 10/06/17 20:00 97.9 95 18 126/69 97 Room Air 10/06/17 16:00 97.7 81 18 110/72 98 Room Air 10/06/17 16:00 75 10/06/17 12:02 98.1 85 18 136/80 100 Room Air 10/06/17 12:00 80 I&O Intake and Output 10/06/17 10/07/17 19:00 07:00 Intake Total 1440 ml 825 ml Output Total 600 ml 300 ml Balance 840 ml 525 ml Intake Oral 690 ml IV Total 750 ml 825 ml Output Urine Total 600 ml 300 ml # Voids 2 # Bowel Movements 1 1 Cardiovascular: RSR Respiratory: clear Abdomen: soft, flat, non-tender, present bowel sounds Extremities: no cyanosis Laboratory Tests Test 10/07/17 07:50 White Blood Count 5.6 K/UL (4.8-10.8) Red Blood Count 2.97 M/UL (4.20-5.40) L Hemoglobin 9.3 G/DL (12.0-16.0) L Hematocrit 27.0 % (37.0-47.0) L Mean Corpuscular Volume 91 FL (80-99) Mean Corpuscular Hemoglobin 31.2 PG (27.0-31.0) H Mean Corpuscular Hemoglobin Concent 34.3 G/DL (32.0-36.0) Red Cell Distribution Width 14.3 % (11.6-14.8) Platelet Count 229 K/UL (150-450) Mean Platelet Volume 5.6 FL (6.5-10.1) L Neutrophils (%) (Auto) 75.2 % (45.0-75.0) H Lymphocytes (%) (Auto) 14.8 % (20.0-45.0) L Monocytes (%) (Auto) 8.8 % (1.0-10.0) Eosinophils (%) (Auto) 0.9 % (0.0-3.0) Basophils (%) (Auto) 0.3 % (0.0-2.0) Sodium Level 140 MMOL/L (136-145) Potassium Level 4.3 MMOL/L (3.5-5.1) Chloride Level 106 MMOL/L (98-107) Carbon Dioxide Level 32 MMOL/L (21-32) Anion Gap 2 mmol/L (5-15) L Blood Urea Nitrogen 8 mg/dL (7-18) Creatinine 0.5 MG/DL (0.55-1.30) L Estimat Glomerular Filtration Rate > 60 mL/min (>60) Glucose Level 93 MG/DL (74-106) Calcium Level 8.3 MG/DL (8.5-10.1) L Plan Problems: (1) GIB (gastrointestinal bleeding) Assessment & Plan: 67F with lower GI bleed. source found in ileum but unable to reach with standard scope. can potentially reach and manage with double balloon scope which [place] not available [place] [facility] pending [facility]. Patient denies recent blood in stool but H/H continues to drop. Has already received 6 units PRBC since admission. Unsure of when transfer will happen. -difficulty with transfer currently given no available beds. fortunately she has not had bleeding episode for >72hrs and has not required transfusion for some time. H/H has been stable. okay from surgical standpoint to d/c if transfer not possible. can start remainder of work up as outpatient. if any issues (bleeding, change in status) needs to return to ED right away. thank you for allowing me to participate in patients care. Bob Gibson Oct 07, 2017 11:11
[2017-10-07 12:00] VITALS: BP 145/82
--- NOTE | 2017-10-07 14:46 | Pulmonology Progress Note ---
Assessment/Plan Problems: (1) Hemorrhagic shock (2) PUD (peptic ulcer disease) (3) Emphysema lung (4) Severe anemia Assessment/Plan no now complains, has loose bm h/h stable for the last three days, pt doesn't want to stay to get transferred to [facility]. Subjective ROS Limited/Unobtainable: No Constitutional: Reports: no symptoms HEENT: Repors: no symptoms Allergies: Coded Allergies: No Known Allergies (Unverified , 12/04/16) Objective Last 24 Hour Vital Signs Date Time Temp Pulse Resp B/P (MAP) Pulse Ox O2 Delivery O2 Flow Rate FiO2 10/07/17 12:00 72 10/07/17 12:00 97.0 81 21 145/82 99 Room Air 10/07/17 08:00 98.2 100 21 149/20 99 Room Air 10/07/17 08:00 107 10/07/17 04:00 97.7 91 18 128/61 96 Room Air 10/07/17 04:00 69 10/07/17 01:00 92 10/07/17 00:00 98.1 94 18 105/69 95 Room Air 10/06/17 20:00 88 10/06/17 20:00 97.9 95 18 126/69 97 Room Air 10/06/17 16:00 97.7 81 18 110/72 98 Room Air 10/06/17 16:00 75 Intake and Output 10/06/17 10/07/17 19:00 07:00 Intake Total 1440 ml 825 ml Output Total 600 ml 300 ml Balance 840 ml 525 ml Intake Oral 690 ml IV Total 750 ml 825 ml Output Urine Total 600 ml 300 ml # Voids 2 # Bowel Movements 1 1 Objective General Appearance: alert, obese, NAD Lines, tubes and drains: peripheral HEENT: normocephalic, atraumatic, anicteric, mucous membranes moist, PERRL Neck: non-tender, supple - no meningeal signs Respiratory/Chest: chest wall non-tender, lungs clear, no respiratory distress , no accessory muscle use Cardiovascular/Chest: normal peripheral pulses, regular rhythm, SR on tele Abdomen: normal bowel sounds, non tender - obese, soft 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, no motor/sensory deficits, alert, oriented x 3, responsive Musculoskeletal: normal muscle bulk Laboratory Tests 10/07/17 07:50: White Blood Count 5.6, Red Blood Count 2.97L, Hemoglobin 9.3L, Hematocrit 27.0L , Mean Corpuscular Volume 91, Mean Corpuscular Hemoglobin 31.2H, Mean Corpuscular Hemoglobin Concent 34.3, Red Cell Distribution Width 14.3, Platelet Count 229, Mean Platelet Volume 5.6L, Neutrophils (%) (Auto) 75.2H, Lymphocytes (%) (Auto) 14.8L, Monocytes (%) (Auto) 8.8, Eosinophils (%) (Auto) 0.9, Basophils (%) (Auto) 0.3, Sodium Level 140, Potassium Level 4.3, Chloride Level 106, Carbon Dioxide Level 32, Anion Gap 2L, Blood Urea Nitrogen 8, Creatinine 0.5L, Estimat Glomerular Filtration Rate > 60, Glucose Level 93, Calcium Level 8.3L Current Medications Medications (Trade) Dose Ordered Sig/Betty Route PRN Reason Start Time Stop Time Status Last Admin Dose Admin Pantoprazole (Protonix) 40 mg DAILY IVP 09/30/17 16:30 10/30/17 16:29 10/07/17 08:58 Sodium Chloride 1,000 ml @ 75 mls/hr [id number] IV 09/30/17 18:00 10/30/17 17:59 10/07/17 10:22 TREVOR GONSALES Oct 07, 2017 14:46
[2017-10-07 16:00] VITALS: BP 139/73
[2017-10-07] MEDS ORDERED: NS 275ml ONE (17:04)
[2017-10-07] MEDS ORDERED: Tubing Blood Filter IV ONE (17:04)
--- NOTE | 2017-10-07 17:07 | General Progress Note ---
Assessment/Plan Assessment/Plan - Assessment - recurrent GIB, suspect terminal small bowel source - diverticulosis - anemia Recommendations - outpatient GI w/u - monitor for recurrent bleed - follow CBC - transfuse PRN Subjective Allergies: Coded Allergies: No Known Allergies (Unverified , 12/04/16) Subjective no further GI bleeding tolerating PO plans for d/c noted advised to f/u with GI as outpt Objective Last 24 Hour Vital Signs Date Time Temp Pulse Resp B/P (MAP) Pulse Ox O2 Delivery O2 Flow Rate FiO2 10/07/17 16:00 97.8 90 21 139/73 97 Room Air 10/07/17 12:00 72 10/07/17 12:00 97.0 81 21 145/82 99 Room Air 10/07/17 08:00 98.2 100 21 149/20 99 Room Air 10/07/17 08:00 107 10/07/17 04:00 97.7 91 18 128/61 96 Room Air 10/07/17 04:00 69 10/07/17 01:00 92 10/07/17 00:00 98.1 94 18 105/69 95 Room Air 10/06/17 20:00 88 10/06/17 20:00 97.9 95 18 126/69 97 Room Air Intake and Output 10/06/17 10/07/17 19:00 07:00 Intake Total 1440 ml 825 ml Output Total 600 ml 300 ml Balance 840 ml 525 ml Intake Oral 690 ml IV Total 750 ml 825 ml Output Urine Total 600 ml 300 ml # Voids 2 # Bowel Movements 1 1 Laboratory Tests 10/07/17 07:50: White Blood Count 5.6, Red Blood Count 2.97L, Hemoglobin 9.3L, Hematocrit 27.0L , Mean Corpuscular Volume 91, Mean Corpuscular Hemoglobin 31.2H, Mean Corpuscular Hemoglobin Concent 34.3, Red Cell Distribution Width 14.3, Platelet Count 229, Mean Platelet Volume 5.6L, Neutrophils (%) (Auto) 75.2H, Lymphocytes (%) (Auto) 14.8L, Monocytes (%) (Auto) 8.8, Eosinophils (%) (Auto) 0.9, Basophils (%) (Auto) 0.3, Sodium Level 140, Potassium Level 4.3, Chloride Level 106, Carbon Dioxide Level 32, Anion Gap 2L, Blood Urea Nitrogen 8, Creatinine 0.5L, Estimat Glomerular Filtration Rate > 60, Glucose Level 93, Calcium Level 8.3L Height (Feet): 5 Height (Inches): 5.00 Weight (Pounds): 154 Objective WDWN woman NCAT supple CTA RRR Soft ND NT no edema non focal ANTON WYATT Oct 07, 2017 17:07
--- NOTE | 2017-10-10 12:01 | Discharge Summary ---
Discharge Summary Hospital Course Date of Admission Sep 30, 2017 at 00:39 Date of Discharge Oct 07, 2017 at 17:05 Admitting Diagnosis LOWER GI BLEED HPI Chana Grover is a 67 year old female who was admitted on Sep 30, 2017 at 00: 39 for Lower Gi Bleed Hospital Course dc summary #[id number] Discharge Medications Continued Medications: Acetaminophen* (Tylenol Extra Strength*) 500 Mg Tablet 500 MG ORAL Q8H PRN for Prn Headache/Temp > 101, #30 TAB 0 Refills Pantoprazole* (Protonix*) 40 Mg Tablet. 40 MG ORAL BIAC, #30 TAB Discharge Condition Upon Discharge: stable Discharge Disposition Patient was discharged to Home () Discharge Diagnoses: Discharge Instructions Discharge Instructions Special Instructions I have been assigned to complete a D/C Summary on this account. I was not involved in the patient management Marcia Pennington NP ([place]te[place]) Oct 10, 2017 12:01
--- NOTE | 2017-10-11 05:00 | Discharge Summary 2 SIG ---
DATE OF ADMISSION: 09/30/2017 DATE OF DISCHARGE: 10/07/2017 REASON FOR ADMISSION: 67-year-old female with a history of GI bleeding, presented with rectal bleeding for one day. The patient denied aspirin and nonsteroid anti-inflammatory drug use. She had been followed by Dr. Nash, the GI specialist. She denied dizziness or lightheadedness. In the emergency department, the patient found to be tachycardic with a heart rate of 120, blood pressure was 146/101, and pulse oximetry was stable , 97% on room air. No leukocytosis. Initial hemoglobin- 14.4 and hematocrit- 41.8. Coagulation profile within normal limits. Electrolytes reveal a low potassium -3.3, otherwise unremarkable. LFT within normal limits. The patient undergone stat abdominal and pelvis CTA, which revealed no evidence of abdominal aortic aneurysmal dissection. Major branches of the aorta appeared widely patent. [id number] atherosclerotic disease was noted. The patient was admitted with a diagnosis of recurrent gastrointestinal bleeding. HOSPITAL COURSE: The patient was admitted. GI consult was requested. GI seen and evaluated the patient. The patient had underlying history of peptic ulcer disease and diverticulosis. The patient's previous colonoscopy showed diverticular disease . The patient was initially NPO with GI preparation for colonoscopy. She was started on the IV fluids, serial CBCs were monitored. On 09/30/2017, the patient had undergone colonoscopy with snare polypectomy .It revealed diverticular disease and sigmoid polyp. Upper endoscopy revealed gastric scar and hiatal hernia. Colonoscopy also revealed blood in terminal ileum. GI was suspected terminal small bowel source. On the next day, hemoglobin down to 7.6 and hematocrit- 22.7 from initial hemoglobin of 14.4 and hematocrit -41.8. The patient was transfused. The patient continued to be bleeding for additional few days. The patient was placed on the waiting list for [facility] for double balloon colonoscopy. Meantime, the patient undergone capsule endoscopy. The patient undergone total of 7 units of packed red blood cell transfusion. Bleeding finally stopped, and prior to discharge, hemoglobin-9.3 and hematocrit -27. Unfortunately, no bed was available at [facility] for transfer. GI specialist cleared the patient for discharge home with outpatient GI workup , since active bleeding stopped and no evidence of dai bleeding thereafter. Hemoglobin and hematocrit remained stable. The patient was started on diet and was able to tolerate it. The patient was on PPI . Electrolytes were closely monitored and corrected as needed. Supplemental oxygen and pulmonary toilet was on board, however, pulse oximetry was stable on room air. The patient was stable for discharge home with outpatient GI workup as advised by GI. FINAL DIAGNOSES: 1. Recurrent gastrointestinal bleeding (suspecting terminal small bowel source). 2. Diverticulosis. 3. Severe anemia requiring blood transfusion. 4. Status post colonoscopy with finding of diverticular disease, sigmoid polyp and blood in the terminal ileum. 5. Status post esophagogastroduodenoscopy with findings of hiatal hernia and gastric scar. 6. Emphysema of the lung. DISCHARGE MEDICATIONS: See medication reconciliation list. DISCHARGE INSTRUCTIONS: The patient was discharged home. Follow up with the outpatient GI workup. Brian Sánchez M.D. I have been assigned to dictate discharge summary on this account and I was not involved in the patient's management. Marcia [facility] Hospital[facility]annie NMelanie DR: THUY JOB#: [id number] CC: ALEXANDRO
== END 2017-10-07 17:05 | disposition home or self-care (01) | DRG 377 ==
LOC: EMR 09-30 00:15 → 2E 09-30 00:39 → EDBEDREQ 09-30 01:37 → 2E 10-01 15:03
DX: K57.11 Diverticulosis of small intestine without perforation or abscess with bleeding (principal); R57.8 Other shock; Z87.891 Personal history of nicotine dependence; K57.90 Diverticulosis of intestine, part unspecified, without perforation or abscess without bleeding; J43.9 Emphysema, unspecified; Z87.11 Personal history of peptic ulcer disease; K63.5 Polyp of colon; K44.9 Diaphragmatic hernia without obstruction or gangrene; D50.0 Iron deficiency anemia secondary to blood loss (chronic); Z86.010 Personal history of colon polyps
CPT/HCPCS: 36415; 74175; 78278; 80048; 80053; 84484; 85007; 85025; 85610; 85730; 86850; 86900; 86901; 86920; 93005; 99285